=== PATIENT | female | born 1950 | race Caucasian/White ===

== ENCOUNTER 2016-06-30 21:20 | Emergency (ER) | payer OTHER ==
[~2016-06-30] VITALS: Ht 152.4 cm; Wt 83.5 kg
[~2016-06-30 21:20] MED LIST: BUPR1TAB29 PO; EFFE150C PO; HYDR-3533 PO; LISI40TA PO; MIRA0.25 PO; ROPI2TAB PO; TRIA1TAB5 PO; [UNRECOGNIZED DRUG - CODE] PO
[2016-06-30 21:47] VITALS: BP 92/55; PULSE 77; RESP 16; TEMP 98.7; O2SAT 97
[2016-06-30] MEDS ORDERED: AMLO5TAB2 PO (22:08)
--- NOTE | 2016-06-30 22:22 | PD ---
HPI Chief Complaint: Pain: Acute or Chronic Time Seen by Provider: 22:21 Travel History International Travel<30 days: No Contact w/Intl Traveler<30days: No Traveled to known affect area: No History of Present Illness HPI Patient 66-year-old female with chronic right knee pain scheduled for TKR with Dr. Mallory on 07/11/15. She has been using her opioid sparingly and unfortunately has had acute pain today. She took none yesterday and none this morning and had acute worsening in the afternoon, denies any injury. She states that she took 2 hydrocodone 10 mg at 6 PM. She came here because they were not helping much but while waiting she did start to feel improvement. As I talk with hand examine her she states that her pain is relatively minor at this point. She denies any other medical complaints at this time including dizziness, chest pain, headache. PFSH Past Medical History Hx Anticoagulant Therapy: No Arthritis: Yes (RHEUMATOID) Asthma: Yes Autoimmune Disease: Yes (Systemic LUPUS, RA, FIBROMYALGIA) Blood Disorders: No Anxiety: Yes Depression: Yes Cardiovascular Problems: Yes (htn takes no meds) COPD: Yes Diabetes: No Diminished Hearing: No Fibromyalgia: Yes Gastrointestinal Disorders: No Gout: Yes Genitourinary: No Headaches: Yes Hypertension: Yes Immune Disorder: Yes (lupus) Implanted Vascular Access Dvce: No Musculoskeletal: Yes (BILATERAL PLANTAR FASCITIS) Neurologic: Yes Psychiatric: Yes (INPATIENT FOR NERVOUS BREAKDOWN 1969-) Reproductive: No Respiratory: Yes (asthma) Immunizations Current: Yes Migraines: Yes Tetanus Vaccination: < 5 Years Influenza Vaccination: Yes ?: Not Menopausal: Yes Past Surgical History Oral Surgery: Yes Other Surgery: Yes (HEMORRHOIDECTOMY) Social History Alcohol Use: Yes (Occ.) Tobacco Use: No Substance Use: No Allergies-Medications (Allergen,Severity, Reaction): Coded Allergies: Keflex (Verified Allergy, Severe, ANAPHYLAXIS, 06/30/16) Cat Dander (Verified Allergy, Intermediate, rhinitis, 06/30/16) Cultivated Oat Pollen (Verified Allergy, Intermediate, "Pollen Allergy" per patient report, 06/30/16) Dust (Verified Allergy, Intermediate, environmental allergy, 06/30/16) Lyrica (Verified Allergy, Intermediate, rash, 06/30/16) Molds and Smuts (Verified Allergy, Intermediate, environmental , 06/30/16) Prednisone (Verified Allergy, Intermediate, rash, 06/30/16) Penicillin (Verified Allergy, Mild, itching, 06/30/16) Sulfa (Verified Allergy, Mild, oral sores, 06/30/16) Gabapentin (Verified Adverse Reaction, Mild, falls, 06/30/16) Reported Meds & Prescriptions Reported Meds & Active Scripts Active Lortab (Hydrocodone-Acetaminophen) 5-325 Mg Tab 1 Tab PO Q6H PRN Reported Amlodipine (Amlodipine Besylate) 5 Mg Tab 5 Mg PO DAILY Triamterene-Hydrochlorothiazide 75-50 Mg Tab 1 Tab PO DAILY Ropinirole 2 Mg Tab 2 Mg PO HS Mirapex (Pramipexole Dihydrochloride) 0.25 Mg Tab 0.25 Mg PO DAILY Lisinopril 40 Mg Tab 40 Mg PO DAILY Effexor XR 24 HR (Venlafaxine HCl) 150 Mg Cap 225 Mg PO DAILY Bupropion HCl ER 12 HR (Bupropion HCl) 150 Mg Tab 150 Mg PO DAILY Review of Systems Eyes: No: Blurred Vision HENT: No: Headaches, Vertigo, Lightheadedness Cardiovascular: No: Chest Pain or Discomfort Respiratory: No: Shortness of Breath Musculoskeletal: Positive: Other (see the history of present illness) Neurologic: No: Weakness, Focal Abnormalities, Paresthesia, Sensory Disturbance Physical Exam Narrative GENERAL: Well-developed and well-nourished adult female in no acute distress. SKIN: Warm and dry. Good turgor without tenting. HEAD: Normocephalic and atraumatic. EYES: PERRL bilaterally, 5mm. EOMI bilaterally. No injection or icterus present. No proptosis. Lids without edema or erythema. NECK: Supple, no midline tenderness, crepitus or step-offs. Trachea midline, no JVD. No cervical or facial lymphadenopathy. CARDIOVASCULAR: Regular rate and rhythm without murmurs, rubs, clicks or gallops. Dorsalis pedis and posterior tibial pulses 2+ bilaterally. Trace bilateral pedal edema. Negative bilateral Homans sign. RESPIRATORY: Clear to auscultation bilaterally with symmetrical rise and fall, no distress or use of accessory muscles. MUSCULOSKELETAL: Right knee has no tenderness to palpation. Wrist range of motion in flexion, full extension. Has crepitus with flexion. No edema or warmth or discoloration of the right knee. Patient freely moving all four extremities spontaneously. Extremities without clubbing or cyanosis. No obvious deformities. NEUROLOGIC: CN II-XII grossly intact. Awake and alert. Strength 5/5 bilateral knee flexion, knee extension, plantar and dorsiflexion. Sensation intact distal tip of all toes of right foot. Normal speech. PSYCHIATRIC: Appropriate mood and affect; insight and judgment normal. Data Data Last Documented VS Vital Signs Date Time Temp Pulse Resp B/P Pulse Ox O2 Delivery O2 Flow Rate FiO2 06/30/16 21:47 98.7 77 16 92/55 97 MDM Medical Decision Making Medical Screen Exam Complete: Yes Emergency Medical Condition: Yes Differential Diagnosis Chronic pain versus acute on chronic pain versus noncompliance versus hypotension Narrative Course Patient is a 66-year-old female presenting with acute on chronic knee pain despite no new injuries. She has been using a subtherapeutic dose of her opioid and was recently taken off of anti-inflammatories. Proximally 4 hours prior to exam she took 20 mg of hydrocodone which started to begin to work while she was here. She reports near complete resolution of the pain. This time there is no emergent treatment necessary. Her blood pressure was slightly low, likely secondary to the opioids however states she frequently runs low and she consistently denies any cardiopulmonary or neurologic symptoms. I discussed with Dr. Oviedo who agrees there is no need for emergent workup or treatment at this time. Patient will be driven home by her and recommend she take her blood pressure in the morning before taking her blood pressure medications and not take unless systolic blood pressure is greater than 130. Recommend contacting her orthopedist in the morning for pain management plan.See discharge paperwork for further instructions. The plan was discussed with the patient who acknowledged their understanding and agreement. Reinforced the follow-up with primary care is critically important. Patient instructed on emergent conditions that should prompt return to ED. Diagnosis Primary Impression: Osteoarthritis of right knee Qualified Code: M17.11 - Primary osteoarthritis of right knee Patient Instructions: General Instructions Additional Instructions: Do not take any more pain medication tonight Recommend restarting in the morning and take every 8 hours as needed to avoid severe pain Check blood pressure in the morning and only take her blood pressure medications if systolic blood pressure is greater than 130 Follow-up with your PCP or orthopedist tomorrow Return to the ED for any acute worsening of symptoms Disposition: 01 DISCHARGE HOME Condition: Stable Bryan Osborne III Jun 30, 2016 22:22
== END 2016-06-30 22:50 | disposition home or self-care (01) ==
LOC: PHED 21:20 → PHEFT 22:50
DX: M17.11 Unilateral primary osteoarthritis, right knee (principal); G89.29 Other chronic pain
CPT/HCPCS: 99283

== ENCOUNTER 2016-07-04 16:20 | Inpatient (IN) | payer OTHER, MEDICARE ==
[~2016-07-04] VITALS: Ht 152.4 cm; Wt 87.7 kg
[~2016-07-04 16:20] MED LIST changes: +AMLO5TAB2 PO; -[UNRECOGNIZED DRUG - CODE] PO
[2016-07-11] MEDS ORDERED: METOPROLOL TARTRATE 25 MG TAB PO PRN (12:00)
[2016-07-11] MEDS ORDERED: NEOSTIGMINE 3 MG/3 ML SYR IV ONE (12:00)
[2016-07-11] MEDS ORDERED: ROPIVACAINE PERI-ARTICULAR INJECTION. PERIART SCH ×5 (12:00)
[2016-07-11] MEDS ORDERED: INSULIN HUMAN REGULAR 1,000 UNITS/10 ML VIAL SQ PRN (12:00)
[2016-07-11] MEDS ORDERED: ONDANSETRON HCL 4 MG/2 ML VIAL IV PUSH ONE (12:00)
[2016-07-11] MEDS ORDERED: LACTATED RINGER'S 1000 ML INJ 1,000 ML IV ONE (12:00)
[2016-07-11] MEDS: SODIUM CHLORID 0.9% 500 ML IV SCH (12:00)
[2016-07-11] MEDS: LACTATED RINGER'S 1000 ML IV SCH (12:00)
[2016-07-11] MEDS ORDERED: VANCOMYCIN 1000 MG/NS 250 ML (for <70 kg) IV SCH ×2 (12:00)
[2016-07-11] MEDS ORDERED: PROPOFOL 200 MG/20 ML AMP IV ONE (12:00)
[2016-07-11] MEDS ORDERED: GENTAMICIN SULFATE 80 MG/2 ML VIAL ONE (12:28)
[2016-07-11] MEDS ORDERED: CLINDAMYCIN INJ 900 MG in SODIUM CHLORIDE 0.9% INJ 100 ML IV SCH (12:30)
[2016-07-11] MEDS ORDERED: VENL75TA PO (12:41)
[2016-07-11] MEDS ORDERED: HYDR-3535 PO (12:41)
[2016-07-11] MEDS ORDERED: K-TA10TA PO (12:41)
[2016-07-11] MEDS ORDERED: TIZA4TAB PO (12:41)
[2016-07-11] MEDS ORDERED: CYCL1TAB29 PO (12:41)
[2016-07-11 12:48] VITALS: BP 130/80; PULSE 73; RESP 16; TEMP 98.5; O2SAT 98
[2016-07-11] MEDS ORDERED: BUPIVACAINE HCL PF 0.25% 30 ML VIAL NB ONE (12:59)
[2016-07-11] MEDS ORDERED: BUPIVACAINE HCL PF 0.5% 30 ML VIAL NB ONE (12:59)
[2016-07-11] MEDS ORDERED: MIDAZOLAM HCL 5 MG/5 ML VIAL ONE (13:05)
[2016-07-11] MEDS ORDERED: FAMOTIDINE 20 MG/2 ML VIAL ONE (13:13)
[2016-07-11] MEDS ORDERED: ACETAMINOPHEN 1000 MG/100 ML VIAL IV ONE (13:14)
[2016-07-11] MEDS ORDERED: fentaNYL CITRATE 250 MCG/5 ML AMP ONE ×2 (13:14→16:03)
[2016-07-11] MEDS ORDERED: CLINDAMYCIN PHOS 600 MG/4 ML VIAL ONE (14:15)
[2016-07-11] MEDS ORDERED: Post-op Orders (for Pharmacy) MISC XX ONE (15:53)
[2016-07-11] MEDS ORDERED: WALKER WHEELS/F1 MIS (15:56)
[2016-07-11] MEDS ORDERED: CPMMACHINE (15:57)
[2016-07-11] MEDS ORDERED: BEDSIDE COMMODE1 MI1 (15:58)
[2016-07-11] MEDS ORDERED: MORPHINE SULFATE 30 MG/30 ML PCA IV SCH (16:00)
[2016-07-11] MEDS ORDERED: ZOLPIDEM TARTRATE 5 MG TAB PO PRN (16:00)
[2016-07-11] MEDS ORDERED: NALOXONE HCL 0.4 MG/ML AMP IV PRN (16:00)
[2016-07-11] MEDS ORDERED: ALUMINUM/MAGNESIUM/SIMETH 30 ML CUP PO PRN (16:00)
[2016-07-11] MEDS ORDERED: SODIUM CHLORIDE 0.9% FLUSH 5 ML FLUSH IVF PRN (16:00)
[2016-07-11] MEDS: PCA - TOTAL MG MORPHINE DELIVERED PER SHIFT SCH ×2 (16:00→22:00)
[2016-07-11] MEDS ORDERED: PILL SPLITTER OTHER PRN (16:00)
[2016-07-11] MEDS ORDERED: ONDANSETRON HCL 4 MG/2 ML VIAL IVP PRN (16:00)
[2016-07-11] MEDS ORDERED: MORPHINE SULFATE 4 MG/ML INJ ONE (16:04)
--- NOTE | 2016-07-11 16:04 | HHI.PR ---
Immediate Post Op Note Procedure Date: Jul 11, 2016 Pre Op Diagnosis: R Knee Sever OA,Genu Valgus deformity RA Post Op Diagnosis: Same Surgeon: Garth Espinoza MD Customs Guard(s): Mariel Kumar PA-C Procedure: R TKR Complications: None Specimen(s) removed: None Estimated blood loss: <50cc Anesthesia: General, Regional Block Drains: Hemovac Patient to: PACU Patient Condition: Good Implant/Devices: SEE IMPLANT LOG (if applicable) Date/Time of Procedure: SEE SURGICAL CARE RECORD Garth Espinoza MD Jul 11, 2016 16:04
[2016-07-11] MEDS ORDERED: *morphine SULFATE 8 MG/ML PERIprocedure ONLY ONE ×2 (16:07→16:59)
[2016-07-11] MEDS: LACTATED RINGER'S 1000 ML INJ 1,000 ML IV SCH (16:21)
--- NOTE | 2016-07-11 16:43 | RADRPT ---
EXAM DATE/TIME: 07/11/2016 16:06 [facility] COMPARISON: No previous studies available for comparison. INDICATIONS : Post op right knee surgery. MEDICAL HISTORY : None. SURGICAL HISTORY : None. ENCOUNTER: Initial ACUITY: 1 day PAIN SCORE: Non-responsive. LOCATION: Right knee FINDINGS: Two view examination of the right knee demonstrates a total knee arthroplasty. The components are eli ropriately positioned. Suprapatellar drain is in place. No fracture identified. CONCLUSION: Appropriate postoperative appearance of the right knee status post total arthroplasty. No fractu re. Elmer Vitale MD on July 11, 2016 at 16:41 Board Certified Radiologist. This report was verified electronically.
[2016-07-11] MEDS ORDERED: *ENALAPRILAT 1.25 MG/ML VIAL PERIprocedural Use ONLY ONE (16:59)
--- NOTE | 2016-07-11 17:48 | PD.CONS ---
HPI Service [facility] Consult Requested By Reason for Consult Medical management Primary Care Physician Patrick Baldwin MD Diagnoses: History of Present Illness Patient is a very pleasant 66-year-old female history of rheumatoid arthritis, fibromyalgia who was admitted here under Dr. Mallory's service and underwent right total knee replacement. Patient apparently has been having increasing pain and difficulty ambulation for the past 6 months now. Patient still is up ambulatory independently and occasionally uses a cane or walker for long distances. Increasing pain and difficulty ambulation prompted consult to orthopedic and [facility] Patient currently is on MAIL ORDER SORTER pump. Review of Systems Constitutional: DENIES: Diaphoretic episodes, Fatigue, Fever, Weight gain, Weight loss, Chills, Dizziness, Change in appetite, Night Sweats Endocrine: DENIES: Abnorml menstrual pattern, Heat/cold intolerance, Polydipsia , Polyuria, Polyphagia Eyes: DENIES: Blurred vision, Diplopia, Eye inflammation, Eye pain, Vision loss , Photosensitivity, Double Vision Ears, nose, mouth, throat: DENIES: Tinnitus, Hearing loss, Vertigo, Nasal discharge, Oral lesions, Throat pain, Hoarseness, Ear Pain, Running Nose, Epistaxis, Sinus Pain, Toothache, Odynophagia Respiratory: DENIES: Apneas, Cough, Snoring, Wheezing, Hemoptysis, Sputum production, Shortness of breath Cardiovascular: DENIES: Chest pain, Palpitations, Syncope, Dyspnea on Exertion , PND, Lower Extremity Edema, Orthopnea, Claudication Gastrointestinal: DENIES: Abdominal pain, Black stools, Bloody stools, Constipation, Diarrhea, Nausea, Vomiting, Difficulty Swallowing, Anorexia Genitourinary: DENIES: Abnormal vaginal bleeding, Dysmenorrhea, Dyspareunia, Sexual dysfunction, Urinary frequency, Urinary incontinence, Urgency, Hematuria , Dysuria, Nocturia, Vaginal discharge Musculoskeletal: COMPLAINS OF: Joint pain Integumentary: DENIES: Abnormal pigmentation, Pruritus, Rash, Nail changes, Breast masses, Breast skin changes, Nipple discharge Hematologic/lymphatic: DENIES: Bruising, Lymphadenopathy Immunologic/allergic: DENIES: Eczema, Urticaria Neurologic: COMPLAINS OF: Abnormal gait (secondary to pain), DENIES: Headache , Localized weakness, Paresthesias, Seizures, Speech Problems, Tremor, Poor Balance Psychiatric: DENIES: Anxiety, Confusion, Mood changes, Depression, Hallucinations, Agitation, Suicidal Ideation, Homicidal Ideation, Delusions Past Family Social History Allergies: Coded Allergies: Keflex (Verified Allergy, Severe, ANAPHYLAXIS, 07/11/16) Cat Dander (Verified Allergy, Intermediate, rhinitis, 07/11/16) Cultivated Oat Pollen (Verified Allergy, Intermediate, "Pollen Allergy" per patient report, 07/11/16) Dust (Verified Allergy, Intermediate, environmental allergy, 07/11/16) Lyrica (Verified Allergy, Intermediate, rash, 07/11/16) Molds and Smuts (Verified Allergy, Intermediate, environmental , 07/11/16) Prednisone (Verified Allergy, Intermediate, rash, 07/11/16) Penicillin (Verified Allergy, Mild, itching, 07/11/16) Sulfa (Verified Allergy, Mild, oral sores, 07/11/16) Gabapentin (Verified Adverse Reaction, Mild, falls, 07/11/16) Past Medical History History of hypertension History of depression History of chronic pain History of restless leg syndrome History of rheumatoid arthritis/lupus/fibromyalgia Past Surgical History No previous surgeries Reported Medications Lisinopril 40 mg daily Michael 150 mg at bedtime Effexor 75 mg at bedtime Effexor 150 mg before meals Flexeril 10 mg 3 times a day Tizanidine 4 mg 3 times a day Amlodipine 5 mg daily Mirapex 1.25 mg at bedtime4 mg at bedtime Coumadin IV MAIL ORDER SORTER morphine pump As outpatient on Lortab when necessary for pain Active Ordered Medications See EMR Family History Noncontributory Social History Denies smoking Very rarely alcohol use Physical Exam Vital Signs Vital Signs Date Time Temp Pulse Resp B/P Pulse Ox O2 Delivery O2 Flow Rate FiO2 07/11/16 17:00 98.0 65 16 163/89 98 Nasal Cannula 2 07/11/16 16:56 64 16 174/80 98 07/11/16 16:45 65 16 168/83 97 Nasal Cannula 2 07/11/16 16:30 70 16 164/84 94 Nasal Cannula 3 07/11/16 16:21 16 07/11/16 16:15 63 16 160/77 94 Nasal Cannula 3 07/11/16 16:00 64 15 141/92 97 Nasal Cannula 3 07/11/16 15:54 98.4 61 15 152/78 95 Nasal Cannula 4 07/11/16 12:48 98.5 73 16 130/80 98 Physical Exam GENERAL: This is a well-nourished, well-developed patient, in no apparent distress. SKIN: No rashes, ecchymoses or lesions. Cool and dry. HEAD: Atraumatic. Normocephalic. No temporal or scalp tenderness. EYES: Pupils equal round and reactive. Extraocular motions intact. No scleral icterus. No injection or drainage. ENT: Nose without bleeding, purulent drainage or septal hematoma. Throat without erythema, tonsillar hypertrophy or exudate. Uvula midline. Airway patent. NECK: Trachea midline. No JVD or lymphadenopathy. Supple, nontender, no meningeal signs. CARDIOVASCULAR: Regular rate and rhythm without murmurs, gallops, or rubs. RESPIRATORY: Clear to auscultation. Breath sounds equal bilaterally. No wheezes , rales, or rhonchi. GASTROINTESTINAL: Abdomen soft, non-tender, nondistended. No hepato-splenomegaly , or palpable masses. No guarding. MUSCULOSKELETAL: Extremities without clubbing, cyanosis, or edema. No calf tenderness. Negative Homans sign bilaterally. NEUROLOGICAL: Awake and alert. Cranial nerves II through XII intact. Motor and sensory grossly within normal limits. Right lower extremity motor exam limited by postop pain Normal speech. Imaging Last Impressions Knee X-Ray 07/11/16 1551 Signed Impressions: Service Date/Time: Monday, July 11, 2016 16:06 - CONCLUSION: Appropriate postoperative appearance of the right knee status post total arthroplasty. No fracture. Elmer Vitale MD Assessment and Plan Assessment and Plan 66-year-old female Status post right total knee replacement Pain management per primary service PTOT consulted Continue on Flexeril/T Monday need History of hypertension continue lisinopril 40 mg daily/amlodipine History of depression continue on with Wellbutrin and Effexor History of restless leg syndrome continue on Mirapex and Requip Patient placed on Coumadin for DVT prophylaxis Thank you for this consult we'll follow patient in-house with you Discharge planning - case management consulted plan for discharge to rehabilitation facility on Monday Discussed Condition With Patient Phuc Quiroz MD Jul 11, 2016 17:48
[2016-07-11] MEDS: CHLORHEXIDINE GLUCONATE 4% SOLN 120 ML BTL TOP SCH (17:50)
[2016-07-11] MEDS: CYCLOBENZAPRINE HCL 10 MG TAB PO SCH (18:02)
[2016-07-11 20:08] VITALS: BP 95/52; PULSE 66; RESP 18; TEMP 97.8; O2SAT 96
[2016-07-11] MEDS: SODIUM CHLORIDE 0.9% FLUSH 5 ML FLUSH IVF SCH (21:00)
[2016-07-11] MEDS: buPROPion HCL 150 MG SUSTAINED RELEASE TAB PO SCH (21:04)
[2016-07-11] MEDS: VENLAFAXINE HCL XR 75 MG CAP PO SCH (21:04)
[2016-07-11] MEDS: PRAMIPEXOLE DIHYDROCHLORIDE 1 MG TAB PO SCH (22:31)
[2016-07-11] MEDS: CLINDAMYCIN INJ 600 MG in SODIUM CHLORIDE 0.9% INJ 100 ML IV SCH (22:56)
[2016-07-12] VITALS (8 sets, daily range): BP systolic 95–114; BP diastolic 44–58; PULSE 67–81; RESP 18–19; TEMP 98.8–100.1; O2SAT 88–97
[2016-07-12] MEDS: CLINDAMYCIN INJ 600 MG in SODIUM CHLORIDE 0.9% INJ 100 ML IV SCH ×3 (02:56→15:00)
[2016-07-12] MEDS: LACTATED RINGER'S 1000 ML INJ 1,000 ML IV SCH ×3 (04:21→20:21)
[2016-07-12] MEDS: SODIUM CHLORID 0.9% 500 ML IV SCH (04:40)
[2016-07-12] MEDS: PCA - TOTAL MG MORPHINE DELIVERED PER SHIFT SCH ×3 (05:43→20:24)
--- NOTE | 2016-07-12 06:56 | PD.ORT.PN ---
Subjective Subjective Remarks POD#1 R TKR Explained to patient operative findings No sob,chest pain Objective Vitals Vital Signs Date Time Temp Pulse Resp B/P Pulse Ox O2 Delivery O2 Flow Rate FiO2 07/12/16 05:43 22 07/12/16 04:07 99.2 72 18 105/51 97 07/12/16 01:54 88 07/12/16 00:11 98.9 67 19 99/46 95 07/11/16 22:00 20 07/11/16 20:08 97.8 66 18 95/52 96 07/11/16 17:00 98.0 65 16 163/89 98 Nasal Cannula 2 07/11/16 16:56 64 16 174/80 98 07/11/16 16:45 65 16 168/83 97 Nasal Cannula 2 07/11/16 16:30 70 16 164/84 94 Nasal Cannula 3 07/11/16 16:21 16 07/11/16 16:15 63 16 160/77 94 Nasal Cannula 3 07/11/16 16:00 64 15 141/92 97 Nasal Cannula 3 07/11/16 15:54 98.4 61 15 152/78 95 Nasal Cannula 4 07/11/16 12:48 98.5 73 16 130/80 98 I/O 07/11/16 07/11/16 07/11/16 07/12/16 07/12/16 07/12/16 07:00 15:00 23:00 07:00 15:00 23:00 Intake Total 2040 ml Output Total 1055 ml Balance 985 ml Intake Oral 360 ml IV Total 100 ml Autotransfusion 280 ml Other 1300 ml Output Urine Total 575 ml Drainage Total 50 ml Estimated Blood Loss 150 ml Autotransfusion 280 ml # Bowel Movements 0 Imaging Last 24 hours Impressions Knee X-Ray 07/11/16 1551 Signed Impressions: Service Date/Time: Monday, July 11, 2016 16:06 - CONCLUSION: Appropriate postoperative appearance of the right knee status post total arthroplasty. No fracture. Elmer Vitale MD Objective Remarks N/V intact Neg luiz's sign;no calf tenderness Assessment & Plan Assessment and Plan Ortho stable PT,Rehab Coumadin for dvt prophylaxsis D/C to snf on 07/13 Garth Espinoza MD Jul 12, 2016 06:56
[2016-07-12] MEDS: VENLAFAXINE HCL XR 75 MG CAP PO SCH ×2 (08:09→20:23)
[2016-07-12] MEDS: CYCLOBENZAPRINE HCL 10 MG TAB PO SCH ×3 (08:09→16:03)
[2016-07-12] MEDS: LISINOPRIL 20 MG TAB PO SCH (08:09)
[2016-07-12] MEDS: amLODIPine BESYLATE 5 MG TAB PO SCH (08:09)
[2016-07-12] MEDS: SODIUM CHLORIDE 0.9% FLUSH 5 ML FLUSH IVF SCH ×2 (08:09→20:23)
[2016-07-12] MEDS: ACETAMINOPHEN/HYDROcodone 325 MG/10 MG TAB PO PRN ×3 (08:10→16:04)
[2016-07-12 08:17] LABS: HEMATOCRIT 27.1 % (35.0-46.0); REVIEW FLAG FINAL
[2016-07-12 08:18] LABS: PROTHROMBIN TIME - PATIENT 11.5 SEC (9.8-11.6)
[2016-07-12] MEDS: LACTATED RINGER'S 1000 ML IV SCH (08:45)
[2016-07-12] MEDS: MAGNESIUM HYDROXIDE SUSP 30 ML CUP PO SCH ×2 (10:20→20:22)
--- NOTE | 2016-07-12 11:07 | HHI.PR ---
Subjective Remarks pain post op- with spasms- right knee denies any chest pain or shortness of breath good po Objective Vitals Vital Signs Date Time Temp Pulse Resp B/P Pulse Ox O2 Delivery O2 Flow Rate FiO2 07/12/16 10:23 Room Air 07/12/16 08:00 98.8 81 18 114/56 95 07/12/16 05:43 22 07/12/16 04:07 99.2 72 18 105/51 97 07/12/16 01:54 88 07/12/16 00:11 98.9 67 19 99/46 95 07/11/16 22:00 20 07/11/16 20:08 97.8 66 18 95/52 96 07/11/16 17:00 98.0 65 16 163/89 98 Nasal Cannula 2 07/11/16 16:56 64 16 174/80 98 07/11/16 16:45 65 16 168/83 97 Nasal Cannula 2 07/11/16 16:30 70 16 164/84 94 Nasal Cannula 3 07/11/16 16:21 16 07/11/16 16:15 63 16 160/77 94 Nasal Cannula 3 07/11/16 16:00 64 15 141/92 97 Nasal Cannula 3 07/11/16 15:54 98.4 61 15 152/78 95 Nasal Cannula 4 07/11/16 12:48 98.5 73 16 130/80 98 I/O 07/11/16 07/11/16 07/11/16 07/12/16 07/12/16 07/12/16 07:00 15:00 23:00 07:00 15:00 23:00 Intake Total 2040 ml 360 ml Output Total 1055 ml Balance 985 ml 360 ml Intake Oral 360 ml 360 ml IV Total 100 ml Autotransfusion 280 ml Other 1300 ml Output Urine Total 575 ml Drainage Total 50 ml Estimated Blood Loss 150 ml Autotransfusion 280 ml # Voids 1 # Bowel Movements 0 0 Result Diagram: 07/12/16 0708 Imaging Last Impressions Knee X-Ray 07/11/16 1551 Signed Impressions: Service Date/Time: Monday, July 11, 2016 16:06 - CONCLUSION: Appropriate postoperative appearance of the right knee status post total arthroplasty. No fracture. Elmer Vitale MD Objective Remarks GENERAL: awake and alert, in pain HEAD: Normocephalic. EYES: No scleral icterus. No injection or drainage. NECK: Supple, trachea midline. No JVD or lymphadenopathy. CARDIOVASCULAR: Regular rate and rhythm without murmurs RESPIRATORY: Breath sounds equal bilaterally. No accessory muscle use. GASTROINTESTINAL: Abdomen soft, non-tender, nondistended. MUSCULOSKELETAL: No cyanosis, or edema. right LE- poast op knee dressing in place, no calf swelling BACK: No CVA tenderness. Procedures 07/11- right total knee replacement Urinary Catheter: Yes Assessment to: Remove Date of Removal: Jul 12, 2016 A/P Assessment and Plan 66-year-old female Status post right total knee replacement 07/11 Pain management per primary service PTOT today Continue on Flexeril History of hypertension continue lisinopril 40 mg daily History of depression continue on with Wellbutrin and Effexor History of restless leg syndrome continue on Mirapex and Requip Patient placed on Coumadin for DVT prophylaxis Discharge planning - case management consulted plan for discharge to rehabilitation facility on Phuc Quiroz MD Jul 12, 2016 11:07
[2016-07-12] MEDS: WARFARIN SOD 5 MG TAB PO SCH (16:03)
[2016-07-12] MEDS: SENNOSIDES 8.6 MG TAB PO SCH (20:22)
[2016-07-12] MEDS: PRAMIPEXOLE DIHYDROCHLORIDE 1 MG TAB PO SCH (20:23)
[2016-07-12] MEDS: buPROPion HCL 150 MG SUSTAINED RELEASE TAB PO SCH (20:23)
[2016-07-13] VITALS (8 sets, daily range): BP systolic 113–163; BP diastolic 58–77; PULSE 75–85; RESP 18–19; TEMP 97.6–99.2; O2SAT 94–98
[2016-07-13] MEDS: ACETAMINOPHEN/HYDROcodone 325 MG/10 MG TAB PO PRN ×3 (00:02→11:45)
[2016-07-13 06:59] LABS: INTERNATIONAL NORMALIZED RATIO 1.1 RATIO; PROTHROMBIN TIME - PATIENT 12.2 SEC (9.8-11.6)
--- NOTE | 2016-07-13 07:39 | PD.ORT.PN ---
Subjective Subjective Remarks pt complaints of post op left knee pain states she has only been up to use the commode Objective Vitals Vital Signs Date Time Temp Pulse Resp B/P Pulse Ox O2 Delivery O2 Flow Rate FiO2 07/13/16 04:09 98.2 76 19 113/58 96 07/13/16 00:08 98.9 85 18 152/63 95 07/12/16 20:24 99.7 69 19 96/58 94 07/12/16 16:10 Room Air 07/12/16 16:00 98.8 76 18 95/44 92 07/12/16 14:15 Room Air 07/12/16 12:16 Room Air 07/12/16 12:00 100.1 78 18 114/55 93 07/12/16 11:12 Room Air 07/12/16 10:23 Room Air 07/12/16 09:00 95 Nasal Cannula 2.50 07/12/16 08:00 98.8 81 18 114/56 95 I/O 07/12/16 07/12/16 07/12/16 07/13/16 07/13/16 07/13/16 07:00 15:00 23:00 07:00 15:00 23:00 Intake Total 360 ml 1200 ml 742 ml 240 ml Output Total 400 ml 800 ml Balance 360 ml 1200 ml 342 ml -560 ml Intake Oral 360 ml 1200 ml 360 ml 240 ml IV Total 382 ml Output Urine Total 400 ml 800 ml Bladder Scan Volume Amount 308 ml # Voids 1 1 # Bowel Movements 0 0 0 Result Diagram: 07/12/16 0708 Other Results Laboratory Tests Test 07/13/16 06:17 Prothrombin Time 12.2 SEC (9.8-11.6) Prothromb Time International 1.1 RATIO Ratio Imaging Last 24 hours Impressions Knee X-Ray 07/11/16 1551 Signed Impressions: Service Date/Time: Monday, July 11, 2016 16:06 - CONCLUSION: Appropriate postoperative appearance of the right knee status post total arthroplasty. No fracture. Elmer Vitale MD Objective Remarks left knee dressings dry and intact N/V intact Neg luiz's sign;no calf tenderness Assessment & Plan Assessment and Plan POD # 2 s/p L TKA Ortho stable PT,Rehab Coumadin for dvt prophylaxsis anticipate discharge to SNF 07/14 Mariel Kumar Jul 13, 2016 07:39
[2016-07-13] MEDS: CYCLOBENZAPRINE HCL 10 MG TAB PO SCH ×3 (08:19→18:25)
[2016-07-13] MEDS: SODIUM CHLORIDE 0.9% FLUSH 5 ML FLUSH IVF SCH ×2 (08:19→20:00)
[2016-07-13] MEDS: amLODIPine BESYLATE 5 MG TAB PO SCH (08:19)
[2016-07-13] MEDS: MAGNESIUM HYDROXIDE SUSP 30 ML CUP PO SCH ×2 (08:19→20:00)
[2016-07-13] MEDS: LISINOPRIL 20 MG TAB PO SCH (08:19)
[2016-07-13] MEDS: VENLAFAXINE HCL XR 75 MG CAP PO SCH ×2 (08:19→20:00)
--- NOTE | 2016-07-13 10:05 | HHI.PR ---
Subjective Remarks no complains very motivated with more therapy Objective Vitals Vital Signs Date Time Temp Pulse Resp B/P Pulse Ox O2 Delivery O2 Flow Rate FiO2 07/13/16 09:37 97 Nasal Cannula 21 07/13/16 08:00 98.2 83 18 163/77 94 07/13/16 07:40 Room Air 07/13/16 04:09 98.2 76 19 113/58 96 07/13/16 00:08 98.9 85 18 152/63 95 07/12/16 20:24 99.7 69 19 96/58 94 07/12/16 16:10 Room Air 07/12/16 16:00 98.8 76 18 95/44 92 07/12/16 14:15 Room Air 07/12/16 12:16 Room Air 07/12/16 12:00 100.1 78 18 114/55 93 07/12/16 11:12 Room Air 07/12/16 10:23 Room Air I/O 07/12/16 07/12/16 07/12/16 07/13/16 07/13/16 07/13/16 07:00 15:00 23:00 07:00 15:00 23:00 Intake Total 360 ml 1200 ml 742 ml 990 ml Output Total 400 ml 800 ml Balance 360 ml 1200 ml 342 ml 190 ml Intake Oral 360 ml 1200 ml 360 ml 240 ml IV Total 382 ml 750 ml Output Urine Total 400 ml 800 ml Bladder Scan Volume Amount 308 ml # Voids 1 1 # Bowel Movements 0 0 0 Result Diagram: 07/12/16 0708 Imaging Last Impressions Knee X-Ray 07/11/16 1551 Signed Impressions: Service Date/Time: Monday, July 11, 2016 16:06 - CONCLUSION: Appropriate postoperative appearance of the right knee status post total arthroplasty. No fracture. Elmer Vitale MD Objective Remarks GENERAL: awake and alert, not in distress EYES: No scleral icterus. No injection or drainage. NECK: Supple, trachea midline. No JVD or lymphadenopathy. CARDIOVASCULAR: Regular rate and rhythm without murmurs RESPIRATORY: Breath sounds equal bilaterally. No accessory muscle use. GASTROINTESTINAL: Abdomen soft, non-tender, nondistended. MUSCULOSKELETAL: No cyanosis, or edema. right LE- post op knee dressing in place , no calf swelling Procedures 07/11- right total knee replacement Date of Removal: Jul 12, 2016 A/P Assessment and Plan 66-year-old female Status post right total knee replacement 07/11 Pain management per primary service PTOT daily Continue on Flexeril History of hypertension continue lisinopril 40 mg daily History of depression continue on with Wellbutrin and Effexor History of restless leg syndrome continue on Mirapex and Requip Patient placed on Coumadin for DVT prophylaxis Discharge planning - case management consulted plan for discharge to rehabilitation facility tomorrow per primary service Phuc Quiroz MD Jul 13, 2016 10:05
[2016-07-13] MEDS: CHLORHEXIDINE GLUCONATE 4% SOLN 120 ML BTL TOP SCH (11:43)
[2016-07-13] MEDS: LACTATED RINGER'S 1000 ML IV SCH (11:43)
--- NOTE | 2016-07-13 12:54 | MP ---
cc: KALLI ANN M.D.,JACOBO LARA MD DATE OF OPERATION July 11, 2016 PREOPERATIVE DIAGNOSIS Right knee severe tricompartmental osteoarthritis, severe genu varus deformity, rheumatoid arthritis. POSTOPERATIVE DIAGNOSIS Right knee severe tricompartmental osteoarthritis, severe genu varus deformity, rheumatoid arthritis. PROCEDURE Right total knee arthroplasty - Cemented Biomet Vanguard. SURGEON A MD Alexis MERCHANDISE PLANNING MANAGER Mariel Kumar PA-C SPECIMEN None. ESTIMATED BLOOD LOSS Less than 50 cc. COMPLICATIONS None. ANESTHESIA General. DRAINS Two. TOURNIQUET TIME 54-minutes at 275 mmHg. CONDITION Stable. PLAN OF ACTIVITY As per orders. PROCEDURE My operations administrative assistant Mariel Kumar PA-C, was present for the entire surgical case. She was medically necessary for entire case because of the complexity of the case and to facilitate the performance of the procedure. The AUTOMATION DEVELOPER at back table was not of the skill set for this case to manipulate the instruments e.g. the multiple different soft tissue retractors, trial implants and permanent implants including bone cement. The patient was brought into the operating room, had satisfactory anesthesia by the Department of Anesthesia. The right lower extremity was prepped and draped in the usual sterile manner. The extremity was exsanguinated by elevation, the tourniquet inflated to 275 mmHg. Anterior exposure to the knee was made. Paramedian capsulotomy was performed. The patient was found to have significant tricompartmental osteoarthritis with synovitis and pannus formation from her rheumatoid arthritis. She also had a 17-degree genu varus deformity preoperatively. The remaining portion of the medial and lateral meniscus were removed. The anterior cruciate ligament was removed. The posterior cruciate ligament was preserved. The prepatellar fat pad was surgically excised. Synovectomy was performed involving the suprapatellar pouch region. Using the Biomet Vanguard total knee arthroplasty system, IM guide was used in the distal femur to accept the 62.5 mm femoral component, 5-degree valgus cut. Extramedullary guide was used for the proximal tibia to accept a 71-mm tibial component. Trial reduction was done with the 10 mm insert after appropriate balancing in flexion and extension. The undersurface of the patella was removed to accept a 31-mm three-pronged patellar prosthesis. The patient was found to have satisfactory motion, stability and balance of the knee in flexion and extension. No evidence of instability with varus or valgus stress. All trial components were removed and preparation for cementing was made. The knee was initially injected with local anesthesia provided by the Department of Pharmacy. The knee was then irrigated with copious amounts of sterile saline solution. Then preparation for cementing was made. Two packages of high viscosity Biomet bone cement was used by [employer]. First the tibial component which was a 71-mm tibial component, followed by the femoral component which is a 62.5-mm right femoral component and then the patella, a 31-mm three prong patellar prosthesis was cemented. The bone cement was allowed to harden for 13 minutes and then all excess bone cement was removed. The 10 x 71-mm tibial insert was assembled onto the tibial tray with appropriate locking mechanism. The tourniquet was deflated. All bleeders were coagulated. The wound itself was dry. The knee was irrigated with 4000 cc of sterile saline antibiotic solution. The wound was closed over two Hemovac drains hooked up to an Autovac system. The wound itself was dry. The capsule and extensor mechanism was repaired using multiple interrupted #2 Ticron sutures, the subcuticular layers with 0 Vicryl and 2-0 Vicryl, the skin approximated with skin awais. Sterile dressings were applied. The patient tolerated the procedure well and arrived in the recovery room in stable and satisfactory condition. MD ENDER Kirby/GEOVANI /3:47 PM /12:38 PM
[2016-07-13] MEDS: HYDROmorphone HCL 2 MG TAB PO PRN ×2 (13:11→18:25)
[2016-07-13] MEDS: PCA - TOTAL MG MORPHINE DELIVERED PER SHIFT SCH ×2 (13:40→20:00)
[2016-07-13] MEDS: WARFARIN SOD 5 MG TAB PO SCH (16:07)
[2016-07-13] MEDS: LACTATED RINGER'S 1000 ML INJ 1,000 ML IV SCH ×2 (17:51→20:01)
[2016-07-13] MEDS: PRAMIPEXOLE DIHYDROCHLORIDE 1 MG TAB PO SCH (19:59)
[2016-07-13] MEDS: buPROPion HCL 150 MG SUSTAINED RELEASE TAB PO SCH (20:00)
[2016-07-13] MEDS: SENNOSIDES 8.6 MG TAB PO SCH (20:00)
[2016-07-14 00:30] VITALS: BP 168/72; PULSE 89; RESP 18; TEMP 100.2; O2SAT 93
[2016-07-14] MEDS: ACETAMINOPHEN/HYDROcodone 325 MG/10 MG TAB PO PRN ×2 (01:10→12:49)
[2016-07-14 03:40] VITALS: BP 147/67; PULSE 87; RESP 18; TEMP 99.1; O2SAT 96
[2016-07-14 05:25] LABS: INTERNATIONAL NORMALIZED RATIO 1.2 RATIO; PROTHROMBIN TIME - PATIENT 13.7 SEC (9.8-11.6)
--- NOTE | 2016-07-14 07:59 | HHI.PR ---
Subjective Remarks pain minimal had loose stools overnight had low grade fever- good IS efforts Objective Vitals Vital Signs Date Time Temp Pulse Resp B/P Pulse Ox O2 Delivery O2 Flow Rate FiO2 07/14/16 03:40 99.1 87 18 147/67 96 07/14/16 00:30 100.2 89 18 168/72 93 07/13/16 19:50 99.2 76 18 133/63 96 07/13/16 17:14 96 21 07/13/16 16:00 97.6 79 18 162/69 94 07/13/16 12:00 98.3 75 18 135/69 98 07/13/16 09:37 97 Nasal Cannula 21 07/13/16 08:00 98.2 83 18 163/77 94 I/O 07/13/16 07/13/16 07/13/16 07/14/16 07/14/16 07/14/16 07:00 15:00 23:00 07:00 15:00 23:00 Intake Total 990 ml 600 ml 240 ml 240 ml Output Total 800 ml Balance 190 ml 600 ml 240 ml 240 ml Intake Oral 240 ml 600 ml 240 ml 240 ml IV Total 750 ml Output Urine Total 800 ml # Voids 3 2 3 # Bowel Movements 0 0 0 2 Result Diagram: 07/12/16 0708 Imaging Last Impressions Knee X-Ray 07/11/16 1551 Signed Impressions: Service Date/Time: Monday, July 11, 2016 16:06 - CONCLUSION: Appropriate postoperative appearance of the right knee status post total arthroplasty. No fracture. Elmer Vitale MD Objective Remarks GENERAL: awake and alert, not in distress EYES: No scleral icterus. No injection or drainage. NECK: Supple, trachea midline. No JVD or lymphadenopathy. CARDIOVASCULAR: Regular rate and rhythm without murmurs RESPIRATORY: lungs clear GASTROINTESTINAL: Abdomen soft, non-tender, nondistended. MUSCULOSKELETAL: No cyanosis, or edema. right LE- post op knee dressing in place , no calf swelling Procedures 07/11- right total knee replacement Date of Removal: Jul 12, 2016 A/P Assessment and Plan 66-year-old female Status post right total knee replacement 07/11 Pain management per primary service PTOT daily Continue on Flexeril History of hypertension continue lisinopril 40 mg daily History of depression continue on with Wellbutrin and Effexor History of restless leg syndrome continue on Mirapex and Requip DVT prophylaxis per primary service Diarrhea- patient on 2 stool softeners per protocol- instruct nurse to hold and patient instructed that she may refused if with loose stools encourage incentive spirometry efforts Discharge planning - case management consulted plan for discharge to rehabilitation facility - [place]- per patient's choice Phuc Quiroz MD Jul 14, 2016 07:59
[2016-07-14 08:00] VITALS: BP 160/77; PULSE 86; RESP 18; TEMP 98.4; O2SAT 94
[2016-07-14] MEDS: MAGNESIUM HYDROXIDE SUSP 30 ML CUP PO SCH (09:00)
[2016-07-14] MEDS: SODIUM CHLORIDE 0.9% FLUSH 5 ML FLUSH IVF SCH (09:00)
[2016-07-14] MEDS ORDERED: HYDR-3366 PO (09:20)
[2016-07-14] MEDS: VENLAFAXINE HCL XR 75 MG CAP PO SCH (09:31)
[2016-07-14] MEDS: CYCLOBENZAPRINE HCL 10 MG TAB PO SCH ×2 (09:31→12:49)
[2016-07-14] MEDS: amLODIPine BESYLATE 5 MG TAB PO SCH (09:32)
[2016-07-14] MEDS: LISINOPRIL 20 MG TAB PO SCH (09:32)
--- NOTE | 2016-07-14 10:22 | PD.ORT.PN ---
Subjective Subjective Remarks pt doing better, ready to go to SNF today post op knee pain, no SOB, no chest pain Objective Vitals Vital Signs Date Time Temp Pulse Resp B/P Pulse Ox O2 Delivery O2 Flow Rate FiO2 07/14/16 08:00 98.4 86 18 160/77 94 07/14/16 07:52 Room Air 07/14/16 03:40 99.1 87 18 147/67 96 07/14/16 00:30 100.2 89 18 168/72 93 07/13/16 19:50 99.2 76 18 133/63 96 07/13/16 17:14 96 21 07/13/16 16:00 97.6 79 18 162/69 94 07/13/16 12:00 98.3 75 18 135/69 98 I/O 07/13/16 07/13/16 07/13/16 07/14/16 07/14/16 07/14/16 07:00 15:00 23:00 07:00 15:00 23:00 Intake Total 990 ml 600 ml 240 ml 240 ml Output Total 800 ml Balance 190 ml 600 ml 240 ml 240 ml Intake Oral 240 ml 600 ml 240 ml 240 ml IV Total 750 ml Output Urine Total 800 ml # Voids 3 2 3 # Bowel Movements 0 0 0 2 Result Diagram: 07/12/16 0708 Other Results Laboratory Tests Test 07/14/16 04:48 Prothrombin Time 13.7 SEC (9.8-11.6) Prothromb Time International 1.2 RATIO Ratio Imaging Last 24 hours Impressions Knee X-Ray 07/11/16 1551 Signed Impressions: Service Date/Time: Monday, July 11, 2016 16:06 - CONCLUSION: Appropriate postoperative appearance of the right knee status post total arthroplasty. No fracture. Elmer Vitale MD Objective Remarks seen by Dr. Garth Espinoza left knee dressings dry and intact N/V intact Neg luiz's sign;no calf tenderness Assessment & Plan Assessment and Plan POD # 3 s/p L TKA Ortho stable PT,Rehab Coumadin for dvt prophylaxsis discharge to snf today, orthopedically stable Mariel Kumar Jul 14, 2016 10:22
[2016-07-14 10:30] VITALS: O2SAT 96
[2016-07-14 11:37] VITALS: BP 108/65; PULSE 86; RESP 18; TEMP 98.9; O2SAT 97
[2016-07-14] MEDS: LACTATED RINGER'S 1000 ML IV SCH (12:00)
--- NOTE | 2016-08-04 17:20 | HHI.DS ---
Discharge Summary Admission Date Jul 11, 2016 at 10:22 Discharge Date: Jul 14, 2016 Admitting Diagnosis Right knee osteoarthritis Diagnosis: (1) Osteoarthritis of right knee Diagnosis: Principal Procedures Right total knee arthroplasty Brief History This is a 66 year old female patient who presents with the following history. Patient has had progressive right knee pain. She has history of rheumatoid. She has undergone NSAIDs, analgesics, intra articular steroid injections with little relief. She is hardly able to ambulate due to severe deformity and osteoarthritis of the knee and needed to undergo knee replacement to be able to do ADLS. Imaging x-rays of the right knee show severe tri compartment osteoarthritis and varus deformity of 17 degrees. PE at Discharge seen by Dr. Garth Espinoza left knee dressings dry and intact N/V intact Neg luzi's sign;no calf tenderness Hospital Course Patient underwent satisfactory anaesthesia by the dept of anaesthesia. She underwent left total knee arthroplasty on date of admission. She was treated with low dose coumadin night before surgery and will continue with coumadin for four weeks post operatively to prevent DVT. She did well following her procedure. She was started with full weight bearing ambulation on pod #1 along with CPM machine. She was also followed by medical during her stay. She progressed well and was discharged to a SNF on pod #3. Pt Condition on Discharge: Stable Discharge Disposition: Discharge to SNF Discharge Instructions Diet Instructions: Coumadin (Warfarin) Diet Activities You Can Perform: Weight Bearing as Mariel Cordova Aug 04, 2016 17:20
== END 2016-07-14 12:57 | DRG 470 ==
LOC: HSDI 07-11 10:22 → N06B 07-11 17:24
PROVIDERS: ADMIT Orthopaedic Surgery Orthopaedic Surgery of the Spine; ATTEND Orthopaedic Surgery Orthopaedic Surgery of the Spine
PROC: 3E0T3CZ (ICD-10-PCS; 2016-07-11)
PROC: 0SRC0J9 Replacement of Right Knee Joint with Synthetic Substitute, Cemented, Open Approach (ICD-10-PCS; principal; 2016-07-11 13:41)
DX: M17.9 Osteoarthritis of knee, unspecified (principal); M32.9 Systemic lupus erythematosus, unspecified; I10 Essential (primary) hypertension; G25.81 Restless legs syndrome; M06.9 Rheumatoid arthritis, unspecified; M21.161 Varus deformity, not elsewhere classified, right knee; M65.9 Synovitis and tenosynovitis, unspecified; M79.7 Fibromyalgia
CPT/HCPCS: 36430; 73560; 85014; 85018; 85610; 86891; 94150; C1776; J0131; J0171; J0735; J1580; J1885; J2250; J2270; J2405; J2710; J2795; J3010; J3370; J7050; J7120; L1830

== ENCOUNTER 2016-07-29 02:22 | Emergency (ER) | payer OTHER ==
[~2016-07-29 02:22] MED LIST changes: +BEDSIDE COMMODE1 MI1; +CPMMACHINE; +CYCL1TAB29 PO; +HYDR-3366 PO; -HYDR-3533 PO; +HYDR-3535 PO; +K-TA10TA PO; +TIZA4TAB PO; -TRIA1TAB5 PO; +VENL75TA PO; +WALKER WHEELS/F1 MIS
[2016-07-29 03:03] VITALS: BP 151/72; PULSE 103; RESP 16; TEMP 98.4; O2SAT 98
--- NOTE | 2016-07-29 03:31 | PD ---
HPI Chief Complaint: Pain: Acute or Chronic Time Seen by Provider: 03:22 Travel History International Travel<30 days: No Contact w/Intl Traveler<30days: No Traveled to known affect area: No History of Present Illness HPI 66-year-old white female presents to emergency department from [facility] for evaluation of right groin and leg pain. She states that she had surgery back in the middle of June. She had a right knee replacement by Dr. Mallory. She states since then she's been having intermittent spasming and cramps in her right groin down into her leg. She states that she had been on hydrocodone but they had switched her to Dilaudid 4 mg along with Zanaflex and Flexeril. She states that this is not helping. Her pains are getting worse. They had performed an ultrasound of her leg as well as an x-ray of her hip in the last 1-2 days. According to the patient these were negative. I reviewed a x-ray report that the patient had which confirmed negativity. She states that she has chronic pain from fibromyalgia, restless leg syndrome and arthritis. She denies any chest pain, palpitations, shortness of breath, nausea, vomiting, abdominal pain. She's been eating and drinking normally. She states that the pain in her right knee actually is feeling much better with the pain in her right groin and hip area is actually worsening. Worse with sitting up and moving. She has some relief with remaining still and taking Dilaudid. PFSH Past Medical History Narrative Medical Restless leg syndrome, fibromyalgia, lupus, arthritis, COPD, Hx Anticoagulant Therapy: No Arthritis: Yes (RHEUMATOID) Asthma: Yes Autoimmune Disease: Yes Blood Disorders: No Anxiety: Yes Depression: Yes Cancer: No Cardiovascular Problems: Yes (htn takes no meds) COPD: Yes Diabetes: No Diminished Hearing: No Endocrine: No Fibromyalgia: Yes Gastrointestinal Disorders: No Gout: Yes Genitourinary: No Headaches: Yes Hypertension: Yes Immune Disorder: Yes (lupus) Implanted Vascular Access Dvce: No Musculoskeletal: Yes (BILATERAL PLANTAR FASCITIS) Neurologic: Yes Psychiatric: Yes (INPATIENT FOR NERVOUS BREAKDOWN 1969-) Reproductive: No Respiratory: Yes (asthma) Immunizations Current: Yes Migraines: Yes Seizures: No Tetanus Vaccination: < 5 Years Menopausal: Yes Past Surgical History Narrative Surgical Right total knee, hemorrhoidectomy, oral surgery Oral Surgery: Yes Other Surgery: Yes (HEMORRHOIDECTOMY) Social History Alcohol Use: Yes (Occ.) Tobacco Use: No Substance Use: No Allergies-Medications (Allergen,Severity, Reaction): Coded Allergies: Keflex (Verified Allergy, Severe, ANAPHYLAXIS, 07/29/16) Cat Dander (Verified Allergy, Intermediate, rhinitis, 07/29/16) Cultivated Oat Pollen (Verified Allergy, Intermediate, "Pollen Allergy" per patient report, 07/29/16) Dust (Verified Allergy, Intermediate, environmental allergy, 07/29/16) Lyrica (Verified Allergy, Intermediate, rash, 07/29/16) Molds and Smuts (Verified Allergy, Intermediate, environmental , 07/29/16) Prednisone (Verified Allergy, Intermediate, rash, 07/29/16) Penicillin (Verified Allergy, Mild, itching, 07/29/16) Sulfa (Verified Allergy, Mild, oral sores, 07/29/16) Gabapentin (Verified Adverse Reaction, Mild, falls, 07/29/16) Reported Meds & Prescriptions Reported Meds & Active Scripts Active Valium (Diazepam) 5 Mg Tab 5 Mg PO TID PRN Bedside Commode (Device) 1 Mis Mis 1 Ea .ROUTE DIRECTED CPM-Continuous Passive Motion Machine 1 Ea Device 1 Ea .ROUTE DIRECTED start pod #1 0-50 degrees, increase each day by 10 degrees until 100 is reached Walker with Front Wheels (Device) 1 Mis Mis 1 Ea .ROUTE DIRECTED Reported [place] (Hydrocodone-Acetaminophen) 10-325 Mg Tab 1-2 Tab PO Q6H PRN Flexeril (Cyclobenzaprine HCl) 10 Mg Tab 10 Mg PO TID Tizanidine (Tizanidine HCl) 4 Mg Tab 4 Mg PO TID Effexor (Venlafaxine HCl) 75 Mg Tab 75 Mg PO HS Lortab (Hydrocodone-Acetaminophen) 10-325 Mg Tab 1 Tab PO Q8HR PRN K-Tab (Potassium Chloride) 10 Meq Tab 10 Meq PO BID Amlodipine (Amlodipine Besylate) 5 Mg Tab 5 Mg PO DAILY Ropinirole 2 Mg Tab 4 Mg PO HS Mirapex (Pramipexole Dihydrochloride) 0.25 Mg Tab 1.5 Mg PO HS Lisinopril 40 Mg Tab 40 Mg PO DAILY Effexor XR 24 HR (Venlafaxine HCl) 150 Mg Cap 150 Mg PO DAILYAC Bupropion HCl ER 12 HR (Bupropion HCl) 150 Mg Tab 150 Mg PO HS Review of Systems Except as stated in HPI: all other systems reviewed are Neg Physical Exam Narrative GENERAL: This is a well-nourished, well-developed patient, in no apparent distress. SKIN: No rashes, ecchymoses or lesions. Warm and dry. HEAD: Atraumatic. Normocephalic. EYES: PERRL, EOMI, no discharge or injection. No scleral icterus. EARS: Clear NOSE: Nasal turbinates appear normal. THROAT: Mucosa pink and moist. Airway patent. NECK: Trachea midline. supple, moves head freely. LUNGS: Clear to auscultation. CV: Regular in rhythm. ABDOMEN: Soft nontender. EXT: The right leg reveals postsurgical changes over the knee. [place] have been removed. The skin appears to be healing well. She has normal plus one postoperative edema from the knee down into the ankle and foot. She has no pain on palpation of the foot, ankle, calf. She does have some mild discomfort in the knee. There is no erythema or warmth. Patient does complain of pain in the inner right thigh up into the right groin. She has pain with movement of the hip with she states that spasm. She has good dorsalis pedis pulses. She has intact sensation. The left leg and upper extremities are unremarkable for acute pain or deformity. Back: No palpable tenderness. No gross spasm. Data Data Last Documented VS Vital Signs Date Time Temp Pulse Resp B/P Pulse Ox O2 Delivery O2 Flow Rate FiO2 07/29/16 06:13 89 14 144/66 99 Room Air 07/29/16 03:03 98.4 Orders Complete Blood Count With Diff (07/29/16 02:42) Comprehensive Metabolic Panel (07/29/16 02:42) Prothrombin Time / Inr (Pt) (07/29/16 02:42) Act Partial Throm Time (Ptt) (07/29/16 02:42) Urinalysis - C+S If Indicated (07/29/16 02:42) Iv Access Insert/Monitor (07/29/16 02:42) Us Leg Venous Doppler (07/29/16 02:42) Lorazepam Inj (Ativan Inj) (07/29/16 05:15) Lorazepam Inj (Ativan Inj) (07/29/16 06:15) Haloperidol Inj (Haldol Inj) (07/29/16 06:30) Labs Laboratory Tests Test 07/29/16 07/29/16 03:12 03:16 Urine Color LIGHT-YELLOW Urine Turbidity CLEAR Urine pH 5.0 Urine Specific [place] 1.006 Urine Protein NEG mg/dL Urine Glucose (UA) NEG mg/dL Urine Ketones NEG mg/dL Urine Occult Blood NEG Urine Nitrite NEG Urine Bilirubin NEG Urine Urobilinogen LESS THAN 2.0 MG/DL Urine Leukocyte Esterase NEG Urine RBC LESS THAN 1 /hpf Urine WBC 2 /hpf Urine Squamous Epithelial 1 /hpf Cells Urine Transitional Epithelial <1 /hpf Cells Urine Mucus FEW /lpf Microscopic Urinalysis Comment CULT NOT INDICATED White Blood Count 5.7 TH/MM3 Red Blood Count 3.76 MIL/MM3 Hemoglobin 10.7 GM/DL Hematocrit 32.3 % Mean Corpuscular Volume 86.0 FL Mean Corpuscular Hemoglobin 28.4 PG Mean Corpuscular Hemoglobin 33.0 % Concent Red Cell Distribution Width 15.1 % Platelet Count 226 TH/MM3 Mean Platelet Volume 6.9 FL Neutrophils (%) (Auto) 67.5 % Lymphocytes (%) (Auto) 21.6 % Monocytes (%) (Auto) 6.2 % Eosinophils (%) (Auto) 3.8 % Basophils (%) (Auto) 0.9 % Neutrophils # (Auto) 3.8 TH/MM3 Lymphocytes # (Auto) 1.2 TH/MM3 Monocytes # (Auto) 0.4 TH/MM3 Eosinophils # (Auto) 0.2 TH/MM3 Basophils # (Auto) 0.1 TH/MM3 CBC Comment DIFF FINAL Differential Comment Prothrombin Time 18.2 SEC Prothromb Time International 1.6 RATIO Ratio Activated Partial 33.9 SEC Thromboplast Time Sodium Level 140 MEQ/L Potassium Level 4.5 MEQ/L Chloride Level 105 MEQ/L Carbon Dioxide Level 26.9 MEQ/L Anion Gap 8 MEQ/L Blood Urea Nitrogen 23 MG/DL Creatinine 1.00 MG/DL Estimat Glomerular Filtration 55 ML/MIN Rate Random Glucose 95 MG/DL Calcium Level 9.0 MG/DL Total Bilirubin 0.3 MG/DL Aspartate Amino Transf 34 U/L (AST/SGOT) Alanine Aminotransferase 50 U/L (ALT/SGPT) Alkaline Phosphatase 148 U/L Total Protein 7.0 GM/DL Albumin 3.4 GM/DL MDM Medical Decision Making Medical Screen Exam Complete: Yes Emergency Medical Condition: Yes Medical Record Reviewed: Yes Interpretation(s) Laboratory Tests Test 07/29/16 07/29/16 03:12 03:16 Urine Color LIGHT-YELLOW Urine Turbidity CLEAR Urine pH 5.0 Urine Specific [place] 1.006 Urine Protein NEG mg/dL Urine Glucose (UA) NEG mg/dL Urine Ketones NEG mg/dL Urine Occult Blood NEG Urine Nitrite NEG Urine Bilirubin NEG Urine Urobilinogen LESS THAN 2.0 MG/DL Urine Leukocyte Esterase NEG Urine RBC LESS THAN 1 /hpf Urine WBC 2 /hpf Urine Squamous Epithelial 1 /hpf Cells Urine Transitional Epithelial <1 /hpf Cells Urine Mucus FEW /lpf Microscopic Urinalysis Comment CULT NOT INDICATED White Blood Count 5.7 TH/MM3 Red Blood Count 3.76 MIL/MM3 Hemoglobin 10.7 GM/DL Hematocrit 32.3 % Mean Corpuscular Volume 86.0 FL Mean Corpuscular Hemoglobin 28.4 PG Mean Corpuscular Hemoglobin 33.0 % Concent Red Cell Distribution Width 15.1 % Platelet Count 226 TH/MM3 Mean Platelet Volume 6.9 FL Neutrophils (%) (Auto) 67.5 % Lymphocytes (%) (Auto) 21.6 % Monocytes (%) (Auto) 6.2 % Eosinophils (%) (Auto) 3.8 % Basophils (%) (Auto) 0.9 % Neutrophils # (Auto) 3.8 TH/MM3 Lymphocytes # (Auto) 1.2 TH/MM3 Monocytes # (Auto) 0.4 TH/MM3 Eosinophils # (Auto) 0.2 TH/MM3 Basophils # (Auto) 0.1 TH/MM3 CBC Comment DIFF FINAL Differential Comment Prothrombin Time 18.2 SEC Prothromb Time International 1.6 RATIO Ratio Activated Partial 33.9 SEC Thromboplast Time Sodium Level 140 MEQ/L Potassium Level 4.5 MEQ/L Chloride Level 105 MEQ/L Carbon Dioxide Level 26.9 MEQ/L Anion Gap 8 MEQ/L Blood Urea Nitrogen 23 MG/DL Creatinine 1.00 MG/DL Estimat Glomerular Filtration 55 ML/MIN Rate Random Glucose 95 MG/DL Calcium Level 9.0 MG/DL Total Bilirubin 0.3 MG/DL Aspartate Amino Transf 34 U/L (AST/SGOT) Alanine Aminotransferase 50 U/L (ALT/SGPT) Alkaline Phosphatase 148 U/L Total Protein 7.0 GM/DL Albumin 3.4 GM/DL Last 24 hours Impressions Lower Extremity Ultrasound 07/29/16 0242 Signed Impressions: Service Date/Time: Friday, July 29, 2016 03:21 - CONCLUSION: No evidence of right leg DVT. 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 Bryan Fabian MD Differential Diagnosis Differential diagnoses: DVT, lumbar radiculopathy, spasm, restless leg syndrome , fibromyalgia Narrative Course Patient's ultrasound is negative for DVT. Her urine and electrolytes are negative. I suspect the patient is truly having spasms in the groin area I recommended that the patient take Valium 5 mg 3 times daily and decrease her opiates. She'll be sent back to the nursing facility. The patient is given Ativan 1 mg IV. This is repeated a second time for a total 2 mg of Ativan. The patient still complains of intermittent spasm and pain. She is given an additional 4 mg of Haldol IV. This is right groin spasms Diagnosis Primary Impression: right groin spasm Patient Instructions: General Instructions Additional Instructions: Rest. Decrease Dilaudid use. Valium for spasm. Follow-up with your doctor tomorrow for recheck. Return to the ER for emergencies. Med/Other Pt SpecificInfo: Prescription(s) given Scripts Diazepam (Valium)5 Mg Tab5 Mg PO TID PRN (SPASM) #21 TAB Ref 0 Prov:Charlee Hess MD 07/29/16 Disposition: 01 DISCHARGE HOME Condition: Stable Sanjiv Vazquez Jul 29, 2016 03:31
[2016-07-29 03:36] LABS: BLOOD, URINE NEG (NEG); GLUCOSE,URINE NEG (NEG); KETONE, URINE NEG (NEG); MUCUS URINE FEW /lpf (OCC); NITRITE,URINE NEG (NEG); SQUAMOUS EPITHELIAL CELL URINE 1 /hpf (0-5); TRANSITIONAL EPI CELLS, URINE <1 /hpf; URINE COLOR LIGHT-YELLOW (YELLW/STRAW)
[2016-07-29 03:37] LABS: COMMENT (UR) CULT NOT INDICATED; CULTURE IF INDICATED CULT NOT INDICATED
[2016-07-29 03:37] LABS: AUTOMATED NEUTROPHIL # 3.8 TH/MM3 (1.8-7.7); BASOPHIL # 0.1 TH/MM3 (0-0.2); BASOPHIL % 0.9 % (0.0-2.0); EOSINOPHIL # 0.2 TH/MM3 (0-0.4); EOSINOPHIL % 3.8 % (0.0-4.0); HEMATOCRIT 32.3 % (35.0-46.0); HEMO FLAGS DIFF FINAL; LYMPH % 21.6 % (9.0-44.0); LYMPHOCYTE # 1.2 TH/MM3 (1.0-4.8); MEAN CORPUSCULAR HEMOGLOBIN 28.4 PG (27.0-34.0); MONO % 6.2 % (0.0-8.0); NEUT % 67.5 % (16.0-70.0); PLATELET COUNT 226 TH/MM3 (150-450); RED BLOOD COUNT 3.76 MIL/MM3 (4.00-5.30); RED CELL DISTRIBUTION WIDTH 15.1 % (11.6-17.2); WHITE BLOOD COUNT 5.7 TH/MM3 (4.0-11.0)
[2016-07-29 03:44] LABS: APTT (PATIENT) 33.9 SEC (24.3-30.1); INTERNATIONAL NORMALIZED RATIO 1.6 RATIO; PROTHROMBIN TIME - PATIENT 18.2 SEC (9.8-11.6)
[2016-07-29 03:52] LABS: ALT (GPT) 50 U/L (10-53); ANION GAP 8 MEQ/L (5-15); AST (GOT) 34 U/L (15-37); BICARBONATE 26.9 MEQ/L (21.0-32.0); BLOOD UREA NITROGEN 23 MG/DL (7-18); CHLORIDE 105 MEQ/L (98-107); GLOMERULAR FILTRATION RATE 55 ML/MIN (>89); POTASSIUM 4.5 MEQ/L (3.5-5.1); SODIUM (NA) 140 MEQ/L (136-145)
[2016-07-29 03:55] LABS: ALKALINE PHOSPHATASE 148 U/L (45-117); TOTAL BILIRUBIN ADULT 0.3 MG/DL (0.2-1.0)
--- NOTE | 2016-07-29 03:59 | RADRPT ---
EXAM DATE/TIME: 07/29/2016 03:21 [facility] COMPARISON: No previous studies available for comparison. INDICATIONS : Right leg pain and swelling. Post total knee replacement 07/11/16. MEDICAL HISTORY : Hypertension. SURGICAL HISTORY : Total knee replacement, right. ENCOUNTER: Initial ACUITY: 3 weeks PAIN SCORE: 7/10 LOCATION: Right leg. TECHNIQUE: Venous ultrasound of the leg was performed from the inguinal ligament to the proximal calf. Real-marquita e, color Doppler and spectral tracing, compression and augmentation techniques were used. FINDINGS: There is normal compressibility of the deep venous system from the inguinal region to the proximal ca lf. No echogenic clot is seen in the lumen of the common femoral, femoral, popliteal, and posterior tibial veins. There is a normal response of the venous system to proximal and distal augmentation an d respiration. In the medial right popliteal space, an elongated complex hypoechoic mass/collection is present measu ring 3.5 cm in length which is likely a Montejo's cyst. CONCLUSION: No evidence of right leg DVT. 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 Bryan Fabian MD on July 29, 2016 at 3:56 Board Certified Radiologist. This report was verified electronically.
[2016-07-29] MEDS ORDERED: DIAZ5 PO (04:08)
[2016-07-29] MEDS ORDERED: LORazepam 2 MG/ML VIAL IV PUSH ONE ×2 (05:15→06:15)
[2016-07-29 06:13] VITALS: BP 144/66; PULSE 89; RESP 14; O2SAT 99
[2016-07-29] MEDS ORDERED: HALOPERIDOL LACTATE 5 MG/ML AMP IM ONE (06:30)
[2016-07-29] MEDS ORDERED: LORazepam 2 MG/ML VIAL IM ONE (08:15)
[2016-07-29 08:25] VITALS: BP 138/72; TEMP 98.2
== END 2016-07-29 08:27 | disposition home or self-care (01) ==
LOC: NEPB 02:22
DX: R25.2 Cramp and spasm (principal); M79.604 Pain in right leg; I10 Essential (primary) hypertension; Z87.39 Personal history of other diseases of the musculoskeletal system and connective tissue; Z86.2 Personal history of diseases of the blood and blood-forming organs and certain disorders involving the immune mechanism; Z87.09 Personal history of other diseases of the respiratory system; Z86.59 Personal history of other mental and behavioral disorders; Z86.79 Personal history of other diseases of the circulatory system; Z86.69 Personal history of other diseases of the nervous system and sense organs
CPT/HCPCS: 80053; 81001; 85025; 85610; 85730; 93971; 96372; 96374; 96376; 99284; J1630; J2060

== ENCOUNTER 2017-01-09 13:08 | Observation (INO) | payer OTHER ==
[~2017-01-09] VITALS: Ht 152.4 cm; Wt 81.8 kg
[~2017-01-09 13:08] MED LIST changes: +DIAZ5 PO
[2017-01-09 13:18] VITALS: BP 168/75; PULSE 83; RESP 16; TEMP 98.1; O2SAT 96
[2017-01-09] MEDS ORDERED: QUET5TAB PO (13:45)
[2017-01-09] MEDS ORDERED: SODIUM CHLORIDE 0.9% FLUSH 5 ML FLUSH IV FLUSH PRN (13:45)
[2017-01-09] MEDS ORDERED: HYDR200T3 PO (13:45)
[2017-01-09] MEDS ORDERED: FURO80TA PO (13:45)
[2017-01-09] MEDS ORDERED: BUPR150T12 PO (13:45)
[2017-01-09] MEDS ORDERED: BACL10TA PO (13:45)
[2017-01-09] MEDS ORDERED: HYDR1CAP30 PO (13:45)
[2017-01-09] MEDS ORDERED: LATA0.002 EACH EYE (13:46)
--- NOTE | 2017-01-09 14:15 | PD ---
HPI Chief Complaint: OD/ Ingestion Time Seen by Provider: 13:31 Travel History International Travel<30 days: No Contact w/Intl Traveler<30days: No Traveled to known affect area: No History of Present Illness HPI Patient is 66 years old and arrives with her . She believes she may have accidentally ingested too many of her medications last night. At the time of ER evaluation she complains of feeling drunk, generally weak and forgetful. Her states the patient has not taken any new medication today. Medications include Seroquel, hydroxyzine, baclofen, bupropion, tizanidine, Effexor and ropinirole. She believes one of them may be new since yesterday. She also mentions having potentially ingested morphine. She denies any drug or alcohol abuse. Any ingestion unintentional. PFSH Past Medical History Hx Anticoagulant Therapy: No Arthritis: Yes (RHEUMATOID) Asthma: Yes Autoimmune Disease: Yes Blood Disorders: No Anxiety: Yes Depression: Yes Cancer: No Cardiovascular Problems: Yes (htn takes no meds) COPD: Yes Diabetes: No Diminished Hearing: No Endocrine: No Fibromyalgia: Yes Gastrointestinal Disorders: No Gout: Yes Genitourinary: No Headaches: Yes Hypertension: Yes Immune Disorder: Yes (lupus) Implanted Vascular Access Dvce: No Musculoskeletal: Yes (BILATERAL PLANTAR FASCITIS) Neurologic: Yes Psychiatric: Yes (INPATIENT FOR NERVOUS BREAKDOWN 1969-) Reproductive: No Respiratory: Yes (asthma) Immunizations Current: Yes Migraines: Yes Seizures: No Tetanus Vaccination: < 5 Years Influenza Vaccination: Yes ?: Not Menopausal: Yes Past Surgical History Oral Surgery: Yes Other Surgery: Yes (HEMORRHOIDECTOMY) Social History Alcohol Use: No Tobacco Use: No Substance Use: No Allergies-Medications (Allergen,Severity, Reaction): Coded Allergies: Keflex (Verified Allergy, Severe, ANAPHYLAXIS, 01/09/17) Cat Dander (Verified Allergy, Intermediate, rhinitis, 01/09/17) Cultivated Oat Pollen (Verified Allergy, Intermediate, "Pollen Allergy" per patient report, 01/09/17) Dust (Verified Allergy, Intermediate, environmental allergy, 01/09/17) Lyrica (Verified Allergy, Intermediate, rash, 01/09/17) Molds and Smuts (Verified Allergy, Intermediate, environmental , 01/09/17) Prednisone (Verified Allergy, Intermediate, rash, 01/09/17) Penicillin (Verified Allergy, Mild, itching, 01/09/17) Sulfa (Verified Allergy, Mild, oral sores, 01/09/17) Gabapentin (Verified Adverse Reaction, Mild, falls, 01/09/17) Reported Meds & Prescriptions Reported Meds & Active Scripts Active Reported Latanoprost Opth Drops (Latanoprost) 0.005% Drops 1 Drop EACH EYE HS Refrigerate until opened. Hydroxychloroquine (Hydroxychloroquine Sulfate) 200 Mg Tab 200 Mg PO DAILY Takw with food Quetiapine (Quetiapine Fumarate) 50 Mg Tab 50 Mg PO HS Furosemide 80 Mg Tab 80 Mg PO DAILY Hydroxyzine Pamoate 25 Mg Cap 25 Mg PO TID PRN Baclofen 10 Mg Tab 10 Mg PO TID Bupropion Sr 12 HR (Bupropion ER 12 HR (Smoking Deterrent)) 150 Mg Tab 150 Mg PO HS Take 1 tablet daily x 3 days then twice daily thereafter. Tizanidine (Tizanidine HCl) 4 Mg Tab 4 Mg PO BID PRN Effexor (Venlafaxine HCl) 75 Mg Tab 75 Mg PO TID K-Tab (Potassium Chloride) 10 Meq Tab 10 Meq PO BID Ropinirole 2 Mg Tab 4 Mg PO BID Lisinopril 40 Mg Tab 40 Mg PO DAILY Review of Systems ROS Limitations: Clinical Condition, Altered Mental Status Physical Exam Narrative GENERAL: 66-year-old female well-nourished well-developed no acute distress SKIN: Warm and dry. HEAD: Atraumatic. Normocephalic. EYES: Pupils equal and round. No scleral icterus. No injection or drainage. ENT: No nasal bleeding or discharge. Mucous membranes pink and moist. NECK: Trachea midline. No JVD. CARDIOVASCULAR: Regular rate and rhythm. RESPIRATORY: No accessory muscle use. Clear to auscultation. Breath sounds equal bilaterally. GASTROINTESTINAL: Abdomen soft, non-tender, nondistended. Hepatic and splenic margins not palpable. MUSCULOSKELETAL: Extremities without clubbing, cyanosis, or edema. No obvious deformities. NEUROLOGICAL: Awake and alert. Answers questions. Cranial nerves III through XII are normal. Moves all extremities normally. PSYCHIATRIC: Appropriate mood and affect; insight and judgment normal. Data Data Last Documented VS Vital Signs Date Time Temp Pulse Resp B/P Pulse Ox O2 Delivery O2 Flow Rate FiO2 01/09/17 14:25 96 Room Air 01/09/17 14:20 71 14 156/74 01/09/17 13:18 98.1 Orders Complete Blood Count With Diff (01/09/17 13:45) Comprehensive Metabolic Panel (01/09/17 13:45) Thyroid Stimulating Hormone (01/09/17 13:45) Ct Brain W/O Iv Contrast(Rout) (01/09/17 13:45) Blood Glucose (01/09/17 13:45) Ecg Monitoring (01/09/17 13:45) Iv Access Insert/Monitor (01/09/17 13:45) Oximetry (01/09/17 13:45) Sodium Chloride 0.9% Flush (Ns Flush) (01/09/17 13:45) Drug Screen, Random Urine (01/09/17 13:45) Alcohol (Ethanol) (01/09/17 13:45) Tylenol (Acetaminophen) (01/09/17 13:45) Urinalysis - C+S If Indicated (01/09/17 14:32) Cath For Specimen (01/09/17 14:58) Labs Laboratory Tests Test 01/09/17 01/09/17 14:25 15:10 White Blood Count 4.5 TH/MM3 Red Blood Count 4.08 MIL/MM3 Hemoglobin 12.0 GM/DL Hematocrit 35.1 % Mean Corpuscular Volume 86.1 FL Mean Corpuscular Hemoglobin 29.3 PG Mean Corpuscular Hemoglobin 34.1 % Concent Red Cell Distribution Width 13.7 % Platelet Count 158 TH/MM3 Mean Platelet Volume 7.6 FL Neutrophils (%) (Auto) 76.6 % Lymphocytes (%) (Auto) 16.0 % Monocytes (%) (Auto) 5.4 % Eosinophils (%) (Auto) 1.2 % Basophils (%) (Auto) 0.8 % Neutrophils # (Auto) 3.5 TH/MM3 Lymphocytes # (Auto) 0.7 TH/MM3 Monocytes # (Auto) 0.2 TH/MM3 Eosinophils # (Auto) 0.1 TH/MM3 Basophils # (Auto) 0.0 TH/MM3 CBC Comment DIFF FINAL Differential Comment Sodium Level 140 MEQ/L Potassium Level 4.6 MEQ/L Chloride Level 110 MEQ/L Carbon Dioxide Level 21.0 MEQ/L Anion Gap 9 MEQ/L Blood Urea Nitrogen 72 MG/DL Creatinine 2.00 MG/DL Estimat Glomerular Filtration 25 ML/MIN Rate Random Glucose 104 MG/DL Calcium Level 9.0 MG/DL Total Bilirubin 0.2 MG/DL Aspartate Amino Transf 21 U/L (AST/SGOT) Alanine Aminotransferase 24 U/L (ALT/SGPT) Alkaline Phosphatase 125 U/L Total Protein 7.5 GM/DL Albumin 3.8 GM/DL Thyroid Stimulating Hormone 1.990 uIU/ML 3rd Gen Ethyl Alcohol Level LESS THAN 3 MG/DL Urine Collection Type CATH Urine Color YELLOW Urine Turbidity CLEAR Urine pH 5.5 Urine Specific [place] 1.017 Urine Protein NEG mg/dL Urine Glucose (UA) NEG mg/dL Urine Ketones NEG mg/dL Urine Occult Blood NEG Urine Nitrite NEG Urine Bilirubin NEG Urine Leukocyte Esterase NEG Urine Squamous Epithelial /hpf Cells Urine Amorphous Sediment FEW Microscopic Urinalysis Comment CULT NOT INDICATED Urine Opiates Screen POS Urine Barbiturates Screen NEG Urine Amphetamines Screen NEG Urine Benzodiazepines Screen NEG Urine Cocaine Screen NEG Urine Cannabinoids Screen NEG MDM Medical Decision Making Medical Screen Exam Complete: Yes Emergency Medical Condition: Yes Medical Record Reviewed: Yes Differential Diagnosis Polypharmacy, dehydration, anemia, infection, electrolyte imbalance, renal failure Narrative Course CBC & BMP Diagram 01/09/17 14:25 LFTs normal Lipase normal Urine drug screen positive for opiates Alcohol < 3 Urinalysis reveals no UTI 5 months ago the most recent BUN/creatinine ratio we have on record is 23/1.0. Today it is 72/2.0. I spoke with the patient regarding cessation of furosemide and increased oral hydration however the patient is unable to differentiate between lisinopril and Lasix and was unable to repeat the plan with me. She is to see her new physician in 10 days time. The patient's was also present at the time of discussion and was unable to understand discharge instructions. The case was discussed with Dr Paz for [facility] at 1556; pt will be kept as obs. Diagnosis Primary Impression: Polypharmacy Additional Impressions: MARIA LUISA (acute kidney injury) Dehydration Altered mental status Qualified Code: R41.82 - Altered mental status, unspecified altered mental status type Admitting Information Admitting Physician Requests: Observation Torito Singh MD Jan 09, 2017 14:15
[2017-01-09 14:20] VITALS: BP 156/74; PULSE 71; RESP 14; O2SAT 96
--- NOTE | 2017-01-09 14:24 | RADRPT ---
EXAM DATE/TIME: 01/09/2017 14:13 [facility] COMPARISON: CT BRAIN W/O CONTRAST, May 26, 2016, 15:25. INDICATIONS : Altered mental status. RADIATION DOSE: 57.87 CTDIvol (mGy) MEDICAL HISTORY : Hypertension. Lupus. SURGICAL HISTORY : None. ENCOUNTER: Initial ACUITY: 1 day PAIN SCALE: 0/10 LOCATION: cranial TECHNIQUE: Multiple contiguous axial images were obtained of the head. Using automated exposure control and adj ustment of the mA and/or kV according to patient size, radiation dose was kept as low as reasonably a chievable to obtain optimal diagnostic quality images. DICOM format image data is available electro nically for review and comparison. FINDINGS: CEREBRUM: The ventricles are normal for age. No evidence of midline shift, mass lesion, hemorrhage or acute in farction. No extra-axial fluid collections are seen. POSTERIOR FOSSA: The cerebellum and brainstem are intact. The 4th ventricle is midline. The cerebellopontine angle i s unremarkable. EXTRACRANIAL: The visualized portion of the orbits is intact. SKULL: The calvaria is intact. No evidence of skull fracture. CONCLUSION: Negative for an acute process. Kerwin Huang MD FACR on January 09, 2017 at 14:22 Board Certified Radiologist. This report was verified electronically.
[2017-01-09 14:25] VITALS: O2SAT 96
[2017-01-09 14:41] LABS: AUTOMATED NEUTROPHIL # 3.5 TH/MM3 (1.8-7.7); BASOPHIL % 0.8 % (0.0-2.0); EOSINOPHIL # 0.1 TH/MM3 (0-0.4); EOSINOPHIL % 1.2 % (0.0-4.0); HEMATOCRIT 35.1 % (35.0-46.0); HEMO FLAGS DIFF FINAL; LYMPHOCYTE # 0.7 TH/MM3 (1.0-4.8); MEAN CELL VOLUME 86.1 FL (80.0-100.0); MEAN CORPUSCULAR HEMOGLOBIN 29.3 PG (27.0-34.0); MEAN CORPUSCULAR HGB CONC 34.1 % (32.0-36.0); MONO % 5.4 % (0.0-8.0); NEUT % 76.6 % (16.0-70.0); PLATELET COUNT 158 TH/MM3 (150-450); RED BLOOD COUNT 4.08 MIL/MM3 (4.00-5.30); RED CELL DISTRIBUTION WIDTH 13.7 % (11.6-17.2); WHITE BLOOD COUNT 4.5 TH/MM3 (4.0-11.0)
[2017-01-09 14:50] LABS: CHLORIDE 110 MEQ/L (98-107); POTASSIUM 4.6 MEQ/L (3.5-5.1); SODIUM (NA) 140 MEQ/L (136-145)
[2017-01-09 14:53] LABS: ANION GAP 9 MEQ/L (5-15); BLOOD UREA NITROGEN 72 MG/DL (7-18)
[2017-01-09 14:56] LABS: ALCOHOL LESS THAN 3 MG/DL (0-5); ALT (GPT) 24 U/L (10-53); AST (GOT) 21 U/L (15-37); GLOMERULAR FILTRATION RATE 25 ML/MIN (>89)
[2017-01-09 14:58] LABS: TOTAL BILIRUBIN ADULT 0.2 MG/DL (0.2-1.0)
[2017-01-09 14:59] LABS: ALKALINE PHOSPHATASE 125 U/L (45-117)
[2017-01-09 15:18] LABS: BLOOD, URINE NEG (NEG); GLUCOSE,URINE NEG (NEG); KETONE, URINE NEG (NEG); NITRITE,URINE NEG (NEG); PH, URINE 5.5 (5.0-8.5)
[2017-01-09 15:25] LABS: METHOD OF COLLECTION CATH; URINE COLOR YELLOW (YELLW/STRAW)
[2017-01-09 15:26] LABS: COMMENT (UR) CULT NOT INDICATED; CULTURE IF INDICATED CULT NOT INDICATED
[2017-01-09] MEDS ORDERED: ACETAMINOPHEN 325 MG TAB PO PRN ×2 (16:00)
[2017-01-09] MEDS ORDERED: NALOXONE HCL 0.4 MG/ML AMP IV PRN (16:00)
[2017-01-09] MEDS ORDERED: RESP: ALBUTEROL 2.5 MG/IPRATROPIUM 0.5 MG NEB (PRN) NEB ×2 (16:00→17:45)
[2017-01-09] MEDS ORDERED: ONDANSETRON HCL 4 MG/2 ML VIAL IVP PRN (16:00)
[2017-01-09] MEDS ORDERED: SODIUM CHLORIDE 0.9% FLUSH 10 ML FLUSH IV FLUSH PRN (16:00)
[2017-01-09 16:31] LABS: ACETAMINOPHEN LESS THAN 2.0 MCG/ML (10.0-30.0)
[2017-01-09] MEDS: SODIUM CHLOR 0.9% 1000 ML INJ 1,000 ML IV SCH ×2 (16:35→19:43)
--- NOTE | 2017-01-09 17:31 | RADRPT ---
EXAM DATE/TIME: 01/09/2017 16:37 [facility] COMPARISON: US LEG RIGHT VENOUS DOPPLER, July 29, 2016, 3:21. INDICATIONS : Increased BUN and creatinine. MEDICAL HISTORY : Hypertension. Arthritis. Rheumatoid arthritis. Migraines. Asthma. COPD. Plantar fasciitis. Gout. Anxi ety. Depression. Lupus. SURGICAL HISTORY : Total knee replacement, right. Hemorroidectomy. ENCOUNTER: Initial ACUITY: 1 day PAIN SCORE: 0/10 LOCATION: Bilateral flank MEASUREMENTS: RIGHT KIDNEY: 9.6 x 3.7 x 5.1 cm LEFT KIDNEY: 10.3 x 3.8 x 5.0 cm FINDINGS: RIGHT KIDNEY: Renal cortex is normal in thickness and echotexture. No hydronephrosis, stone, or mass. LEFT KIDNEY: Renal cortex is normal in thickness and echotexture. No hydronephrosis, stone, or mass. BLADDER: Within normal limits given the degree of distension. CONCLUSION: 1. The examination is within normal limits. Torito Huang MD on January 09, 2017 at 17:23 Board Certified Radiologist. This report was verified electronically.
--- NOTE | 2017-01-09 17:32 | HHI.HP ---
HPI Service [facility] Primary Care Physician No Primary Care Physician Admission Diagnosis ALTERED MENTAL STATUS, ACUTE KIDNEY INJURY Diagnoses: (1) Encephalopathy, toxic (2) MARIA LUISA (acute kidney injury) (3) Polypharmacy (4) Benign hypertension Chief Complaint: Altered mental status change Travel History International Travel<30 Days: No Contact w/Intl Traveler <30 Da: No Traveled to Known Affected Are: No History of Present Illness 66 year-old female for history of hypertension, rheumatoid arthritis, anxiety, RLS was brought to the ED via private vehicle for evaluation of an acute onset of altered mental status change noticed this morning. Patient describes a feeling of weakness, generalized weakness and forgetfulness. She states last night she may have ingested accidentally too many of her medicines. UDS on admission was positive for opioid. She is currently taking Seroquel, hydroxyzine, baclofen, bupropion, tizanidine, Effexor and ropinirole. Abnormal labs include BUN/reactive 72/2.0 and patient is currently on lisinopril for hypertension. During my exam, she was alert and oriented to self and place but not date and appears to be forgetful. She denies any GI bleed or chest pain. Review of Systems Except as stated in HPI: all other systems reviewed are Neg Past Family Social History Past Medical History Hypertension COPD RA RLS Anxiety/depression Past Surgical History Right total knee replacement Hemorrhoidectomy Reported Medications Latanoprost Opth Drops (Latanoprost) 0.005% Drops 1 Drop EACH EYE HS Refrigerate until opened. Hydroxychloroquine (Hydroxychloroquine Sulfate) 200 Mg Tab 200 Mg PO DAILY Takw with food Quetiapine (Quetiapine Fumarate) 50 Mg Tab 50 Mg PO HS Furosemide 80 Mg Tab 80 Mg PO DAILY Hydroxyzine Pamoate 25 Mg Cap 25 Mg PO TID PRN Baclofen 10 Mg Tab 10 Mg PO TID Bupropion Sr 12 HR (Bupropion ER 12 HR (Smoking Deterrent)) 150 Mg Tab 150 Mg PO HS Take 1 tablet daily x 3 days then twice daily thereafter. Tizanidine (Tizanidine HCl) 4 Mg Tab 4 Mg PO BID PRN Effexor (Venlafaxine HCl) 75 Mg Tab 75 Mg PO TID K-Tab (Potassium Chloride) 10 Meq Tab 10 Meq PO BID Ropinirole 2 Mg Tab 4 Mg PO BID Lisinopril 40 Mg Tab 40 Mg PO DAILY Allergies: Coded Allergies: Keflex (Verified Allergy, Severe, ANAPHYLAXIS, 01/09/17) Cat Dander (Verified Allergy, Intermediate, rhinitis, 01/09/17) Cultivated Oat Pollen (Verified Allergy, Intermediate, "Pollen Allergy" per patient report, 01/09/17) Dust (Verified Allergy, Intermediate, environmental allergy, 01/09/17) Lyrica (Verified Allergy, Intermediate, rash, 01/09/17) Molds and Smuts (Verified Allergy, Intermediate, environmental , 01/09/17) Prednisone (Verified Allergy, Intermediate, rash, 01/09/17) Penicillin (Verified Allergy, Mild, itching, 01/09/17) Sulfa (Verified Allergy, Mild, oral sores, 01/09/17) Gabapentin (Verified Adverse Reaction, Mild, falls, 01/09/17) Family History Denies any family history of hypertension, diabetes or CAD Social History There is no report of tobacco, alcohol or illicit drug intake Physical Exam Vital Signs Vital Signs Date Time Temp Pulse Resp B/P Pulse Ox O2 Delivery O2 Flow Rate FiO2 01/09/17 14:25 96 Room Air 01/09/17 14:20 71 14 156/74 96 Room Air 01/09/17 13:18 98.1 83 16 168/75 96 Physical Exam GENERAL: This is a well-nourished, well-developed patient, in no apparent distress. SKIN: No rashes, ecchymoses or lesions. Cool and dry. HEAD: Atraumatic. Normocephalic. No temporal or scalp tenderness. EYES: Pupils equal round and reactive. Extraocular motions intact. No scleral icterus. No injection or drainage. ENT: Nose without bleeding, purulent drainage or septal hematoma. Throat without erythema, tonsillar hypertrophy or exudate. Uvula midline. Airway patent. NECK: Trachea midline. No JVD or lymphadenopathy. Supple, nontender, no meningeal signs. CARDIOVASCULAR: Regular rate and rhythm without murmurs, gallops, or rubs. RESPIRATORY: Clear to auscultation. Breath sounds equal bilaterally. No wheezes , rales, or rhonchi. GASTROINTESTINAL: Abdomen soft, non-tender, nondistended. No hepato-splenomegaly , or palpable masses. No guarding. MUSCULOSKELETAL: Extremities without clubbing, cyanosis, or edema. No joint tenderness, effusion, or edema noted. No calf tenderness. Negative Homans sign bilaterally. NEUROLOGICAL: Awake and alert. Cranial nerves II through XII intact. Motor and sensory grossly within normal limits. Five out of 5 muscle strength in all muscle groups. Some mild slurred speech Laboratory Laboratory Tests Test 01/09/17 01/09/17 14:25 15:10 White Blood Count 4.5 Red Blood Count 4.08 Hemoglobin 12.0 Hematocrit 35.1 Mean Corpuscular Volume 86.1 Mean Corpuscular Hemoglobin 29.3 Mean Corpuscular Hemoglobin 34.1 Concent Red Cell Distribution Width 13.7 Platelet Count 158 Mean Platelet Volume 7.6 Neutrophils (%) (Auto) 76.6 Lymphocytes (%) (Auto) 16.0 Monocytes (%) (Auto) 5.4 Eosinophils (%) (Auto) 1.2 Basophils (%) (Auto) 0.8 Neutrophils # (Auto) 3.5 Lymphocytes # (Auto) 0.7 Monocytes # (Auto) 0.2 Eosinophils # (Auto) 0.1 Basophils # (Auto) 0.0 CBC Comment DIFF FINAL Differential Comment Sodium Level 140 Potassium Level 4.6 Chloride Level 110 Carbon Dioxide Level 21.0 Anion Gap 9 Blood Urea Nitrogen 72 Creatinine 2.00 Estimat Glomerular Filtration 25 Rate Random Glucose 104 Calcium Level 9.0 Total Bilirubin 0.2 Aspartate Amino Transf 21 (AST/SGOT) Alanine Aminotransferase 24 (ALT/SGPT) Alkaline Phosphatase 125 Total Protein 7.5 Albumin 3.8 Thyroid Stimulating Hormone 1.990 3rd Gen Acetaminophen Level LESS THAN 2.0 Ethyl Alcohol Level LESS THAN 3 Urine Collection Type CATH Urine Color YELLOW Urine Turbidity CLEAR Urine pH 5.5 Urine Specific [place] 1.017 Urine Protein NEG Urine Glucose (UA) NEG Urine Ketones NEG Urine Occult Blood NEG Urine Nitrite NEG Urine Bilirubin NEG Urine Leukocyte Esterase NEG Urine Squamous Epithelial Cells Urine Amorphous Sediment FEW Microscopic Urinalysis Comment CULT NOT INDICATED Urine Opiates Screen POS Urine Barbiturates Screen NEG Urine Amphetamines Screen NEG Urine Benzodiazepines Screen NEG Urine Cocaine Screen NEG Urine Cannabinoids Screen NEG Result Diagram: 01/09/17 1425 01/09/17 1425 Imaging Last Impressions Head CT 01/09/17 1345 Signed Impressions: Service Date/Time: Monday, January 09, 2017 14:13 - CONCLUSION: Negative for an acute process. Kerwin Huang MD FACR Assessment and Plan Problem List: (1) Encephalopathy, toxic ICD Code: G92 Status: Acute (2) MARIA LUISA (acute kidney injury) ICD Code: N17.9 Status: Acute (3) Polypharmacy ICD Code: Z79.899 Status: Acute (4) Benign hypertension ICD Code: I10 Status: Acute Assessment and Plan 66-year-old female with Toxic encephalopathy Head noted and review by me and Negative for an acute process Secondary to medication side effect Hold all [employer] depressant medications Now resolved Acute renal failure Bun/Cr on admission 72/2.00 however was 23/1.00 (07/29/16) Start aggressive IV fluid hydration Avoid all nephrotoxic drugs Check renal complements including C3, C4 as well as ADITYA Check renal ultrasound Hypertension Hold Lisinopril Start Norvasc 5mg daily Hydralazine PRN RLS -Resume outpatient med DVT prophylaxis: B-SCDs Code Status Full code Discussed Condition With Patient, ED physician Physician Certification 2 Midnight Certification Type: Admission for Inpatient Services Order for Inpatient Services The services are ordered in accordance with Medicare regulations or non- Medicare payer requirements, as applicable. In the case of services not specified as inpatient-only, they are appropriately provided as inpatient services in accordance with the 2-midnight benchmark. Estimated LOS (days): 2 days is the estimated time the patient will need to remain in the hospital, assuming treatment plan goals are met and no additional complications. Post-Hospital Plan: Not yet determined Aldair Paz MD Jan 09, 2017 17:32
[2017-01-09] MEDS ORDERED: hydrALAZINE HCL 25 MG TAB PO PRN (17:45)
[2017-01-09 18:10] VITALS: BP 142/79; PULSE 83; RESP 18; TEMP 96.9; O2SAT 96
[2017-01-09 19:35] VITALS: O2SAT 98
[2017-01-09] MEDS: SODIUM CHLORIDE 0.9% FLUSH 10 ML FLUSH IV FLUSH SCH (19:44)
[2017-01-09 20:00] VITALS: BP 150/81; PULSE 62; RESP 16; TEMP 97.3; O2SAT 98
[2017-01-09] MEDS ORDERED: HYDR-2374 PO (20:01)
[2017-01-09] MEDS ORDERED: MORP1TAB24 PO (20:09)
[2017-01-10] VITALS: BP 156/88; PULSE 59; RESP 16; TEMP 96.5; O2SAT 97
[2017-01-10] MEDS: SODIUM CHLOR 0.9% 1000 ML INJ 1,000 ML IV SCH (04:06)
[2017-01-10 05:42] LABS: AUTOMATED NEUTROPHIL # 2.8 TH/MM3 (1.8-7.7); EOSINOPHIL # 0.1 TH/MM3 (0-0.4); EOSINOPHIL % 1.3 % (0.0-4.0); HEMATOCRIT 33.9 % (35.0-46.0); HEMO FLAGS DIFF FINAL; LYMPH % 24.2 % (9.0-44.0); LYMPHOCYTE # 1.1 TH/MM3 (1.0-4.8); MEAN CELL VOLUME 86.1 FL (80.0-100.0); MEAN CORPUSCULAR HGB CONC 33.7 % (32.0-36.0); MONO % 8.2 % (0.0-8.0); NEUT % 66.3 % (16.0-70.0); PLATELET COUNT 149 TH/MM3 (150-450); RED BLOOD COUNT 3.94 MIL/MM3 (4.00-5.30); RED CELL DISTRIBUTION WIDTH 13.3 % (11.6-17.2); WHITE BLOOD COUNT 4.4 TH/MM3 (4.0-11.0)
[2017-01-10 05:50] LABS: CHLORIDE 115 MEQ/L (98-107); POTASSIUM 4.1 MEQ/L (3.5-5.1); SODIUM (NA) 146 MEQ/L (136-145)
[2017-01-10 05:55] LABS: ANION GAP 8 MEQ/L (5-15); BICARBONATE 22.7 MEQ/L (21.0-32.0)
[2017-01-10 06:35] LABS: ALKALINE PHOSPHATASE 116 U/L (45-117); ALT (GPT) 23 U/L (10-53); AST (GOT) 20 U/L (15-37); BLOOD UREA NITROGEN 53 MG/DL (7-18); GLOMERULAR FILTRATION RATE 41 ML/MIN (>89); TOTAL BILIRUBIN ADULT 0.4 MG/DL (0.2-1.0)
[2017-01-10 08:00] VITALS: BP 151/88; PULSE 51; RESP 17; TEMP 97.9; O2SAT 100
[2017-01-10] MEDS: SODIUM CHLORIDE 0.9% FLUSH 10 ML FLUSH IV FLUSH SCH (08:11)
[2017-01-10] MEDS ORDERED: amLODIPine BESYLATE 5 MG TAB PO SCH (09:00)
--- NOTE | 2017-01-10 09:59 | HHI.PR ---
Subjective Remarks Follow-up toxic encephalopathy/acute renal failure 01/10/17-patient seen and examined, alert and oriented 3. Only complains of squeezing stomach and reported episode of dry heaves otherwise stable this morning. Renal indices improving. Objective Vitals Vital Signs Date Time Temp Pulse Resp B/P Pulse Ox O2 Delivery O2 Flow Rate FiO2 01/10/17 08:00 97.9 51 17 151/88 100 01/10/17 00:00 96.5 59 16 156/88 97 01/09/17 20:00 97.3 62 16 150/81 98 01/09/17 19:35 98 21 01/09/17 18:10 96.9 83 18 142/79 96 01/09/17 14:25 96 Room Air 01/09/17 14:20 71 14 156/74 96 Room Air 01/09/17 13:18 98.1 83 16 168/75 96 I/O 01/09/17 01/09/17 01/09/17 01/10/17 01/10/17 01/10/17 07:00 15:00 23:00 07:00 15:00 23:00 Intake Total 340 ml 1505 ml Balance 340 ml 1505 ml Intake Oral 240 ml 280 ml IV Total 100 ml 1225 ml # Voids 2 2 # Bowel Movements 0 2 Result Diagram: 01/10/17 0500 01/10/17 0500 Imaging Last Impressions Head CT 01/09/17 1345 Signed Impressions: Service Date/Time: Monday, January 09, 2017 14:13 - CONCLUSION: Negative for an acute process. Kerwin Huang MD FACR Renal Ultrasound 01/09/17 0000 Signed Impressions: Service Date/Time: Monday, January 09, 2017 16:37 - CONCLUSION: 1. The examination is within normal limits. Torito Huang MD Objective Remarks GENERAL: NAD SKIN: Warm and dry. HEAD: Normocephalic. EYES: No scleral icterus. No injection or drainage. NECK: Supple, trachea midline. No JVD or lymphadenopathy. CARDIOVASCULAR: Regular rate and rhythm without murmurs, gallops, or rubs. RESPIRATORY: Breath sounds equal bilaterally. No accessory muscle use. GASTROINTESTINAL: Abdomen soft, non-tender, nondistended. MUSCULOSKELETAL: No cyanosis, or edema. BACK: Nontender without obvious deformity. No CVA tenderness. Procedures none A/P Problem List: (1) Encephalopathy, toxic ICD Code: G92 Status: Resolved (2) MARIA LUISA (acute kidney injury) ICD Code: N17.9 Status: Acute (3) Polypharmacy ICD Code: Z79.899 Status: Acute (4) Benign hypertension ICD Code: I10 Status: Acute Assessment and Plan 66-year-old female with Toxic encephalopathy-resolved Head Negative for an acute process Secondary to medication side effect Hold all [employer] depressant medications Now resolved Acute renal failure-improving Bun/Cr on admission 72/2.00 however was 23/1.00 (07/29/16). BUN/cr 53/1.30 today 01/08/17 aggressive IV fluid hydration Avoid all nephrotoxic drugs renal complements including C3, C4 as well as ADITYA Normal renal ultrasound Hypertension Hold Lisinopril Continue Norvasc 5mg daily Hydralazine PRN RLS -Continue outpatient med DVT prophylaxis: B-SCDs Patient's condition tremendously improved since admission, therefore she'll be discharged home Discharge Planning Discharge patient to home Condition on discharge: Improved Regular Diet as tolerated Ad Qi activity Rx written: Norvasc 5 mg daily Follow-up with primary care physician in one week Aldair Paz MD Jan 10, 2017 09:59
[2017-01-10] MEDS ORDERED: AMLO5 PO (10:01)
[2017-01-11 17:00] LABS: ANA SCREEN POS (NEG)
== END 2017-01-10 12:54 | disposition home or self-care (01) ==
LOC: PHED 13:08 → PHEDA 16:46 → PH3A 18:05
PROVIDERS: ADMIT Hospitalist; ATTEND Hospitalist
DX: G92 Toxic encephalopathy (principal); I10 Essential (primary) hypertension; M79.7 Fibromyalgia; N17.9 Acute kidney failure, unspecified; E86.0 Dehydration; J44.9 Chronic obstructive pulmonary disease, unspecified; G25.81 Restless legs syndrome; M10.9 Gout, unspecified; M06.9 Rheumatoid arthritis, unspecified; Z96.651 Presence of right artificial knee joint
CPT/HCPCS: 70450; 76775; 80053; 80307; 81001; 84443; 85025; 86038; 86039; 86160; 97162; J2405; J7030; 96361; 96374; G0378; P9612

== ENCOUNTER 2017-04-04 02:13 | Emergency (ER) | payer OTHER ==
[~2017-04-04] VITALS: Ht 152.4 cm; Wt 82.5 kg
[~2017-04-04 02:13] MED LIST changes: +AMLO5 PO; -AMLO5TAB2 PO; +BACL10TA PO; -BEDSIDE COMMODE1 MI1; +BUPR150T12 PO; -BUPR1TAB29 PO; -CPMMACHINE; -CYCL1TAB29 PO; -DIAZ5 PO; -EFFE150C PO; +FURO80TA PO; -HYDR-3366 PO; -HYDR-3535 PO; +HYDR200T3 PO; +LATA0.002 EACH EYE; -LISI40TA PO; -MIRA0.25 PO; +QUET5TAB PO; -WALKER WHEELS/F1 MIS
[2017-04-04 02:20] VITALS: BP 192/79; PULSE 52; RESP 18; TEMP 98.1; O2SAT 18; O2SAT 98
[2017-04-04 02:52] VITALS: BP 156/73; PULSE 51; RESP 16; O2SAT 96
[2017-04-04] MEDS ORDERED: METO25TA3 PO (03:13)
[2017-04-04] MEDS ORDERED: PERC7.5T13 PO (03:13)
[2017-04-04 04:33] VITALS: BP 135/70; PULSE 66; RESP 20; O2SAT 97
--- NOTE | 2017-04-04 04:39 | RADRPT ---
EXAM DATE/TIME: 04/04/2017 03:45 [facility] COMPARISON: CT BRAIN W/O CONTRAST, January 09, 2017, 14:13. INDICATIONS : Trauma. Fall. Swelling occipital region of head. RADIATION DOSE: 57.35 CTDIvol (mGy) MEDICAL HISTORY : Hypertension. SURGICAL HISTORY : None. ENCOUNTER: Initial ACUITY: 1 day PAIN SCALE: 10/10 LOCATION: Left occipital TECHNIQUE: Multiple contiguous axial images were obtained of the head. Using automated exposure control and adj ustment of the mA and/or kV according to patient size, radiation dose was kept as low as reasonably a chievable to obtain optimal diagnostic quality images. DICOM format image data is available electro nically for review and comparison. FINDINGS: CEREBRUM: The ventricles are normal for age. No evidence of midline shift, mass lesion, hemorrhage or acute in farction. No extra-axial fluid collections are seen. POSTERIOR FOSSA: The cerebellum and brainstem are intact. The 4th ventricle is midline. The cerebellopontine angle i s unremarkable. EXTRACRANIAL: The visualized portion of the orbits is intact. SKULL: The calvaria is intact. No evidence of skull fracture. CONCLUSION: 1. No evidence of acute intracranial pathology. No masses are identified. Manuel Stratton MD on April 04, 2017 at 4:36 Board Certified Radiologist. This report was verified electronically.
--- NOTE | 2017-04-04 04:43 | PD ---
HPI Chief Complaint: Fall Time Seen by Provider: 03:26 Travel History International Travel<30 days: No Contact w/Intl Traveler<30days: No Traveled to known affect area: No History of Present Illness HPI 66-year-old female presents to the emergency department by private transportation for complaint of scalp swelling status post fall. Patient reports that she has frequent falls due to her history of fibromyalgia lupus and arthritis. Patient states this evening while up out of bed and she is not sure why she fell down hitting the back of her head. Patient did not lose consciousness. Patient denies any neck pain and denies any upper extremity or lower extremity numbness tingling patient has had no pre-fall or post fall confusion chest pain palpitations sweats shortness of breath rib pain back pain nausea vomiting diarrhea incontinence or diaphoresis. Patient's had no recent febrile illness. Patient's had no change to her medications. Patient does take ropinirole, Percocet, baclofen and tizanidine. PFSH Past Medical History Narrative Medical Arthritis asthma lupus anxiety depression dyslipidemia COPD fibromyalgia migraines; no tobacco use no alcohol use: No cigarettes. Hx Anticoagulant Therapy: No Arthritis: Yes (RHEUMATOID) Asthma: Yes Autoimmune Disease: Yes Blood Disorders: No Anxiety: Yes Depression: Yes Cancer: No Cardiovascular Problems: Yes (htn takes no meds) High Cholesterol: Yes COPD: Yes Diabetes: No Diminished Hearing: No Endocrine: No Fibromyalgia: Yes Gastrointestinal Disorders: No Glaucoma: Yes Gout: Yes Genitourinary: No Headaches: Yes Hypertension: Yes Immune Disorder: Yes (lupus) Implanted Vascular Access Dvce: No Musculoskeletal: Yes (BILATERAL PLANTAR FASCITIS) Neurologic: Yes Psychiatric: Yes (INPATIENT FOR NERVOUS BREAKDOWN ) Reproductive: No Respiratory: Yes (asthma) Immunizations Current: Yes Migraines: Yes Seizures: No Menopausal: Yes Past Surgical History Joint Replacement: Yes (Right total knee) Oral Surgery: Yes Other Surgery: Yes (HEMORRHOIDECTOMY) Social History Alcohol Use: No Tobacco Use: No Substance Use: No Allergies-Medications (Allergen,Severity, Reaction): Coded Allergies: cephalexin (Unverified Allergy, Severe, ANAPHYLAXIS, 04/04/17) cat dander (Unverified Allergy, Intermediate, rhinitis, 04/04/17) grass pollen (Unverified Allergy, Intermediate, "Pollen Allergy" per patient report, 04/04/17) house dust (Unverified Allergy, Intermediate, environmental allergy, ) mold (Unverified Allergy, Intermediate, environmental , 04/04/17) prednisone (Unverified Allergy, Intermediate, rash, 04/04/17) pregabalin (Unverified Allergy, Intermediate, rash, 04/04/17) Sulfa (Sulfonamide Antibiotics) (Unverified Allergy, Mild, oral sores, 04/04/17) penicillin G (Unverified Allergy, Mild, itching, 04/04/17) gabapentin (Unverified Adverse Reaction, Mild, falls, 04/04/17) Reported Meds & Prescriptions Reported Meds & Active Scripts Active Reported Percocet (Oxycodone-Acetaminophen) 7.5-325 mg Tab 1 Tab PO Q6H PRN Metoprolol Tartrate 25 Mg Tab 25 Mg PO BID Latanoprost Opth Drops (Latanoprost) 0.005% Drops 1 Drop EACH EYE HS Refrigerate until opened. Hydroxychloroquine (Hydroxychloroquine Sulfate) 200 Mg Tab 200 Mg PO DAILY Takw with food Furosemide 80 Mg Tab 80 Mg PO DAILY Baclofen 10 Mg Tab 10 Mg PO TID Bupropion Sr 12 HR (Bupropion ER 12 HR (Smoking Deterrent)) 150 Mg Tab 150 Mg PO HS Take 1 tablet daily x 3 days then twice daily thereafter. Tizanidine (Tizanidine HCl) 4 Mg Tab 4 Mg PO BID PRN Effexor (Venlafaxine HCl) 75 Mg Tab 75 Mg PO TID K-Tab (Potassium Chloride) 10 Meq Tab 10 Meq PO BID Ropinirole 2 Mg Tab 4 Mg PO BID Review of Systems Except as stated in HPI: all other systems reviewed are Neg Physical Exam Narrative GENERAL: Well-developed, nourished female in no acute distress no respiratory distress SKIN: Warm and dry. HEAD: Atraumatic. Normocephalic. Small posterior scalp soft tissue hematoma no ecchymosis no abrasion no laceration no bony abnormality. EYES: Pupils equal and round. No scleral icterus. No injection or drainage. ENT: No nasal bleeding or discharge. Mucous membranes pink and moist. NECK: Trachea midline. No JVD. No midline tenderness to direct palpation along the cervical spine and no bony step-off mild tenderness to paracervical musculature CARDIOVASCULAR: Regular rate and rhythm. RESPIRATORY: No accessory muscle use. Clear to auscultation. Breath sounds equal bilaterally. GASTROINTESTINAL: Abdomen soft, non-tender, nondistended. Hepatic and splenic margins not palpable. MUSCULOSKELETAL: Extremities without clubbing, cyanosis, or edema. No obvious deformities. NEUROLOGICAL: Awake and alert. No obvious cranial nerve deficits. Motor grossly within normal limits. Five out of 5 muscle strength in the arms and legs. Normal speech. PSYCHIATRIC: Appropriate mood and affect; insight and judgment normal. Data Data Last Documented VS Vital Signs Date Time Temp Pulse Resp B/P (MAP) Pulse Ox O2 Delivery O2 Flow Rate FiO2 04/04/17 05:09 95 04/04/17 04:33 66 20 Room Air 04/04/17 02:[address] Brain W/O Iv Contrast(Rout) (04/04/17 ) Ct Cerv Spine W/O Contrast (04/04/17 ) Ice/Cold Pack (04/04/17 03:26) Ondansetron Odt (Zofran Odt) (04/04/17 05:00) Oxycodone-Acetamin 5-325 Mg (Percocet (04/04/17 05:00) Ed Discharge Order (04/04/17 04:55) [facility] Medical Decision Making Medical Screen Exam Complete: Yes Emergency Medical Condition: Yes Medical Record Reviewed: Yes Interpretation(s) Last Impressions Head CT 04/04/17 0000 Signed Impressions: Service Date/Time: Tuesday, April 04, 2017 03:45 - CONCLUSION: 1. No evidence of acute intracranial pathology. No masses are identified. Manuel Stratton MD Cervical Spine CT 04/04/17 0000 Signed Impressions: Service Date/Time: Tuesday, April 04, 2017 03:45 - CONCLUSION: 1. Moderate degenerative changes as described above. There is no evidence of acute fracture. Manuel Stratton MD Differential Diagnosis Fall, when closed head injury, CHI, scalp contusion, cervical spine sprain strain fracture cord injury Narrative Course CT brain noncontrast and CT cervical spine ordered ice pack applied Imaging studies showed no acute abnormality; patient given Zofran and a one- time dose of Percocet. The patient is stable for outpatient management encouraged to discuss adjusting her frequency of pain medication with her pain management doctor. Patient is encouraged to follow head injury precautions for 24 hours. Diagnosis Primary Impression: Minor closed head injury Additional Impression: Cervical strain Referrals: Primary Care Physician call for appointment Patient Instructions: General Instructions Additional Instructions: May use ice intermittently for first 12-24 hours to areas of soft tissue swelling and discomfort then moist heat Follow head injury precautions 24 hours Follow-up with your primary care provider Continue current medications as chronically prescribed Med/Other Pt SpecificInfo: No Change to Meds Disposition: 01 DISCHARGE HOME Condition: Stable Charlee Hess MD Apr 04, 2017 04:43
--- NOTE | 2017-04-04 04:44 | RADRPT ---
EXAM DATE/TIME: 04/04/2017 03:45 [facility] COMPARISON: CT CERVICAL SPINE W/O CONTRAST, May 26, 2016, 15:25. INDICATIONS : Trauma. Fall. Neck pain. RADIATION DOSE: 25.90 CTDIvol (mGy) MEDICAL HISTORY : Hypertension. SURGICAL HISTORY : None. ENCOUNTER: Initial ACUITY: 1 day PAIN SCALE: 10/10 LOCATION: Bilateral neck TECHNIQUE: Volumetric scanning of the cervical spine was performed. Multiplanar reconstructions in the sagittal, coronal and oblique axial planes were performed. Using automated exposure control and adjustment o f the mA and/or kV according to patient size, radiation dose was kept as low as reasonably achievable to obtain optimal diagnostic quality images. DICOM format image data is available electronically f or review and comparison. FINDINGS: CT of the cervical spine was performed in sagittal and axial planes. There is anterolisthesis likely related to facet arthritis at the C4-C5-1-4 to 5 mm with 2-3 mm subluxation of C3 on C4. There is ost eorathritis involving the atlantoaxial joint with sclerosis and osteophyte formation. No focal areas of marrow replacement are identified. The craniocervical junction appears normal. There are 8mm nodu les in both lobes of the thyroid which are incidental C2-C3: There is mild annular bulge of the disc. There is mild facet arthritis bilaterally. C3-C4: There is mild annular bulge of the disc. There is uncovertebral joint hypertrophy bilaterally. There is moderate neural foraminal narrowing on the right. C4-C5: There is mild annular bulge of the disc. There is mild facet arthritis bilaterally. C5-C6: There is uncovertebral joint hypertrophy on the right side. There is moderate neural foraminal narrow ing on the right. There is no significant spinal canal stenosis. There is moderate facet arthritis on the right. C6-C7: No significant abnormalities identified. C7-T1: There is no evidence of disc protrusion or spinal canal stenosis. There is mild facet arthritis on th e right. CONCLUSION: 1. Moderate degenerative changes as described above. There is no evidence of acute fracture. Manuel Stratton MD on April 04, 2017 at 4:37 Board Certified Radiologist. This report was verified electronically.
[2017-04-04] MEDS ORDERED: oxyCODONE/ACETAMINOPHEN 5 MG/325 MG TAB PO ONE (05:00)
[2017-04-04] MEDS ORDERED: ONDANSETRON ODT 4 MG TAB PO ONE (05:00)
== END 2017-04-04 05:30 | disposition home or self-care (01) ==
LOC: PHED 02:13
DX: S09.90XA Unspecified injury of head, initial encounter (principal); S16.1XXA Strain of muscle, fascia and tendon at neck level, initial encounter; M79.7 Fibromyalgia; M32.9 Systemic lupus erythematosus, unspecified; I10 Essential (primary) hypertension; W19.XXXA Unspecified fall, initial encounter
CPT/HCPCS: 70450; 72125; 99285

== ENCOUNTER 2017-04-08 20:33 | Emergency (ER) | payer OTHER ==
[~2017-04-08] VITALS: Ht 152.4 cm; Wt 84.0 kg
[~2017-04-08 20:33] MED LIST changes: -AMLO5 PO; +METO25TA3 PO; +PERC7.5T13 PO; -QUET5TAB PO
[2017-04-08 20:54] VITALS: BP 200/86; PULSE 92; RESP 24; TEMP 97.4; O2SAT 99
[2017-04-08 22:10] VITALS: BP 188/86; PULSE 76; RESP 18; O2SAT 98
--- NOTE | 2017-04-08 22:12 | PD ---
HPI Chief Complaint: Fall Time Seen by Provider: 22:12 Travel History International Travel<30 days: No Contact w/Intl Traveler<30days: No Traveled to known affect area: No History of Present Illness HPI 66-year-old female came to the emergency room with history of fall tonight. Patient does not know how this happened. She thinks she sleep walks because she found herself on the floor in the living room and she wasn't sure how she got there. Patient says this happened last night and at that time she hit her head. She was seen in the emergency room last night. Patient is on a lot of medications including medications for psych and restless leg syndrome. She also has Percocet and tizanidine but says that she hasn't taken them in past 3 days. She is complaining of right shoulder pain. The shoulder has an ice pack on it. Pain is worse when she tries to move the right arm. She is otherwise awake and answering questions appropriately. Vital signs are stable. [facility] Past Medical History Narrative Medical List of her past medical, surgical, social and family history is reviewed from the nursing note. Hx Anticoagulant Therapy: No Arthritis: Yes (RHEUMATOID) Asthma: Yes Autoimmune Disease: Yes Blood Disorders: No Anxiety: Yes Depression: Yes Cancer: No Cardiovascular Problems: Yes (htn takes no meds and Heart murmur) High Cholesterol: Yes COPD: Yes Diabetes: No Diminished Hearing: No Endocrine: No Fibromyalgia: Yes Gastrointestinal Disorders: No Glaucoma: Yes Gout: Yes Genitourinary: No Headaches: Yes Hypertension: Yes Immune Disorder: Yes (lupus) Implanted Vascular Access Dvce: No Musculoskeletal: Yes (BILATERAL PLANTAR FASCITIS, osteoporosis, broke left elbow 2013) Neurologic: Yes (restless leg) Psychiatric: Yes (INPATIENT FOR NERVOUS BREAKDOWN ) Reproductive: No Respiratory: Yes (asthma) Immunizations Current: Yes Migraines: Yes Seizures: No Menopausal: Yes Past Surgical History Joint Replacement: Yes (Right total knee) Oral Surgery: Yes Other Surgery: Yes (HEMORRHOIDECTOMY) Social History Alcohol Use: No Tobacco Use: No Substance Use: No Allergies-Medications (Allergen,Severity, Reaction): Coded Allergies: cephalexin (Unverified Allergy, Severe, ANAPHYLAXIS, 04/08/17) cat dander (Unverified Allergy, Intermediate, rhinitis, 04/08/17) grass pollen (Unverified Allergy, Intermediate, "Pollen Allergy" per patient report, 04/08/17) house dust (Unverified Allergy, Intermediate, environmental allergy, 04/08) mold (Unverified Allergy, Intermediate, environmental , 04/08/17) prednisone (Unverified Allergy, Intermediate, rash, 04/08/17) pregabalin (Unverified Allergy, Intermediate, rash, 04/08/17) Sulfa (Sulfonamide Antibiotics) (Unverified Allergy, Mild, oral sores, 04/14) penicillin G (Unverified Allergy, Mild, itching, 04/08/17) gabapentin (Unverified Adverse Reaction, Mild, falls, 04/08/17) Comments list of her allergies reviewed from the nursing note. Reported Meds & Prescriptions Reported Meds & Active Scripts Active Ibuprofen 600 Mg Tab 600 Mg PO Q6H PRN Reported Percocet (Oxycodone-Acetaminophen) 7.5-325 mg Tab 1 Tab PO Q6H PRN Metoprolol Tartrate 25 Mg Tab 25 Mg PO BID Latanoprost Opth Drops (Latanoprost) 0.005% Drops 1 Drop EACH EYE HS Refrigerate until opened. Hydroxychloroquine (Hydroxychloroquine Sulfate) 200 Mg Tab 200 Mg PO DAILY Takw with food Furosemide 80 Mg Tab 80 Mg PO DAILY Baclofen 10 Mg Tab 10 Mg PO TID Bupropion Sr 12 HR (Bupropion ER 12 HR (Smoking Deterrent)) 150 Mg Tab 150 Mg PO HS Take 1 tablet daily x 3 days then twice daily thereafter. Tizanidine (Tizanidine HCl) 4 Mg Tab 4 Mg PO BID PRN Effexor (Venlafaxine HCl) 75 Mg Tab 75 Mg PO TID K-Tab (Potassium Chloride) 10 Meq Tab 10 Meq PO BID Ropinirole 2 Mg Tab 4 Mg PO BID Narrative Medication List of her home medications reviewed from the nursing note. Review of Systems Except as stated in HPI: all other systems reviewed are Neg Musculoskeletal: Positive: Pain Physical Exam Narrative GENERAL: Awake, alert, moderate distress SKIN: Focused skin assessment warm/dry. HEAD: Atraumatic. Normocephalic. EYES: Pupils equal and round. No scleral icterus. No injection or drainage. ENT: No nasal bleeding or discharge. Mucous membranes pink and moist. NECK: Trachea midline. No JVD. CARDIOVASCULAR: Regular rate and rhythm. No murmur appreciated. RESPIRATORY: No accessory muscle use. Clear to auscultation. Breath sounds equal bilaterally. GASTROINTESTINAL: Abdomen soft, non-tender, nondistended. Hepatic and splenic margins not palpable. MUSCULOSKELETAL: No obvious deformities. No clubbing. No cyanosis. No edema. Decreased range of motion at the right shoulder joint due to the pain. Distal neurovascular is intact NEUROLOGICAL: Awake and alert. No obvious cranial nerve deficits. Motor grossly within normal limits. Normal speech. PSYCHIATRIC: Appropriate mood and affect; insight and judgment normal. Data Data Last Documented VS Vital Signs Date Time Temp Pulse Resp B/P (MAP) Pulse Ox O2 Delivery O2 Flow Rate FiO2 04/08/17 23:50 97.7 79 18 163/86 (111) 97 04/08/17 22:10 Room Air Orders Orders Ketorolac Inj (Toradol Inj) (04/08/17 22:30) Shoulder, Complete (>2vws) (04/08/17 ) ^ Sling (04/08/17 22:54) Ed Discharge Order (04/08/17 22:58) MDM Medical Decision Making Medical Screen Exam Complete: Yes Emergency Medical Condition: Yes Medical Record Reviewed: Yes Differential Diagnosis Shoulder dislocation, shoulder fracture, shoulder strain Narrative Course 10:37 PM patient was given IM Toradol for pain. Awaiting for the x-ray to be done and resulted. 10:55 PM the x-ray does not show any fracture or dislocation. I've ordered a arm sling. She'll be discharged home. Procedures EKG Prior to Arrival: No Diagnosis Primary Impression: Fall Qualified Codes: W19.XXXA - Unspecified fall, initial encounter Additional Impression: Shoulder strain Qualified Codes: S46.911A - Strain of unspecified muscle, fascia and tendon at shoulder and upper arm level, right arm, initial encounter Referrals: Primary Care Physician 2 days Additional Instructions: Please return to the ER if the condition worsens or any other new concerns. Keep the arm in the sling for next 2-3 days and then slowly start using it. Apply ice pack. The medication as per the prescription direction. Follow-up with your primary care. Be careful taking all the medications together that causes drowsiness. You should discuss about these medications with your primary care and see which ones could be eliminated. Med/Other Pt SpecificInfo: Prescription(s) given Scripts Ibuprofen (Ibuprofen) 600 Mg Tab 600 MG PO Q6H Y for Pain/Inflammation, #40 TAB 0 Refills Prov: Lamin Mac MD 04/08/17 Disposition: 01 DISCHARGE HOME Condition: Stable Lamin Mac MD Apr 08, 2017 22:12
[2017-04-08] MEDS ORDERED: KETOROLAC TROMETHAMINE 60 MG/2 ML (IM) VIAL IM ONE (22:30)
[2017-04-08] MEDS ORDERED: IBUP-232 PO (22:57)
--- NOTE | 2017-04-08 23:07 | RADRPT ---
EXAM DATE/TIME: 04/08/2017 22:31 [facility] COMPARISON: SHOULDER RIGHT COMPLETE (>2VWS), June 30, 2015, 7:23. INDICATIONS : Shoulder pain, from fall last night. MEDICAL HISTORY : None. SURGICAL HISTORY : None. ENCOUNTER: Initial ACUITY: 1 day PAIN SCORE: 0/10 LOCATION: Right shoulder FINDINGS: There is no evidence of acute fracture. Bony mineralization is normal. There is mild osteoarthritis i nvolving the acromioclavicular joint. Impingement cyst is present in the humeral head. CONCLUSION: 1. Mild osteoarthritis as described above. There is no evidence of acute fracture. Manuel Stratton MD on April 08, 2017 at 23:05 Board Certified Radiologist. This report was verified electronically.
[2017-04-08 23:50] VITALS: BP 163/86; TEMP 97.7
== END 2017-04-09 00:06 | disposition home or self-care (01) ==
LOC: PHED 20:33
DX: S46.911A Strain of unspecified muscle, fascia and tendon at shoulder and upper arm level, right arm, initial encounter (principal); I10 Essential (primary) hypertension; E78.00 Pure hypercholesterolemia, unspecified; Z87.39 Personal history of other diseases of the musculoskeletal system and connective tissue; Z87.09 Personal history of other diseases of the respiratory system; Z86.2 Personal history of diseases of the blood and blood-forming organs and certain disorders involving the immune mechanism; Z86.59 Personal history of other mental and behavioral disorders; Z86.79 Personal history of other diseases of the circulatory system; Z86.69 Personal history of other diseases of the nervous system and sense organs; W19.XXXA Unspecified fall, initial encounter
CPT/HCPCS: 73030; 96372; 99285; J1885

== ENCOUNTER 2017-04-29 02:18 | Emergency (ER) | payer OTHER ==
[~2017-04-29] VITALS: Ht 152.4 cm; Wt 81.4 kg
[~2017-04-29 02:18] MED LIST changes: +IBUP-232 PO
[2017-04-29 02:26] VITALS: BP 108/56; PULSE 54; RESP 16; TEMP 97.6; O2SAT 96
[2017-04-29 03:59] VITALS: RESP 16; O2SAT 96
[2017-04-29] MEDS ORDERED: KETOROLAC TROMETHAMINE 60 MG/2 ML (IM) VIAL IM ONE (04:15)
[2017-04-29] MEDS ORDERED: ORPHENADRINE INJ 60 MG/2 ML AMP IM ONE (04:15)
--- NOTE | 2017-04-29 04:18 | PD ---
HPI Chief Complaint: Musculoskeletal Complaint Time Seen by Provider: 04:12 Travel History International Travel<30 days: No Contact w/Intl Traveler<30days: No Traveled to known affect area: No History of Present Illness HPI 67 year-old female presents to emergency Department progressively worsening left shoulder pain neck pain and head pain status post fall. Patient states 2 weeks ago she had a/was seen in the emergency department imaging study was done at findings were identified subsequently a few days later she fell again hit her head did not have loss of consciousness but states since that time she's had increasing pain in the left shoulder radiating into the left neck and head. Patient has no paresthesias or weakness. No saddle anesthesia no bladder or bowel dysfunction. The patient reports her pain 9/10 in intensity. PFSH Past Medical History Narrative Medical Arthritis anxiety hypertension COPD dyslipidemia; no tobacco use; nursing notes reviewed Hx Anticoagulant Therapy: No Arthritis: Yes (RHEUMATOID) Asthma: Yes Autoimmune Disease: Yes Blood Disorders: No Anxiety: Yes Depression: Yes Cancer: No Cardiovascular Problems: Yes (htn takes no meds and Heart murmur) High Cholesterol: Yes COPD: Yes Diabetes: No Diminished Hearing: No Endocrine: No Fibromyalgia: Yes Gastrointestinal Disorders: No Glaucoma: Yes Gout: Yes Genitourinary: No Headaches: Yes Hypertension: Yes Immune Disorder: Yes (lupus) Implanted Vascular Access Dvce: No Musculoskeletal: Yes (BILATERAL PLANTAR FASCITIS, osteoporosis, broke left elbow 2013) Neurologic: Yes (restless leg) Psychiatric: Yes (INPATIENT FOR NERVOUS BREAKDOWN 1969-) Reproductive: No Respiratory: Yes (asthma) Immunizations Current: Yes Migraines: Yes Seizures: No Tetanus Vaccination: < 5 Years Influenza Vaccination: Yes ?: Not Menopausal: Yes Past Surgical History Joint Replacement: Yes (Right total knee) Oral Surgery: Yes Other Surgery: Yes (HEMORRHOIDECTOMY) Social History Alcohol Use: No Tobacco Use: No Substance Use: No Allergies-Medications (Allergen,Severity, Reaction): Coded Allergies: cephalexin (Unverified Allergy, Severe, ANAPHYLAXIS, 04/29/17) cat dander (Unverified Allergy, Intermediate, rhinitis, 04/29/17) grass pollen (Unverified Allergy, Intermediate, "Pollen Allergy" per patient report, 04/29/17) house dust (Unverified Allergy, Intermediate, environmental allergy, ) mold (Unverified Allergy, Intermediate, environmental , 04/29/17) prednisone (Unverified Allergy, Intermediate, rash, 04/29/17) pregabalin (Unverified Allergy, Intermediate, rash, 04/29/17) Sulfa (Sulfonamide Antibiotics) (Unverified Allergy, Mild, oral sores, 04/29/17) penicillin G (Unverified Allergy, Mild, itching, 04/29/17) gabapentin (Unverified Adverse Reaction, Mild, falls, 04/29/17) Reported Meds & Prescriptions Reported Meds & Active Scripts Active Ibuprofen 600 Mg Tab 600 Mg PO Q6H PRN Reported Percocet (Oxycodone-Acetaminophen) 7.5-325 mg Tab 1 Tab PO Q6H PRN Metoprolol Tartrate 25 Mg Tab 25 Mg PO BID Latanoprost Opth Drops (Latanoprost) 0.005% Drops 1 Drop EACH EYE HS Refrigerate until opened. Hydroxychloroquine (Hydroxychloroquine Sulfate) 200 Mg Tab 200 Mg PO DAILY Takw with food Furosemide 80 Mg Tab 80 Mg PO DAILY Baclofen 10 Mg Tab 10 Mg PO TID Bupropion Sr 12 HR (Bupropion ER 12 HR (Smoking Deterrent)) 150 Mg Tab 150 Mg PO HS Take 1 tablet daily x 3 days then twice daily thereafter. Tizanidine (Tizanidine HCl) 4 Mg Tab 4 Mg PO BID PRN Effexor (Venlafaxine HCl) 75 Mg Tab 75 Mg PO TID K-Tab (Potassium Chloride) 10 Meq Tab 10 Meq PO BID Ropinirole 2 Mg Tab 4 Mg PO BID Review of Systems Except as stated in HPI: all other systems reviewed are Neg Physical Exam Narrative GENERAL: Well-developed well-nourished female in no acute distress no respiratory distress resting with her head flexed forward. SKIN: Warm and dry. GCS 15. HEAD: Atraumatic. Normocephalic. EYES: Pupils equal and round. No scleral icterus. No injection or drainage. ENT: No nasal bleeding or discharge. Mucous membranes pink and moist. NECK: Trachea midline. No JVD. CARDIOVASCULAR: Regular rate and rhythm. RESPIRATORY: No accessory muscle use. Clear to auscultation. Breath sounds equal bilaterally. GASTROINTESTINAL: Abdomen soft, non-tender, nondistended. Hepatic and splenic margins not palpable. MUSCULOSKELETAL: Extremities without clubbing, cyanosis, or edema. No obvious deformities. NEUROLOGICAL: Awake and alert. No obvious cranial nerve deficits. Motor grossly within normal limits. Five out of 5 muscle strength in the arms and legs. Normal speech. PSYCHIATRIC: Appropriate mood and affect; insight and judgment normal. Data Data Last Documented VS Vital Signs Date Time Temp Pulse Resp B/P (MAP) Pulse Ox O2 Delivery O2 Flow Rate FiO2 04/29/17 05:51 50 16 150/61 (90) 96 Room Air 04/29/17 02:[address] Brain W/O Iv Contrast(Rout) (04/29/17 ) Ct Cerv Spine W/O Contrast (04/29/17 ) Shoulder, Complete (>2vws) (04/29/17 ) Ketorolac Inj (Toradol Inj) (04/29/17 04:15) Orphenadrine Inj (Norflex Inj) (04/29/17 04:15) MDM Medical Decision Making Medical Screen Exam Complete: Yes Emergency Medical Condition: Yes Medical Record Reviewed: Yes Interpretation(s) Last Impressions Shoulder X-Ray 04/29/17 0000 Signed Impressions: Service Date/Time: Saturday, April 29, 2017 04:35 - CONCLUSION: No acute left shoulder abnormality is identified. There is mild osteoarthritis at the glenohumeral joint. Bryan Tsai MD Head CT 04/29/17 0000 Signed Impressions: Service Date/Time: Saturday, April 29, 2017 04:24 - CONCLUSION: Stable noncontrast head CT. No acute intracranial abnormality is identified. Bryan Tsai MD Cervical Spine CT 04/29/17 0000 Signed Impressions: Service Date/Time: Saturday, April 29, 2017 04:24 - CONCLUSION: 1. Stable examination of the cervical spine without an acute abnormality identified. 2. There is cervical kyphosis with degenerative disc disease at multiple levels. 3. Bilateral thyroid nodules measuring 7 mm. Bryan Tsai MD Differential Diagnosis Cervical strain radiculopathy minor CHI ICH brachioplexopathy tendinitis Narrative Course IV access obtained specimens collected and sent for resulting At 6:25 AM imaging results reading radiologist reveals no acute abnormality Patient is informed of imaging results and assess her response to pain medication; she reports her pain is markedly improved and is desirous of being discharged to home. Diagnosis Primary Impression: Acute cervical myofascial strain Qualified Codes: S16.1XXA - Strain of muscle, fascia and tendon at neck level , initial encounter Additional Impression: Shoulder contusion Qualified Codes: S40.012A - Contusion of left shoulder, initial encounter Referrals: Primary Care Physician call for appointment Patient Instructions: General Instructions Additional Instructions: Continue current medications as presently prescribed Follow-up with your primary care provider Use moist heat to neck and upper shoulder area Return to the emergency department for any concerns or change in condition Med/Other Pt SpecificInfo: No Change to Meds Disposition: 01 DISCHARGE HOME Condition: Stable Charlee Hess MD Apr 29, 2017 04:18
[2017-04-29 05:51] VITALS: BP 150/61; PULSE 50; RESP 16; O2SAT 96
--- NOTE | 2017-04-29 06:04 | RADRPT ---
EXAM DATE/TIME: 04/29/2017 04:24 [facility] COMPARISON: CT BRAIN W/O CONTRAST, April 04, 2017, 3:45. INDICATIONS : Frequent falls. Shoulder pain for 3 days. RADIATION DOSE: 59.81 CTDIvol (mGy) MEDICAL HISTORY : Lupus. Hypertension. Migrain, fibromyalgia SURGICAL HISTORY : None. dental ENCOUNTER: Initial ACUITY: 3 days PAIN SCALE: 10/10 LOCATION: Left cranial TECHNIQUE: Multiple contiguous axial images were obtained of the head. Using automated exposure control and adj ustment of the mA and/or kV according to patient size, radiation dose was kept as low as reasonably a chievable to obtain optimal diagnostic quality images. DICOM format image data is available electro nically for review and comparison. FINDINGS: CEREBRUM: The ventricles are normal. No evidence of midline shift, mass lesion, hemorrhage or acute infarction . No extra-axial fluid collections are seen. POSTERIOR FOSSA: The cerebellum and brainstem are intact. The 4th ventricle is midline. The cerebellopontine angle i s unremarkable. EXTRACRANIAL: Visualized sinuses are clear. SKULL: The calvaria is intact. No evidence of skull fracture. CONCLUSION: Stable noncontrast head CT. No acute intracranial abnormality is identified. Bryan Tsai MD on April 29, 2017 at 6:00 Board Certified Radiologist. This report was verified electronically.
--- NOTE | 2017-04-29 06:11 | RADRPT ---
EXAM DATE/TIME: 04/29/2017 04:24 [facility] COMPARISON: CT CERVICAL SPINE W/O CONTRAST, April 04, 2017, 3:45. INDICATIONS : Frequent falls. Left shoulder and neck pain. RADIATION DOSE: 26.28 CTDIvol (mGy) MEDICAL HISTORY : Hypertension. Lupus. Fibromyalgia SURGICAL HISTORY : None. ENCOUNTER: Initial ACUITY: 3 days PAIN SCALE: 10/10 LOCATION: Left neck TECHNIQUE: Volumetric scanning of the cervical spine was performed. Multiplanar reconstructions in the sagittal, coronal and oblique axial planes were performed. Using automated exposure control and adjustment o f the mA and/or kV according to patient size, radiation dose was kept as low as reasonably achievable to obtain optimal diagnostic quality images. DICOM format image data is available electronically f or review and comparison. FINDINGS: There is cervical kyphosis with stable 3 mm of anterolisthesis of C3 on C4 and C4 on C5. There is dec reased disc height with endplate osteophytes at C3-C4 through C6-C7. There is no prevertebral soft ti ssue swelling present. No fracture or dislocation is identified. There are stable posterior disc oste ophyte complex at multiple levels most prominent at C5-C6 and C6-C7. There are stable bilateral hypodense thyroid nodules measuring 7 mm each. Otherwise, the visualized p ortions of the posterior fossa, paraspinous soft tissues, and upper lung zones demonstrate no acute a bnormality. CONCLUSION: 1. Stable examination of the cervical spine without an acute abnormality identified. 2. There is cervical kyphosis with degenerative disc disease at multiple levels. 3. Bilateral thyroid nodules measuring 7 mm. Bryan Tsai MD on April 29, 2017 at 6:05 Board Certified Radiologist. This report was verified electronically.
--- NOTE | 2017-04-29 06:17 | RADRPT ---
EXAM DATE/TIME: 04/29/2017 04:35 [facility] COMPARISON: No previous studies available for comparison. INDICATIONS : Shoulder pain. MEDICAL HISTORY : Hypertension. Arthritis. Rheumatoid arthritis. Migraines. Asthma. COPD. Plantar fasciitis. Gout. Anxi ety. Depression. Lupus SURGICAL HISTORY : Total knee replacement, right. Hemorroidectomy. ENCOUNTER: Initial ACUITY: 3 days PAIN SCORE: 10/10 LOCATION: Left upper extremity shoulder. FINDINGS: 4 views of the left shoulder demonstrate no fracture or dislocation. The acromioclavicular joint is i ntact. There is mild osteoarthritis at the glenohumeral joint. No soft tissue abnormality is identifi ed. The visualized portions of the left lung are clear and no displaced rib fracture is seen. CONCLUSION: No acute left shoulder abnormality is identified. There is mild osteoarthritis at the glenohumeral grzegorz int. Bryan Tsai MD on April 29, 2017 at 6:15 Board Certified Radiologist. This report was verified electronically.
[2017-04-29 06:48] VITALS: BP 156/63
== END 2017-04-29 06:50 | disposition home or self-care (01) ==
LOC: PHED 02:18
DX: S16.1XXA Strain of muscle, fascia and tendon at neck level, initial encounter (principal); S40.012A Contusion of left shoulder, initial encounter; W19.XXXA Unspecified fall, initial encounter
CPT/HCPCS: 70450; 72125; 73030; 96372; 99285; J1885; J2360

== ENCOUNTER 2017-05-22 02:27 | Inpatient (IN) | payer OTHER, MEDICARE ==
[2017-05-22] VITALS (14 sets, daily range): BP systolic 145–184; BP diastolic 66–94; PULSE 58–84; RESP 16–20; TEMP 98–98.5; O2SAT 92–98
[~2017-05-22] VITALS: Ht 152.4 cm; Wt 84.1 kg
--- NOTE | 2017-05-22 02:51 | PD ---
HPI Chief Complaint: Fall Time Seen by Provider: 02:43 Travel History International Travel<30 days: No Contact w/Intl Traveler<30days: No Traveled to known affect area: No History of Present Illness HPI 67-year-old female presents to the emergency department by private transportation for complaint of head pain and neck pain. Patient states she was sitting on the toilet on Monday evening fell asleep and fell to the floor. Since falling onto the floor she's had increasing posterior head pain and neck pain. Patient denies any upper extremity or lower extremity numbness tingling or weakness. Patient states that her current pain medication is not providing any relief. Patient is on narcotic pain medication. Patient is under the care of her pain management provider. Patient is also in the care of to neurologist Dr. Romano and Dr. Payne. Patient is frustrated because no one is providing an acceptable explanation as to why her legs are weak and washed swelling. Patient states she also has insomnia. Patient states that she feels that if she was not so tired she was also. This is one of several falls since the beginning of March. Patient has had multiple imaging studies. Patient reports that she's had MRIs and nerve conduction studies and EMGs and non-configure why she has neck pain head pain and frequent falls. Patient denies other concerns or complaints. No saddle anesthesia no bladder or bowel dysfunction. states patient refuses to use a walker or wheelchair. Patient reports that she uses a wheelchair as available and that she uses a cane at all times. disputes this. The patient rates her pain 10 over 10 intensity. PFSH Past Medical History Narrative Medical Anxiety osteoarthritis lupus arthritis rheumatoid arthritis COPD hypertension dyslipidemia chronic pain syndrome no tobacco use nursing notes reviewed Hx Anticoagulant Therapy: No Arthritis: Yes (RHEUMATOID) Asthma: Yes Autoimmune Disease: Yes Blood Disorders: No Anxiety: Yes Depression: Yes Cancer: No Cardiovascular Problems: Yes (htn takes no meds and Heart murmur) High Cholesterol: Yes COPD: Yes Diabetes: No Diminished Hearing: No Endocrine: No Fibromyalgia: Yes Gastrointestinal Disorders: No Glaucoma: Yes Gout: Yes Genitourinary: No Headaches: Yes Hypertension: Yes Immune Disorder: Yes (lupus) Implanted Vascular Access Dvce: No Musculoskeletal: Yes (BILATERAL PLANTAR FASCITIS, osteoporosis, broke left elbow 2013) Neurologic: Yes (restless leg) Psychiatric: Yes (INPATIENT FOR NERVOUS BREAKDOWN 1969-) Reproductive: No Respiratory: Yes (asthma) Immunizations Current: Yes Migraines: Yes Seizures: No ?: Not Menopausal: Yes Past Surgical History Joint Replacement: Yes (Right total knee) Oral Surgery: Yes Other Surgery: Yes (HEMORRHOIDECTOMY) Social History Alcohol Use: No Tobacco Use: No Substance Use: No Allergies-Medications (Allergen,Severity, Reaction): Coded Allergies: cephalexin (Unverified Allergy, Severe, ANAPHYLAXIS, 05/22/17) cat dander (Unverified Allergy, Intermediate, rhinitis, 05/22/17) grass pollen (Unverified Allergy, Intermediate, "Pollen Allergy" per patient report, 05/22/17) house dust (Unverified Allergy, Intermediate, environmental allergy, 05/22) mold (Unverified Allergy, Intermediate, environmental , 05/22/17) pregabalin (Unverified Allergy, Intermediate, rash, 05/22/17) Sulfa (Sulfonamide Antibiotics) (Unverified Allergy, Mild, oral sores, ) penicillin G (Unverified Allergy, Mild, itching, 05/22/17) gabapentin (Unverified Adverse Reaction, Mild, falls, 05/22/17) Reported Meds & Prescriptions Reported Meds & Active Scripts Active Ibuprofen 600 Mg Tab 600 Mg PO Q6H PRN Reported Effexor (Venlafaxine HCl) 75 Mg Tab 75 Mg PO BID Oxycodone-Acetaminophen 10-325 mg Tab 1 Tab PO TID PRN Metoprolol Tartrate 25 Mg Tab 25 Mg PO BID Latanoprost Opth Drops (Latanoprost) 0.005% Drops 1 Drop EACH EYE HS Refrigerate until opened. Hydroxychloroquine (Hydroxychloroquine Sulfate) 200 Mg Tab 200 Mg PO DAILY Takw with food Furosemide 80 Mg Tab 80 Mg PO DAILY Baclofen 10 Mg Tab 10 Mg PO TID Bupropion Sr 12 HR (Bupropion ER 12 HR (Smoking Deterrent)) 150 Mg Tab 150 Mg PO HS Take 1 tablet daily x 3 days then twice daily thereafter. Tizanidine (Tizanidine HCl) 4 Mg Tab 4 Mg PO BID PRN K-Tab (Potassium Chloride) 10 Meq Tab 10 Meq PO BID Ropinirole 2 Mg Tab 4 Mg PO BID Review of Systems Except as stated in HPI: all other systems reviewed are Neg General / Constitutional: No: Fever, Chills HENT: Positive: Headaches, Neck Stiffness, Neck Pain, No: Congestion Cardiovascular: No: Chest Pain or Discomfort, Palpitations Respiratory: No: Cough, Shortness of Breath Gastrointestinal: No: Nausea, Vomiting, Abdominal Pain Genitourinary: No: Incontinence, Flank Pain Musculoskeletal: Positive: Myalgias, Arthralgias, Limited ROM (neck), Pain ( neck) Skin: No Rash Neurologic: Positive: Headache, No: Weakness, Dizziness, Syncope, Focal Abnormalities, Coordination Problem, Paresthesia, Incontinence Psychiatric: Positive: Anxiety Endocrine: No: Heat Intolerance, Cold Intolerance Hematologic/Lymphatic: No: Easy Bruising Physical Exam Narrative GENERAL: Well-developed well-nourished female in no acute distress no respiratory distress conducts the interview with her eyes closed but can readily open them when asked to do so. SKIN: Warm and dry. HEAD: Normocephalic. EYES: No scleral icterus. No injection or drainage. NECK: Supple, trachea midline. No JVD or lymphadenopathy. Posterior cervical spine tender to palpation without bony step-off. CARDIOVASCULAR: Regular rate and rhythm without murmurs, gallops, or rubs. RESPIRATORY: Breath sounds equal bilaterally. No accessory muscle use. GASTROINTESTINAL: Abdomen soft, non-tender, nondistended. MUSCULOSKELETAL: No cyanosis, or edema. BACK: Nontender without obvious deformity. No CVA tenderness. Data Data Last Documented VS Vital Signs Date Time Temp Pulse Resp B/P (MAP) Pulse Ox O2 Delivery O2 Flow Rate FiO2 05/22/17 02:58 16 95 Room Air 05/22/17 02:34 98.0 63 153/67 (95) Orders Orders Ct Brain W/O Iv Contrast(Rout) (05/22/17 ) Ct Cerv Spine W/O Contrast (05/22/17 ) Ketorolac Inj (Toradol Inj) (05/22/17 03:00) Orphenadrine Inj (Norflex Inj) (05/22/17 03:00) Apply Cervical Collar (05/22/17 03:45) Admit Order (Ed Use Only) (05/22/17 ) Service Center Assistant / Telemetry [email or web address] (05/22/17 04:02) Diet Npo (05/22/17 Breakfast) Activity Bed Rest (05/22/17 04:02) Notify Dr: Other (05/22/17 04:02) NPO (05/22/17 04:03) ^ Saline Lock (05/22/17 04:03) Complete Blood Count With Diff (05/22/17 04:03) Act Partial Throm Time (Ptt) (05/22/17 04:03) Prothrombin Time / Inr (Pt) (05/22/17 04:03) Basic Metabolic Panel (Bmp) (05/22/17 04:03) Type And Screen (05/22/17 04:03) Electrocardiogram (05/22/17 ) MDM Medical Decision Making Medical Screen Exam Complete: Yes Emergency Medical Condition: Yes Medical Record Reviewed: Yes Interpretation(s) EKG: Sinus bradycardia rate [address] elevation injury pattern or ectopy Last Impressions Head CT 05/22/17 0000 Signed Impressions: Service Date/Time: Monday, May 22, 2017 03:02 - CONCLUSION: Unremarkable study. Alexander Figueroa MD CT cerv spine w/o: FINDINGS: There is a fracture of the dens with approximately 3 mm separation of the fracture fragments and slight angulation dorsally. There is no compromise to the thecal sac or spinal cord at this level. There is also fracture of the anterior portion of the arch of C1 and these findings were not present previously. There is superimposed pannus formation and chronic degenerative change at this level the calcifications identified anteriorly chronic in nature. Degenerative changes are again seen with slight neural foraminal compromise at multiple levels and no appreciable thecal sac stenosis is seen. There is steplike degenerative anterior subluxation from C3-C6. CONCLUSION: Fracture of dens and anterior arch of C1 not present previously without any significant thecal sac stenosis. Alexander Figueroa MD on May 22, 2017 at 3:33 Board Certified Radiologist. This report was verified electronically. Differential Diagnosis Mechanical fall, minor closed injury, ICH, cervical spine sprain strain fracture cord injury, chronic pain Narrative Course Patient wearing soft collar complains of neck pain after fall off of commode Monday night. Patient is and multiple ED visits and imaging study for frequent falls associated with head injury neck injury. CT brain noncontrast and CT cervical spine noncontrast ordered. Patient offered Toradol 60 mg IM and Norflex [address] brain noncontrast reveals no acute process however CT cervical spine revealed a C1 fracture; call placed to neurosurgeon Patient informed of fracture and informed she must wear c-collar at all times and aware call has been placed to the [employer] [facility] Patient and spouse informed patient will be transferred from [facility] to [facility] and she will be admitted to the [facility] to the neurosurgeon service under the care of Dr. Khalil Critical Care Narrative Aggregate critical care time was 30 minutes. Time to perform other separately billable procedures was not included in the critical care time. My time did not include minutes spent treating any other patients simultaneously or on activities that did not directly contribute to the patient's treatment. The services I provided to this patient were to treat and/or prevent clinically significant deterioration that could result in: Paralysis, I provided critical care services requiring my management, as noted below: Chart data review, documentation time, medication orders and management, vital sign assessments/reviewing monitor data, ordering and reviewing lab tests, ordering and interpreting/reviewing x-rays and diagnostic studies, care of the patient and discussion of the patient with the admitting physicians. Physician Communication Physician Communication call placed to NS Dr Khalil --- admit to [facility] to Dr Khalil Diagnosis Primary Impression: Dens fracture Qualified Codes: S12.100A - Unspecified displaced fracture of second cervical vertebra, initial encounter for closed fracture Additional Impressions: Closed C1 fracture Qualified Codes: S12.091A - Other nondisplaced fracture of first cervical vertebra, initial encounter for closed fracture MARIA LUISA (acute kidney injury) Admitting Information Admitting Physician Requests: Admit Charlee Hess MD May 22, 2017 02:51
[2017-05-22] MEDS ORDERED: VENL75TA PO (02:57)
[2017-05-22] MEDS ORDERED: OXYC1TAB36 PO (02:57)
[2017-05-22] MEDS ORDERED: KETOROLAC TROMETHAMINE 60 MG/2 ML (IM) VIAL IM ONE (03:00)
[2017-05-22] MEDS ORDERED: ORPHENADRINE INJ 60 MG/2 ML AMP IM ONE (03:00)
--- NOTE | 2017-05-22 03:14 | RADRPT ---
EXAM DATE/TIME: 05/22/2017 03:02 [facility] COMPARISON: CT BRAIN W/O CONTRAST, April 29, 2017, 4:24. INDICATIONS : Frequent falls. Most recent last night. RADIATION DOSE: 66.33 CTDIvol (mGy) MEDICAL HISTORY : Lupus. Hypertension. fibromyalgia, migraine SURGICAL HISTORY : None. ENCOUNTER: Initial ACUITY: 1 day PAIN SCALE: 10/10 LOCATION: cranial TECHNIQUE: Multiple contiguous axial images were obtained of the head. Using automated exposure control and adj ustment of the mA and/or kV according to patient size, radiation dose was kept as low as reasonably a chievable to obtain optimal diagnostic quality images. DICOM format image data is available electro nically for review and comparison. FINDINGS: There is no evidence for intracranial hemorrhage, mass effect, mass lesions, edema, or extra-axial fl uid collections. The visualized bony structures appear intact. The ventricles are normal size for t he patient's age. There are no signs of acute infarction for technique. CONCLUSION: Unremarkable study. Alexander Figueroa MD on May 22, 2017 at 3:11 Board Certified Radiologist. This report was verified electronically.
--- NOTE | 2017-05-22 03:41 | RADRPT ---
EXAM DATE/TIME: 05/22/2017 03:02 [facility] COMPARISON: CT CERVICAL SPINE W/O CONTRAST, April 29, 2017, 4:24. INDICATIONS : Frequent falls. Most recent last night RADIATION DOSE: 26.26 CTDIvol (mGy) MEDICAL HISTORY : Hypertension. Lupus. migrane, fybromyalgia SURGICAL HISTORY : None. ENCOUNTER: Initial ACUITY: 1 day PAIN SCALE: 10/10 LOCATION: neck TECHNIQUE: Volumetric scanning of the cervical spine was performed. Multiplanar reconstructions i n the sagittal, coronal and oblique axial planes were performed. Using automated exposure control a nd adjustment of the mA and/or kV according to patient size, radiation dose was kept as low as reason ably achievable to obtain optimal diagnostic quality images. DICOM format image data is available e lectronically for review and comparison. FINDINGS: There is a fracture of the dens with approximately 3 mm separation of the fracture fragments and slig ht angulation dorsally. There is no compromise to the thecal sac or spinal cord at this level. There is also fracture of the anterior portion of the arch of C1 and these findings were not present previo usly. There is superimposed pannus formation and chronic degenerative change at this level the calcif ications identified anteriorly chronic in nature. Degenerative changes are again seen with slight lucila ral foraminal compromise at multiple levels and no appreciable thecal sac stenosis is seen. There is steplike degenerative anterior subluxation from C3-C6. CONCLUSION: Fracture of dens and anterior arch of C1 not present previously without any significant t hecal sac stenosis. Alexander Figueroa MD on May 22, 2017 at 3:33 Board Certified Radiologist. This report was verified electronically.
[2017-05-22 04:56] LABS: BASOPHIL % 0.3 % (0.0-2.0); EOSINOPHIL # 0.3 TH/MM3 (0-0.4); EOSINOPHIL % 4.2 % (0.0-4.0); HEMATOCRIT 35.1 % (35.0-46.0); HEMOGLOBIN 11.3 GM/DL (11.6-15.3); LYMPH % 27.1 % (9.0-44.0); LYMPHOCYTE # 2.2 TH/MM3 (1.0-4.8); MEAN CELL VOLUME 87.1 FL (80.0-100.0); MEAN CORPUSCULAR HEMOGLOBIN 28.1 PG (27.0-34.0); MEAN CORPUSCULAR HGB CONC 32.3 % (32.0-36.0); MEAN PLATELET VOLUME 7.4 FL (7.0-11.0); MONO % 6.4 % (0.0-8.0); MONOCYTE # 0.5 TH/MM3 (0-0.9); PLATELET COUNT 187 TH/MM3 (150-450); RED BLOOD COUNT 4.03 MIL/MM3 (4.00-5.30); RED CELL DISTRIBUTION WIDTH 14.4 % (11.6-17.2)
[2017-05-22 05:08] LABS: BICARBONATE 26.2 MEQ/L (21.0-32.0); CALCIUM 8.4 MG/DL (8.5-10.1)
[2017-05-22 05:12] LABS: CREATININE 1.6 MG/DL (0.50-1.00)
[2017-05-22] MEDS ORDERED: LABETALOL HCL 100 MG/20 ML VIAL IV PUSH PRN (06:15)
[2017-05-22] MEDS ORDERED: oxyCODONE/ACETAMINOPHEN 10 MG/325 MG TAB PO PRN (06:15)
[2017-05-22] MEDS ORDERED: RESP: ALBUTEROL 2.5 MG/3 ML NEB (PRN) NEB (06:15)
[2017-05-22] MEDS ORDERED: SENNOSIDES 8.6 MG TAB PO PRN (06:15)
[2017-05-22] MEDS ORDERED: MAGNESIUM SULFATE INJ 2 GM in SODIUM CHLORIDE 0.9% INJ 100 ML IV PRN (06:15)
[2017-05-22] MEDS ORDERED: ZOLPIDEM TARTRATE 5 MG TAB PO PRN (06:15)
[2017-05-22] MEDS ORDERED: niCARdipine INJ 25 MG in SODIUM CHLOR 0.9% 250 ML INJ 240 ML IV PRN (06:15)
[2017-05-22] MEDS ORDERED: SODIUM CHLORIDE 0.9% FLUSH 10 ML FLUSH IV FLUSH PRN (06:15)
[2017-05-22] MEDS ORDERED: PROMETHAZINE INJ 25 MG/ML VIAL IM PRN (06:15)
[2017-05-22] MEDS ORDERED: MAGNESIUM HYDROXIDE SUSP 30 ML CUP PO PRN (06:15)
[2017-05-22] MEDS ORDERED: NS + KCL 20 MEQ INJ 1,000 ML IV SCH (06:15)
[2017-05-22] MEDS ORDERED: POTASSIUM CHLOR 20 MEQ PREMIX 100 ML IV PRN (06:15)
[2017-05-22] MEDS ORDERED: ACETAMINOPHEN 325 MG TAB PO PRN (06:15)
[2017-05-22] MEDS ORDERED: CALCIUM GLUCONATE INJ 1 GM in SODIUM CHLORIDE 0.9% INJ 100 ML IV PRN (06:15)
[2017-05-22] MEDS ORDERED: MENTHOL LOZENGE BUCCAL PRN (06:15)
[2017-05-22] MEDS: FUROSEMIDE 40 MG TAB PO SCH ×2 (06:38→08:57)
--- NOTE | 2017-05-22 08:46 | EKG ---
Date Performed: 05/22/2017 Time Performed: 04:14:41 PTAGE: 67 years EKG: SINUS BRADYCARDIA BORDERLINE ECG PREVIOUS TRACING : 12/12/2015 18.29 Compared to previous tracing, QRS voltage has increased dif fusely. DOCTOR: Heriberto Roberto Interpretating Date/Time 05/22/2017 08:45:40
[2017-05-22] MEDS: SODIUM CHLORIDE 0.9% FLUSH 10 ML FLUSH IV FLUSH SCH ×2 (08:56→20:28)
[2017-05-22] MEDS: METOPROLOL TARTRATE 25 MG TAB PO SCH ×2 (09:13→20:26)
[2017-05-22] MEDS: BACLOFEN 10 MG TAB PO SCH ×3 (09:13→17:55)
[2017-05-22] MEDS: POTASSIUM CHLORIDE 10 MEQ CONTROLLED RELEASE TAB PO SCH ×2 (09:14→20:26)
[2017-05-22] MEDS: PANTOPRAZOLE SOD 40 MG DELAYED RELEASE TAB PO SCH (09:14)
[2017-05-22] MEDS: DOCUSATE SODIUM 50 MG/SENNA 8.6 MG TAB PO SCH ×2 (09:14→20:26)
[2017-05-22] MEDS ORDERED: LIDOCAINE 1%/EPINEPHrine 1:100,000 SOLN 20 ML VIAL OTHER ONE (09:15)
[2017-05-22] MEDS ORDERED: VERAPAMIL HCL 5 MG/2 ML VIAL IV PUSH ONE (09:15)
[2017-05-22] MEDS ORDERED: MORPHINE SULFATE 10 MG/ML INJ IV ONE (09:15)
[2017-05-22] MEDS: HYDROXYCHLOROQUINE SULFATE 200 MG TAB PO SCH (09:24)
[2017-05-22] MEDS: VENLAFAXINE HCL 75 MG TAB PO SCH ×2 (09:24→20:27)
[2017-05-22] MEDS ORDERED: MIDAZOLAM HCL 5 MG/ML VIAL (1 ML) IV SCH (09:30)
[2017-05-22] MEDS ORDERED: MORPHINE SULFATE 2 MG/ML INJ IV SCH (09:45)
--- NOTE | 2017-05-22 10:32 | MH ---
cc: CHASE PEPPER M.D. DATE OF ADMISSION: 05/22/2017 ADMITTING DIAGNOSIS: C1 anterior arch fracture / C2 odontoid fracture. HISTORY OF PRESENT ILLNESS: 67-year-old obese female who apparently two nights ago was on the toilet commode and she fell asleep and fell forward and struck her head on the ground and noticed severe neck pain radiating to the occipital aspect and the temporofrontal aspect. She did not seek immediate attention but early this morning the pain was intractable despite the use of pain medications and muscle relaxants which she takes on a regular basis. She presented to the [facility] Emergency Room and workup included CT scan of the head, which was negative, and CT of the cervical spine reveals a C1 anterior arch fracture with 3 mm separation as well as a C2 type 2 odontoid fracture with slight posterior angulation. She has extensive multilevel degenerative changes with severe kyphosis and subluxation at C3-4 and C4-5 levels in particular. She relates chronic neck pain and also suffers from fibromyalgia which has affected her balance and she has fallen on multiple occasions because of this. She uses a walker at home. She was placed in a [place] collar and transferred to [facility] for further management. She denies any numbness or paresthesias in the upper or lower extremities or any incontinence. PAST MEDICAL HISTORY: 1. Chronic neck pain and she is seeing a pain specialist and a landing gear mechanic for this as well as her fibromyalgia. 2. COPD. 3. Hypertension. 4. Chronic kidney disease. 5. Anxiety. 6. Depression. 7. Lupus. 8. Rheumatoid arthritis. 9. Hyperlipidemia. 10. Right knee arthroplasty. 11. Left elbow fracture in 2017, which was not repaired surgically and she has a chronic deformity. 12. Bilateral shoulder pain, which is chronic. 13. Hemorrhoidectomy. SOCIAL HISTORY: She is , although relates her has dementia. Denies any alcohol or tobacco use. MEDICATIONS: 1. Baclofen 10 milligrams three times a day. 2. Bupropion 150 milligrams at bedtime. 3. Lasix 80 milligrams daily. 4. Hydroxychloroquine 200 milligrams daily. 5. Ibuprofen 600 milligrams q. 6 hours PRN. 6. Latanoprost ophthalmic drops at bedtime. 7. Metoprolol 25 milligrams twice a day. 8. Percocet 10/325 one q. 8 hours PRN. 9. Potassium chloride 10 milliequivalents twice a day. 10. Ropinirole 4 milligrams twice a day. 11. Tizanidine 4 milligrams twice a day PRN 12. Effexor 75 milligrams twice a day. ALLERGIES: 1. SULFA. 2. CEPHALEXIN. 3. GABAPENTIN. 4. PENICILLIN. FAMILY HISTORY: Unremarkable. REVIEW OF SYSTEMS: Severe neck pain with associated occipital headaches on top of chronic neck pain. Denies numbness or paresthesias in the upper extremities. Complains of unsteadiness in her gait with frequent falls. No fevers or chills. No chest pain or palpitations. Denies shortness of breath. No nausea or vomiting. No abdominal pain. Denies any incontinence. Complains of diffuse arthralgias in particular in the shoulders and neck. No double vision. No blurred vision. Complains of chronic depression and anxiety. No heat or cold intolerance. She has bruises all over and in the right flank and lower extremities from chronic falls but states that she does not bleed easily. Otherwise all other review of systems is negative. PHYSICAL EXAMINATION: GENERAL: She is an elderly obese female who is laying in bed in no acute distress with a cervical collar in place. HEAD: No ovalle's or raccoon's sign, although she has a forehead small abrasion from the fall. NECK: The neck is maintained in a [place] collar with trachea in the midline and no lymphadenopathy or jugular venous distention. HEART: Regular rate and rhythm without murmurs. Normal S1-S2. CHEST: Good sensation bilaterally. ABDOMEN: Abdomen soft and nontender. No hepatosplenomegaly. EXTREMITIES: She has chronic left upper extremity deformity in the elbow from previous fracture, which is not new. She has ecchymosis, which is chronic on the lower extremities. No significant edema. SKIN: Forehead abrasion and ecchymosis in the lower extremities of various stages along with a right subacute flank area ecchymosis in the buttock area. NEUROLOGICAL EXAMINATION: She is awake, alert, and she is oriented times three. Pupils are equal and reactive. Extraocular muscles are intact. Face is symmetric. Tongue is midline. She is missing several lower teeth in the upper jaw. She moves all four extremities with relatively good strength. Negative Babinski. Light touch sensation is intact. Speech is fluent. LABORATORY STUDIES: White blood cell count 8.0, hemoglobin 11.3, platelet count 187,000. PT 10.0, INR 1.0, PTT 24.9. Sodium 140, potassium 3.8, BUN 43, creatinine 1.6, glucose 84. IMPRESSION: 1. C1 anterior arch slightly displaced fracture along with C2 type 2 odontoid fracture with slight posterior dens displacement. She also has severe kyphosis with multilevel degenerative disc disease and anterior subluxation of C3-4 and C4-5 levels, which appear to be within physiologic range. 2. COPD. 3. Unregulated hypertension. 4. Chronic pain syndrome with fibromyalgia and associated unsteady gait and frequent falls despite the use of a walker. 5. Chronic kidney disease. 6. Anxiety/depression. PLAN: I have had a lengthy discussion with the patient and recommended placement of a halo to see if her fractures will heal. She related to me that she is not sure she will do well with a halo and also inquired about other options, in particular, surgical options. I informed her that she would not be a candidate for anterior C2 odontoid screw placement given the severe kyphosis as well as the C1 fracture. A posterior C1-2 fusion will also not provide her with adequate support given the fractures involving both levels and if surgical intervention is undertaken, it would involve a posterior occipitocervical fusion and stabilization and either a collar or preferably a halo placement which would allow the best chance of healing. She wants to further discuss her options with her son who should be coming in tonight before she agrees to any intervention. In the meantime, we will maintain her on bed rest with a hard cervical collar. Her hypertension will be regulated along with pain control and gastrointestinal stress ulcer prophylaxis and mechanical DVT prophylaxis. Will also consult the medical team for assistance in her medical management. Discussed with nursing staff. MD BJ Frazier/STEPHANY /9:24 AM /9:53 AM
[2017-05-22] MEDS: DIAZEPAM 5 MG TAB PO PRN ×2 (11:48→20:27)
[2017-05-22] MEDS: MORPHINE SULFATE 2 MG/ML INJ IV PUSH PRN ×4 (11:54→22:42)
--- NOTE | 2017-05-22 16:29 | PD.CONS ---
HPI Service [facility] Consult Requested By Dr. Khalil -neurosurgery service Reason for Consult Medical management with multiple medical problems Primary Care Physician Non-Staff Diagnoses: History of Present Illness Patient is a very pleasant 67-year-old female with known history of fibromyalgia , rheumatoid arthritis, hypertension, depression, chronic pain followed by a shipyard painter helper Dr. Jazmin Mancilla, chronic kidney insufficiency followed by Dr. Myrno Piña as an outpatient Apparently patient fell asleep while using the commode night of 05/20 and fell over and had hit her head . Patient had pain on the neck took her usual Percocet for her chronic pain/fibromyalgia with no relief. This morning complaining of increased And was brought to [facility] where she was found to have a C2 fracture. Patient denies any tingling sensation on both arms. Moves all extremities equally denies any pain cu and trrently. Although patient has chronic pain involving shoulders arms generalize basically still very active and independent with her ADLs. Family this has happened once before for she fell asleep at the commode and she has some old ecchymosis on the left buttocks on exam Review of Systems Constitutional: DENIES: Diaphoretic episodes, Fatigue, Fever, Weight gain, Weight loss, Chills, Dizziness, Change in appetite, Night Sweats Endocrine: DENIES: Abnorml menstrual pattern, Heat/cold intolerance, Polydipsia , Polyuria, Polyphagia Eyes: DENIES: Blurred vision, Diplopia, Eye inflammation, Eye pain, Vision loss , Photosensitivity, Double Vision Ears, nose, mouth, throat: DENIES: Tinnitus, Hearing loss, Vertigo, Nasal discharge, Oral lesions, Throat pain, Hoarseness, Ear Pain, Running Nose, Epistaxis, Sinus Pain, Toothache, Odynophagia Respiratory: DENIES: Apneas, Cough, Snoring, Wheezing, Hemoptysis, Sputum production, Shortness of breath Cardiovascular: DENIES: Chest pain, Palpitations, Syncope, Dyspnea on Exertion , PND, Lower Extremity Edema, Orthopnea, Claudication Gastrointestinal: DENIES: Abdominal pain, Black stools, Bloody stools, Constipation, Diarrhea, Nausea, Vomiting, Difficulty Swallowing, Anorexia Genitourinary: DENIES: Abnormal vaginal bleeding, Dysmenorrhea, Dyspareunia, Sexual dysfunction, Urinary frequency, Urinary incontinence, Urgency, Hematuria , Dysuria, Nocturia, Vaginal discharge Musculoskeletal: COMPLAINS OF: Joint pain, Muscle aches, Back pain Integumentary: DENIES: Abnormal pigmentation, Pruritus, Rash, Nail changes, Breast masses, Breast skin changes, Nipple discharge Hematologic/lymphatic: DENIES: Bruising, Lymphadenopathy Immunologic/allergic: DENIES: Eczema, Urticaria Neurologic: DENIES: Abnormal gait, Headache, Localized weakness, Paresthesias, Seizures, Speech Problems, Tremor, Poor Balance Psychiatric: COMPLAINS OF: Depression (history of depression), DENIES: Anxiety , Confusion, Mood changes, Hallucinations, Agitation, Suicidal Ideation, Homicidal Ideation, Delusions Past Family Social History Allergies: Coded Allergies: cephalexin (Unverified Allergy, Severe, ANAPHYLAXIS, 05/22/17) cat dander (Unverified Allergy, Intermediate, rhinitis, 05/22/17) grass pollen (Unverified Allergy, Intermediate, "Pollen Allergy" per patient report, 05/22/17) house dust (Unverified Allergy, Intermediate, environmental allergy, 05/22) mold (Unverified Allergy, Intermediate, environmental , 05/22/17) pregabalin (Unverified Allergy, Intermediate, rash, 05/22/17) Sulfa (Sulfonamide Antibiotics) (Unverified Allergy, Mild, oral sores, ) penicillin G (Unverified Allergy, Mild, itching, 05/22/17) gabapentin (Unverified Adverse Reaction, Mild, falls, 05/22/17) Past Medical History Depression Hypertension Chronic pain Rheumatoid arthritis/fibromyalgia Chronic kidney insufficiency Restless leg syndrome Past Surgical History Right total knee arthroplasty last June 2016 Reported Medications As an outpatient was on. vitamin B-12, Excedrin Migraine when necessary for headache, iron sulfate daily, hydroxychloroquine, hydroxyzine bedtime Latanoprost eyedrops 1 drop daily Potassium chloride 10 mEq daily Mirapex 1.5 mg daily rEQUIPt 4 mg daily Venlafaxine 75 mg daily Hydrocodone 10/325 one tab 3 times a day when necessary for pain Zanaflex Effexor Active Ordered Medications See EMR Family History Noncontributory Social History No history is smoking Very occasional alcohol use "wine" Physical Exam Vital Signs Vital Signs Date Time Temp Pulse Resp B/P (MAP) Pulse Ox O2 Delivery O2 Flow Rate FiO2 05/22/17 14:00 84 05/22/17 12:00 98.5 71 17 145/66 (92) 92 05/22/17 12:00 67 05/22/17 11:00 98.2 67 20 173/74 (107) 97 05/22/17 10:00 58 05/22/17 08:00 66 05/22/17 07:37 05/22/17 06:12 72 18 184/94 (124) 97 Room Air 05/22/17 04:47 66 16 171/88 (115) 97 Room Air 05/22/17 02:58 16 95 Room Air 05/22/17 02:34 98.0 63 18 153/67 (95) 98 Physical Exam GENERAL: This is a well-nourished, well-developed patient, in no apparent distress. Very feisty and interactive SKIN: No rashes, ecchymoses or lesions. Cool and dry. HEAD: Atraumatic. Normocephalic. No temporal or scalp tenderness. EYES: Pupils equal round and reactive. Extraocular motions intact. No scleral icterus. No injection or drainage. ENT: Nose without bleeding, purulent drainage or septal hematoma. Throat without erythema, tonsillar hypertrophy or exudate. Uvula midline. Airway patent. NECK: Collar in place CARDIOVASCULAR: Regular rate and rhythm without murmurs, gallops, or rubs. RESPIRATORY: Clear to auscultation. Breath sounds equal bilaterally. No wheezes , rales, or rhonchi. GASTROINTESTINAL: Abdomen soft, non-tender, nondistended.. No guarding. MUSCULOSKELETAL: Extremities without clubbing, cyanosis, or edema. No joint tenderness, effusion, or edema noted. No calf tenderness. Negative Homans sign bilaterally. Good range of motion both arms NEUROLOGICAL: Awake and alert. Cranial nerves II through XII intact. Examination of the low back area and right buttock shows some old ecchymosis ( - per patient from a fall 3-4 days ago) motor oliver- Lower extremities: both legs up in the air with no difficulty, bend knees with no difficulty, both feet with good range of motion both UE with no difficulty 5/5 strength, no limitation in ROM of shoulders, good hand oil analyst no sensory deficits gait testing deferred Laboratory Laboratory Tests Test 05/22/17 04:19 White Blood Count 8.0 Red Blood Count 4.03 Hemoglobin 11.3 Hematocrit 35.1 Mean Corpuscular Volume 87.1 Mean Corpuscular Hemoglobin 28.1 Mean Corpuscular Hemoglobin Concent 32.3 Red Cell Distribution Width 14.4 Platelet Count 187 Mean Platelet Volume 7.4 Neutrophils (%) (Auto) 62.0 Lymphocytes (%) (Auto) 27.1 Monocytes (%) (Auto) 6.4 Eosinophils (%) (Auto) 4.2 Basophils (%) (Auto) 0.3 Neutrophils # (Auto) 5.0 Lymphocytes # (Auto) 2.2 Monocytes # (Auto) 0.5 Eosinophils # (Auto) 0.3 Basophils # (Auto) 0.0 CBC Comment DIFF FINAL Differential Comment Prothrombin Time 10.0 Prothromb Time International Ratio 1.0 Activated Partial Thromboplast Time 24.9 Blood Urea Nitrogen 43 Creatinine 1.60 Random Glucose 84 Calcium Level 8.4 Sodium Level 140 Potassium Level 3.8 Chloride Level 104 Carbon Dioxide Level 26.2 Anion Gap 10 Estimat Glomerular Filtration Rate 32 Result Diagram: 05/22/17 0419 05/22/17 0419 Imaging Last Impressions Head CT 05/22/17 0000 Signed Impressions: Service Date/Time: Monday, May 22, 2017 03:02 - CONCLUSION: Unremarkable study. Alexander Figueroa MD Cervical Spine CT 05/22/17 0000 Signed Impressions: Service Date/Time: Monday, May 22, 2017 03:02 - CONCLUSION: Fracture of dens and anterior arch of C1 not present previously without any significant thecal sac stenosis. Alexander Figueroa MD Assessment and Plan Assessment and Plan Patient is a 67-year-old female admitted under neurosurgical services Status post fall with a C1 fracture. Neurosurgery following. When necessary pain meds per primary service Hypertension. History of chronic kidney insufficiency Continue on Lopressor twice a day. I will decrease the Lasix to 40 mg daily which is her usual home dose.- confirmed with her Continue potassIUm chloride Avoid NSAIDs with kidney insufficiency gentle fluids NS 42 cc/hr CMP in am History of depression - she appears manic . continue on Effexor. History of chronic pain/fibromyalgia/arthritis.. As outpatient was on Lortab 10 one tab 3 times a day followed by a pain management. Currently in-house she is on IV when necessary pain meds per primary service History of restless leg syndrome. Continue on Requip Teds/ SCDs for DVT prophylaxis. Thank you for this consult we'll follow patient in-house with you Discussed Condition With Discussed with patient and family at bedside Phuc Quiroz MD May 22, 2017 16:29
[2017-05-22] MEDS: DEXT 5%-NACL 0.9% 1000 ML INJ 1,000 ML IV SCH (17:56)
[2017-05-22] MEDS: buPROPion HCL 150 MG SUSTAINED RELEASE TAB PO SCH (20:27)
[2017-05-22] MEDS: LATANOPROST 0.005% OPHT SOLN 2.5 ML BTL EACH EYE SCH (21:00)
[2017-05-23] VITALS (14 sets, daily range): BP systolic 114–165; BP diastolic 61–75; PULSE 58–89; RESP 10–22; TEMP 97.5–98.1; O2SAT 92–100
[2017-05-23] MEDS: MORPHINE SULFATE 2 MG/ML INJ IV PUSH PRN ×3 (01:25→12:18)
[2017-05-23] MEDS: ONDANSETRON HCL 4 MG/2 ML VIAL IV PUSH PRN (01:26)
[2017-05-23 04:36] LABS: ALBUMIN 2.9 GM/DL (3.4-5.0); ALT (GPT) 19 U/L (10-53); AST (GOT) 18 U/L (15-37); BICARBONATE 31.6 MEQ/L (21.0-32.0); BLOOD UREA NITROGEN 35 MG/DL (7-18); CALCIUM 7.9 MG/DL (8.5-10.1); CHLORIDE 108 MEQ/L (98-107); CREATININE 1.23 MG/DL (0.50-1.00); GLOMERULAR FILTRATION RATE 43 ML/MIN (>89); GLUCOSE,RANDOM 101 MG/DL (74-106); MAGNESIUM 2.4 MG/DL (1.5-2.5); SODIUM (NA) 143 MEQ/L (136-145)
[2017-05-23 04:37] LABS: ALKALINE PHOSPHATASE 120 U/L (45-117); TOTAL BILIRUBIN ADULT 0.3 MG/DL (0.2-1.0); TOTAL PROTEIN 6.3 GM/DL (6.4-8.2)
[2017-05-23] MEDS: oxyCODONE/ACETAMINOPHEN 10 MG/325 MG TAB PO PRN ×2 (05:50→19:47)
[2017-05-23] MEDS: SODIUM CHLORIDE 0.9% FLUSH 10 ML FLUSH IV FLUSH SCH ×2 (08:59→21:00)
[2017-05-23] MEDS: METOPROLOL TARTRATE 25 MG TAB PO SCH (09:00)
[2017-05-23] MEDS: DOCUSATE SODIUM 50 MG/SENNA 8.6 MG TAB PO SCH ×2 (09:04→21:02)
[2017-05-23] MEDS: FUROSEMIDE 40 MG TAB PO SCH (09:04)
[2017-05-23] MEDS: HYDROXYCHLOROQUINE SULFATE 200 MG TAB PO SCH (09:05)
[2017-05-23] MEDS: VENLAFAXINE HCL 75 MG TAB PO SCH ×2 (09:05→21:02)
[2017-05-23] MEDS: BACLOFEN 10 MG TAB PO SCH ×3 (09:05→17:39)
[2017-05-23] MEDS: POTASSIUM CHLORIDE 10 MEQ CONTROLLED RELEASE TAB PO SCH ×2 (09:05→21:02)
[2017-05-23] MEDS: PANTOPRAZOLE SOD 40 MG DELAYED RELEASE TAB PO SCH (09:05)
--- NOTE | 2017-05-23 09:22 | HHI.PR ---
Subjective Remarks Follow-up C1 fracture, hypertension. The patient is complaining of discomfort from the cervical collar. An ice chest pain or dyspnea. States that her restless legs syndrome has really been bothering her overnight. Objective Vitals Vital Signs Date Time Temp Pulse Resp B/P (MAP) Pulse Ox O2 Delivery O2 Flow Rate FiO2 05/23/17 07:00 78 05/23/17 07:00 96 Nasal Cannula 2.00 05/23/17 06:00 58 05/23/17 04:00 98.0 83 15 114/69 (84) 95 05/23/17 04:00 59 05/23/17 02:00 75 05/23/17 00:00 87 05/23/17 00:00 98.1 87 20 115/66 (82) 100 05/22/17 23:00 80 05/22/17 22:00 64 05/22/17 20:31 16 05/22/17 20:00 Room Air 05/22/17 20:00 98.0 77 19 148/69 (95) 97 05/22/17 20:00 81 05/22/17 18:00 79 05/22/17 16:00 98.2 71 17 150/66 (94) 92 05/22/17 16:00 74 05/22/17 15:00 74 05/22/17 14:00 84 05/22/17 12:00 98.5 71 17 145/66 (92) 92 05/22/17 12:00 67 05/22/17 11:00 98.2 67 20 173/74 (107) 97 05/22/17 10:00 58 I/O 05/22/17 05/22/17 05/22/17 05/23/17 05/23/17 05/23/17 07:00 15:00 23:00 07:00 15:00 23:00 Intake Total 0 ml 900 ml 800 ml 450 ml Output Total 0 ml 0 ml Balance 0 ml 900 ml 800 ml 450 ml Intake Oral 0 ml 900 ml 800 ml 450 ml Output Stool Total 0 ml 0 ml # Voids 4 6 3 Result Diagram: 05/22/17 0419 05/23/17 0336 Imaging Last Impressions Head CT 05/22/17 0000 Signed Impressions: Service Date/Time: Monday, May 22, 2017 03:02 - CONCLUSION: Unremarkable study. Alexander Figueroa MD Cervical Spine CT 05/22/17 0000 Signed Impressions: Service Date/Time: Monday, May 22, 2017 03:02 - CONCLUSION: Fracture of dens and anterior arch of C1 not present previously without any significant thecal sac stenosis. Alexander Figueroa MD Objective Remarks General: Elderly female in no acute distress. In cervical collar. Heart: Regular rate and rhythm. No murmur. Lungs: Clear to auscultation bilaterally. No wheezes, rales, or rhonchi. Breathing is nonlabored. Abdomen: Soft, nontender, nondistended. Extremities: No lower extremity edema. Psych: Alert and oriented. Procedures none Urinary Catheter: No Vascular Central Line Catheter: No A/P Assessment and Plan 1. Status post fall with C1 fracture: Management per neurosurgery. Continue pain control. Will likely require surgical intervention, halo placement. 2. Hypertension: Lopressor secondary to bradycardia. 3. Chronic kidney disease: Monitor BUN and creatinine. Continue gentle IV fluid hydration. Lasix decreased. Avoid NSAIDs. 4. History of depression: Continue Effexor. 5. Restless leg syndrome: Continue Requip. 6. Chronic pain, fibromyalgia, arthritis: Patient takes Lortab 10 as outpatient. She is followed by pain management. Currently on IV pain medication per neurosurgery. 7. DVT prophylaxis: GIRISH Alvarado. Zev Salcedo MD May 23, 2017 09:22
--- NOTE | 2017-05-23 10:14 | HHI.NSPN ---
(Aldair Mcclain) History Chief Complaint: Neck pain, occipital head pain. (Aldair Mcclain) Interval History 67-year-old obese female who apparently two nights ago was on the toilet commode and she fell asleep and fell forward and struck her head on the ground and noticed severe neck pain radiating to the occipital aspect and the temporofrontal aspect. She did not seek immediate attention but early this morning the pain was intractable despite the use of pain medications and muscle relaxants which she takes on a regular basis. She presented to the [facility] Emergency Room and workup included CT scan of the head, which was negative, and CT of the cervical spine reveals a C1 anterior arch fracture with 3 mm separation as well as a C2 type 2 odontoid fracture with slight posterior angulation. She has extensive multilevel degenerative changes with severe kyphosis and subluxation at C3-4 and C4-5 levels in particular. She relates chronic neck pain and also suffers from fibromyalgia which has affected her balance and she has fallen on multiple occasions because of this. She uses a walker at home. She was placed in a [place] collar and transferred to [facility] for further management. She denies any numbness or paresthesias in the upper or lower extremities or any incontinence. 05/23/17: Pt awake and alert. Complains of neck pain and cervical collar irritation. No radiculopathy in UEs. No paresthesias in UEs. [place] cervical collar in place but complains its irritating the back of her head. (Aldair Mcclain) Review of Systems General: Negative for: fever, chills, insomnia Respiratory: Negative for: shortness of breath, cough, sputum Cardiovascular: Negative for: chest pain Gastrointestinal: Negative for: nausea, vomitting, diarrhea, constipation ( Aladir Mcclain) Exam Results Vital Signs Date Time Temp Pulse Resp B/P (MAP) Pulse Ox O2 Delivery O2 Flow Rate FiO2 05/23/17 10:00 75 05/23/17 08:00 97.9 22 131/62 (85) 96 05/23/17 07:00 Nasal Cannula 2.00 Intake and Output 05/23/17 05/23/17 05/24/17 08:00 16:00 00:00 Intake Total 450 ml Output Total 0 ml Balance 450 ml (Aldair Mcclain) Physical Examination General: Pt resting in bed, not appearing in any distress. When she goes to sleep she becomes bradycardic with hr in 40s. Eyes: Pupils equal. Resp: CTA bilaterally Heart: Bradycardia at times with HR in 40s. Improves when pt woken up. Abd: Soft positive bs Skin: No cyanosis or erythema. SCDs in place. Muscle: Moves all 4 extremities well, 5/5. [place] cervical collar in place. Neuro: Pt awakens to voice. Follows commands well. Speech clear and appropriate. Sensation intact in extremities to light touch. (Aldair Mcclain) Lab, Micro, Other Results Last Impressions Head CT 05/22/17 0000 Signed Impressions: Service Date/Time: Monday, May 22, 2017 03:02 - CONCLUSION: Unremarkable study. Alexander Figueroa MD Cervical Spine CT 05/22/17 0000 Signed Impressions: Service Date/Time: Monday, May 22, 2017 03:02 - CONCLUSION: Fracture of dens and anterior arch of C1 not present previously without any significant thecal sac stenosis. Alexander Figueroa MD Laboratory Tests Test 05/23/17 03:36 Blood Urea Nitrogen 35 MG/DL Creatinine 1.23 MG/DL Random Glucose 101 MG/DL Total Protein 6.3 GM/DL Albumin 2.9 GM/DL Calcium Level 7.9 MG/DL Magnesium Level 2.4 MG/DL Alkaline Phosphatase 120 U/L Aspartate Amino Transf (AST/SGOT) 18 U/L Alanine Aminotransferase (ALT/SGPT) 19 U/L Total Bilirubin 0.3 MG/DL Sodium Level 143 MEQ/L Potassium Level 3.7 MEQ/L Chloride Level 108 MEQ/L Carbon Dioxide Level 31.6 MEQ/L Anion Gap 3 MEQ/L Estimat Glomerular Filtration Rate 43 ML/MIN (Aldair Mcclain) Medical Decision Making Impression and Plan A: 67 y/o FM s/p C1 anterior arch slightly displaced fracture along with C2 type 2 odontoid fracture with slight posterior dens displacement. She also has severe kyphosis with multilevel degenerative disc disease and anterior subluxation of C3-4 and C4-5 levels, which appear to be within physiologic range. 2. COPD. 3. Unregulated hypertension. 4. Chronic pain syndrome with fibromyalgia and associated unsteady gait and frequent falls despite the use of a walker. 5. Chronic kidney disease. 6. Anxiety/depression. PLAN: Continue with cervical collar for now. Pts son is in but not at bedside currently and will meet with Dr. Khalil today to discuss treatment options. continue with pain control. Continue with DVT prophylaxis with SCDs. (Aldair Mcclain) Attending Statement The exam, history, and the medical decision-making described in the above note were completed with the assistance of the mid-level provider. I reviewed and agree with the findings presented. I attest that I had a [id number] encounter with the patient on the same day, and personally performed and documented my assessment and findings in the medical record. Stable examination with c-collar in place. She relates to me that after discussion with her son and she is leaning towards halo placement but wants to wait until tomorrow. Continue with present management and pain control. (Giuliano Khalil MD) Aldair Mcclain May 23, 2017 10:14 Giuliano Khalil MD May 23, 2017 14:03
[2017-05-23] MEDS: DEXT 5%-NACL 0.9% 1000 ML INJ 1,000 ML IV SCH ×2 (17:06→22:00)
[2017-05-23] MEDS: LATANOPROST 0.005% OPHT SOLN 2.5 ML BTL EACH EYE SCH (21:00)
[2017-05-23] MEDS: buPROPion HCL 150 MG SUSTAINED RELEASE TAB PO SCH (21:02)
[2017-05-24] VITALS (13 sets, daily range): BP systolic 121–173; BP diastolic 60–78; PULSE 67–95; RESP 14–21; TEMP 97.9–98.4; O2SAT 93–98
[2017-05-24] MEDS: MORPHINE SULFATE 2 MG/ML INJ IV PUSH PRN ×4 (02:58→20:44)
[2017-05-24] MEDS: DIAZEPAM 5 MG TAB PO PRN (04:23)
[2017-05-24 06:33] LABS: BICARBONATE 29.6 MEQ/L (21.0-32.0); CALCIUM 8.7 MG/DL (8.5-10.1); CREATININE 1.01 MG/DL (0.50-1.00)
[2017-05-24] MEDS: LACTULOSE SYRUP 20 GM/30 ML CUP PO PRN (06:59)
--- NOTE | 2017-05-24 08:26 | HHI.PR ---
Subjective Remarks Follow up neck pain. Patient states that her pain is worse today. She reported numbness in her arms and legs that improved when she got out of bed and was sitting in the chair. She has a different cervical collar in place, and states that it is "a little" more comfortable. Objective Vitals Vital Signs Date Time Temp Pulse Resp B/P (MAP) Pulse Ox O2 Delivery O2 Flow Rate FiO2 05/24/17 06:00 95 05/24/17 04:00 81 05/24/17 04:00 17 159/70 (99) 93 05/24/17 02:00 90 05/24/17 00:00 83 05/24/17 00:00 18 168/78 (108) 96 05/23/17 22:00 68 05/23/17 20:00 97.5 72 16 165/75 (105) 92 05/23/17 20:00 89 05/23/17 19:00 99 Room Air 05/23/17 18:00 79 05/23/17 16:00 98.1 77 17 121/61 (81) 96 05/23/17 16:00 72 05/23/17 15:00 68 05/23/17 14:00 64 05/23/17 12:00 97.6 68 10 149/63 (91) 94 05/23/17 12:00 68 05/23/17 10:00 75 I/O 05/23/17 05/23/17 05/23/17 05/24/17 05/24/17 05/24/17 07:00 15:00 23:00 07:00 15:00 23:00 Intake Total 450 ml 1765 ml 665 ml Output Total 0 ml 1 ml 0 ml Balance 450 ml 1764 ml 665 ml Intake Oral 450 ml 800 ml 480 ml IV Total 965 ml 185 ml Output Stool Total 0 ml 1 ml 0 ml # Voids 3 5 1 Result Diagram: 05/22/17 0419 05/24/17 0525 Imaging Last Impressions Head CT 05/22/17 0000 Signed Impressions: Service Date/Time: Monday, May 22, 2017 03:02 - CONCLUSION: Unremarkable study. Alexander Figueroa MD Cervical Spine CT 05/22/17 0000 Signed Impressions: Service Date/Time: Monday, May 22, 2017 03:02 - CONCLUSION: Fracture of dens and anterior arch of C1 not present previously without any significant thecal sac stenosis. Alexander Figueroa MD Objective Remarks General: Elderly female in no acute distress. In cervical collar. Sitting up in a chair. Heart: Regular rate and rhythm. No murmur. Lungs: Clear to auscultation bilaterally. No wheezes, rales, or rhonchi. Breathing is nonlabored. Abdomen: Soft, nontender, nondistended. Extremities: No lower extremity edema. Psych: Alert and oriented. Procedures none Urinary Catheter: No Vascular Central Line Catheter: No A/P Assessment and Plan 1. Status post fall with C1 fracture: Management per neurosurgery. Increased pain overnight. Continue pain control. Surgery planned for today. 2. Hypertension: Lopressor on hold secondary to bradycardia. 3. Chronic kidney disease: Monitor BUN and creatinine. Continue gentle IV fluid hydration. Lasix decreased. Avoid NSAIDs. 4. History of depression: Continue Effexor. 5. Restless leg syndrome: Continue Requip. 6. Chronic pain, fibromyalgia, arthritis: Patient takes Lortab 10 as outpatient. She is followed by pain management. Currently on IV pain medication per neurosurgery. 7. DVT prophylaxis: GIRISH Alvarado. Zev Salcedo MD May 24, 2017 08:26
[2017-05-24] MEDS: POTASSIUM CHLORIDE 10 MEQ CONTROLLED RELEASE TAB PO SCH ×2 (09:00→20:42)
[2017-05-24] MEDS: PANTOPRAZOLE SOD 40 MG DELAYED RELEASE TAB PO SCH (09:00)
[2017-05-24] MEDS: FUROSEMIDE 40 MG TAB PO SCH (09:00)
[2017-05-24] MEDS: BACLOFEN 10 MG TAB PO SCH ×3 (09:00→17:50)
[2017-05-24] MEDS: DOCUSATE SODIUM 50 MG/SENNA 8.6 MG TAB PO SCH ×2 (09:00→20:41)
[2017-05-24] MEDS: HYDROXYCHLOROQUINE SULFATE 200 MG TAB PO SCH (09:00)
[2017-05-24] MEDS: SODIUM CHLORIDE 0.9% FLUSH 10 ML FLUSH IV FLUSH SCH ×2 (09:00→21:08)
[2017-05-24] MEDS: VENLAFAXINE HCL 75 MG TAB PO SCH ×2 (09:00→21:08)
[2017-05-24] MEDS: oxyCODONE/ACETAMINOPHEN 10 MG/325 MG TAB PO PRN ×3 (09:50→20:42)
[2017-05-24] MEDS ORDERED: LIDOCAINE 2%/EPINEPHrine 1:100,000 20ML MDV INFIL ONE (10:00)
[2017-05-24] MEDS ORDERED: MIDAZOLAM HCL 5 MG/ML VIAL (1 ML) IV PUSH ONE (10:15)
[2017-05-24] MEDS ORDERED: MORPHINE SULFATE 2 MG/ML INJ IV PUSH ONE (10:15)
--- NOTE | 2017-05-24 10:58 | HHI.NSPN ---
(Aldair Mcclain) History Chief Complaint: Neck pain, occipital head pain. (Aldair Mcclain) Interval History 67-year-old obese female who apparently two nights ago was on the toilet commode and she fell asleep and fell forward and struck her head on the ground and noticed severe neck pain radiating to the occipital aspect and the temporofrontal aspect. She did not seek immediate attention but early this morning the pain was intractable despite the use of pain medications and muscle relaxants which she takes on a regular basis. She presented to the [facility] Emergency Room and workup included CT scan of the head, which was negative, and CT of the cervical spine reveals a C1 anterior arch fracture with 3 mm separation as well as a C2 type 2 odontoid fracture with slight posterior angulation. She has extensive multilevel degenerative changes with severe kyphosis and subluxation at C3-4 and C4-5 levels in particular. She relates chronic neck pain and also suffers from fibromyalgia which has affected her balance and she has fallen on multiple occasions because of this. She uses a walker at home. She was placed in a [place] collar and transferred to [facility] for further management. She denies any numbness or paresthesias in the upper or lower extremities or any incontinence. 05/23/17: Pt awake and alert. Complains of neck pain and cervical collar irritation. No radiculopathy in UEs. No paresthesias in UEs. [place] cervical collar in place but complains its irritating the back of her head. 05/24/17: Patient awake and alert sitting up in a chair. Complains of neck pain and numbness in her hands. She also complains of pain in her left foot with numbness in the anterior left leg. (Aldair Mcclain) Review of Systems General: Negative for: fever, chills, insomnia Respiratory: Negative for: shortness of breath, cough, sputum Cardiovascular: Negative for: chest pain Gastrointestinal: Negative for: nausea, vomitting, diarrhea, constipation ( Aldair Mcclain) Exam Results Vital Signs Date Time Temp Pulse Resp B/P (MAP) Pulse Ox O2 Delivery O2 Flow Rate FiO2 05/24/17 10:00 86 05/24/17 08:00 98.4 19 158/74 (102) 94 05/24/17 07:00 Room Air 05/23/17 07:00 2.00 Intake and Output 05/24/17 05/24/17 05/25/17 08:00 16:00 00:00 Intake Total 665 ml Output Total 0 ml Balance 665 ml (Aldair Mcclain) Physical Examination General: Pt resting in bed, not appearing in any distress. Eyes: Pupils equal. Resp: CTA bilaterally Heart: NSR. no murmurs. Abd: Soft positive bs Skin: No cyanosis or erythema. SCDs in place. Muscle: Moves all 4 extremities well, 5/5. [place] cervical collar in place. Neuro: Pt awakens to voice. Follows commands well. Speech clear and appropriate. Sensation intact in extremities to light touch although subjective complaints of numbness in hands and left anterior leg from foot to her thigh. (Aldair Mcclain) Lab, Micro, Other Results Last Impressions Head CT 05/22/17 0000 Signed Impressions: Service Date/Time: Monday, May 22, 2017 03:02 - CONCLUSION: Unremarkable study. Alexander Figueroa MD Cervical Spine CT 05/22/17 0000 Signed Impressions: Service Date/Time: Monday, May 22, 2017 03:02 - CONCLUSION: Fracture of dens and anterior arch of C1 not present previously without any significant thecal sac stenosis. Alexander Figueroa MD Laboratory Tests Test 05/24/17 05:25 Blood Urea Nitrogen 26 MG/DL Creatinine 1.01 MG/DL Random Glucose 88 MG/DL Calcium Level 8.7 MG/DL Sodium Level 143 MEQ/L Potassium Level 3.9 MEQ/L Chloride Level 107 MEQ/L Carbon Dioxide Level 29.6 MEQ/L Anion Gap 6 MEQ/L Estimat Glomerular Filtration Rate 55 ML/MIN (Aldair Mcclain) Medical Decision Making Impression and Plan A: 67 y/o FM s/p C1 anterior arch slightly displaced fracture along with C2 type 2 odontoid fracture with slight posterior dens displacement. She also has severe kyphosis with multilevel degenerative disc disease and anterior subluxation of C3-4 and C4-5 levels, which appear to be within physiologic range. 2. COPD. 3. Unregulated hypertension. 4. Chronic pain syndrome with fibromyalgia and associated unsteady gait and frequent falls despite the use of a walker. 5. Chronic kidney disease. 6. Anxiety/depression. PLAN: Halo placement today. continue with pain control. Continue with DVT prophylaxis with SCDs. (Aldair Mcclain) Attending Statement The exam, history, and the medical decision-making described in the above note were completed with the assistance of the mid-level provider. I reviewed and agree with the findings presented. I attest that I had a [id number] encounter with the patient on the same day, and personally performed and documented my assessment and findings in the medical record. Stable examination. Agrees to halo placement also discussed with her son and . They would prefer that she be discharged home with home physical therapy once she is ready. (Giuliano Khalil MD) Aldair Mcclain May 24, 2017 10:58 Giuliano Khalil MD May 24, 2017 13:04
--- NOTE | 2017-05-24 13:00 | PD.OP ---
Operative Report Date of Surgery: May 24, 2017 Preoperative Diagnosis: Type II C2 slightly displaced odontoid fracture; C1 anterior arch is slightly displaced fracture Postoperative Diagnosis: Same Procedure: Closed reduction and internal fixation of C1 and C2 fractures with manipulation ; HALO placement Anesthesia: Local with conscious sedation Surgeon: Giuliano Khalil M.D. Analysis Evaluator(s): None Operation and Findings: Informed consent was obtained from the patient. Procedure undertaken at the bedside in the surgical intensive care unit with oxygen saturation and hemodynamic monitoring. Patient received the intravenous morphine and Versed. Neck was maintained in a [place] J collar during the placement of the halo. A bifrontal and occipital regions were then shaved and prepped with Betadine solution and infiltrated with 1% lidocaine with epinephrine solution avoiding the laceration sites. The halo ring was in place with 2 frontal and occipital pins tightened to 8 pounds of torque pressure. With the serial lateral x-ray imaging studies the dens to vertebral body alignment was restored with manipulation. The halo vest was then also placed in the ring connectors of the vest with rods and locked in place at 30 pounds of pressure at each connection maintaining a neutral neck position. A final lateral cervical spine x-ray was obtained which confirmed cervical spinal alignment. Patient tolerated the procedure well without any complications or blood loss. Giuliano Khalil MD May 24, 2017 13:00
--- NOTE | 2017-05-24 13:13 | RADRPT ---
EXAM DATE/TIME: 05/24/2017 12:47 [place] COMPARISON: CT CERVICAL SPINE W/O CONTRAST, May 22, 2017, 3:02. INDICATIONS : Evaluate halo placement, C1 fracture. MEDICAL HISTORY : Hypertension. Lupus. FIbromyalgia SURGICAL HISTORY : None. ENCOUNTER: Initial ACUITY: 1 day PAIN SCORE: Non-responsive. LOCATION: neck FINDINGS: A single lateral view of the cervical spine was performed. Craniocervical and cervical vertebral body alignment are unchanged following halo placement. CONCLUSION: Stable craniocervical and cervical vertebral body alignment following halo placement Manuel Mcgee MD on May 24, 2017 at 13:09 Board Certified Radiologist. This report was verified electronically.
[2017-05-24] MEDS: buPROPion HCL 150 MG SUSTAINED RELEASE TAB PO SCH (20:41)
[2017-05-24] MEDS: LATANOPROST 0.005% OPHT SOLN 2.5 ML BTL EACH EYE SCH (21:00)
[2017-05-25] VITALS (12 sets, daily range): BP systolic 138–176; BP diastolic 70–88; PULSE 58–84; RESP 18–26; TEMP 97.7–98.5; O2SAT 95–97
[2017-05-25] MEDS: oxyCODONE/ACETAMINOPHEN 10 MG/325 MG TAB PO PRN ×4 (00:45→21:15)
[2017-05-25] MEDS: HYDROXYCHLOROQUINE SULFATE 200 MG TAB PO SCH (08:21)
[2017-05-25] MEDS: PANTOPRAZOLE SOD 40 MG DELAYED RELEASE TAB PO SCH (08:22)
[2017-05-25] MEDS: VENLAFAXINE HCL 75 MG TAB PO SCH ×2 (08:22→21:16)
[2017-05-25] MEDS: FUROSEMIDE 40 MG TAB PO SCH (08:22)
[2017-05-25] MEDS: DOCUSATE SODIUM 50 MG/SENNA 8.6 MG TAB PO SCH ×2 (08:22→21:06)
[2017-05-25] MEDS: POTASSIUM CHLORIDE 10 MEQ CONTROLLED RELEASE TAB PO SCH ×2 (08:23→21:12)
[2017-05-25] MEDS: MORPHINE SULFATE 2 MG/ML INJ IV PUSH PRN (08:23)
[2017-05-25] MEDS: SODIUM CHLORIDE 0.9% FLUSH 10 ML FLUSH IV FLUSH SCH ×2 (08:23→21:00)
[2017-05-25] MEDS: BACLOFEN 10 MG TAB PO SCH ×3 (08:23→17:26)
--- NOTE | 2017-05-25 08:42 | HHI.PR ---
Subjective Remarks Follow-up neck pain, cervical spine fracture. The patient reports headache. No other complaints at this time. Denies shortness of breath or chest pain. Objective Vitals Vital Signs Date Time Temp Pulse Resp B/P (MAP) Pulse Ox O2 Delivery O2 Flow Rate FiO2 05/25/17 06:00 58 05/25/17 04:00 97.8 71 21 138/72 (94) 96 05/25/17 04:00 71 05/25/17 02:00 59 05/25/17 00:00 69 05/25/17 00:00 69 26 176/88 (117) 96 05/24/17 22:00 70 05/24/17 20:35 95 21 05/24/17 20:00 77 05/24/17 20:00 97.9 77 21 173/78 (109) 94 05/24/17 19:00 97 Room Air 05/24/17 18:00 67 05/24/17 16:00 69 05/24/17 16:00 98.2 71 14 121/60 (80) 96 05/24/17 14:00 75 05/24/17 12:00 98.3 82 20 132/62 (85) 98 05/24/17 12:00 70 05/24/17 10:00 86 I/O 05/24/17 05/24/17 05/24/17 05/25/17 05/25/17 05/25/17 07:00 15:00 23:00 07:00 15:00 23:00 Intake Total 665 ml 460 ml 500 ml Output Total 0 ml 200 ml 200 ml Balance 665 ml 260 ml 300 ml Intake Oral 480 ml 460 ml 500 ml IV Total 185 ml Output Urine Total 200 ml 200 ml Stool Total 0 ml # Voids 1 3 # Bowel Movements 1 0 Result Diagram: 05/22/17 0419 05/24/17 0525 Imaging Last Impressions Cervical Spine X-Ray 05/24/17 0000 Signed Impressions: Service Date/Time: Wednesday, May 24, 2017 12:47 - CONCLUSION: Stable craniocervical and cervical vertebral body alignment following halo placement Manuel Mcgee MD Head CT 05/22/17 0000 Signed Impressions: Service Date/Time: Monday, May 22, 2017 03:02 - CONCLUSION: Unremarkable study. Alexander Figueroa MD Cervical Spine CT 05/22/17 0000 Signed Impressions: Service Date/Time: Monday, May 22, 2017 03:02 - CONCLUSION: Fracture of dens and anterior arch of C1 not present previously without any significant thecal sac stenosis. Alexander Figueroa MD Objective Remarks General: Elderly female in no acute distress. In halo. Heart: Regular rate and rhythm. No murmur. Lungs: Clear to auscultation bilaterally. No wheezes, rales, or rhonchi. Breathing is nonlabored. Abdomen: Soft, nontender, nondistended. Extremities: No lower extremity edema. Psych: Alert and oriented. Procedures none Urinary Catheter: No Vascular Central Line Catheter: No A/P Assessment and Plan 1. Status post fall with C1 fracture: Management per neurosurgery. Continue pain control. Halo placed by neurosurgery. 2. Hypertension: Lopressor on hold secondary to bradycardia. 3. Acute kidney injury superimposed on chronic kidney disease: Improving. Monitor BUN and creatinine. Continue gentle IV fluid hydration. Lasix decreased. Avoid NSAIDs. 4. History of depression: Continue Effexor. 5. Restless leg syndrome: Continue Requip. 6. Chronic pain, fibromyalgia, arthritis: Patient takes Lortab 10 as outpatient. She is followed by pain management. Currently on IV pain medication per neurosurgery. 7. DVT prophylaxis: Christiano, GIRISH caba. Zev Salcedo MD May 25, 2017 08:42
--- NOTE | 2017-05-25 09:42 | HHI.NSPN ---
(Aldair Mcclain) History Chief Complaint: Neck pain, occipital head pain. (Aldair Mcclain) Interval History 67-year-old obese female who apparently two nights ago was on the toilet commode and she fell asleep and fell forward and struck her head on the ground and noticed severe neck pain radiating to the occipital aspect and the temporofrontal aspect. She did not seek immediate attention but early this morning the pain was intractable despite the use of pain medications and muscle relaxants which she takes on a regular basis. She presented to the [facility] Emergency Room and workup included CT scan of the head, which was negative, and CT of the cervical spine reveals a C1 anterior arch fracture with 3 mm separation as well as a C2 type 2 odontoid fracture with slight posterior angulation. She has extensive multilevel degenerative changes with severe kyphosis and subluxation at C3-4 and C4-5 levels in particular. She relates chronic neck pain and also suffers from fibromyalgia which has affected her balance and she has fallen on multiple occasions because of this. She uses a walker at home. She was placed in a [place] collar and transferred to [facility] for further management. She denies any numbness or paresthesias in the upper or lower extremities or any incontinence. 05/23/17: Pt awake and alert. Complains of neck pain and cervical collar irritation. No radiculopathy in UEs. No paresthesias in UEs. [place] cervical collar in place but complains its irritating the back of her head. 05/24/17: Patient awake and alert sitting up in a chair. Complains of neck pain and numbness in her hands. She also complains of pain in her left foot with numbness in the anterior left leg. 05/25/17: Pt awake and alert. Complains of right sided neck pain and pain extending into the right side of her head improves when not moving. No radiculopathy in UEs. (Aldair Mcclain) Review of Systems General: Negative for: fever, chills, insomnia Respiratory: Negative for: shortness of breath, cough, sputum Cardiovascular: Negative for: chest pain Gastrointestinal: Negative for: nausea, vomitting, diarrhea, constipation ( Aldair Mcclain) Exam Results Vital Signs Date Time Temp Pulse Resp B/P (MAP) Pulse Ox O2 Delivery O2 Flow Rate FiO2 05/25/17 08:00 98.3 76 22 163/81 (108) 96 05/25/17 07:00 Room Air 05/24/17 20:35 21 05/23/17 07:00 2.00 Intake and Output 05/25/17 05/25/17 05/26/17 08:00 16:00 00:00 Intake Total 500 ml Output Total 200 ml Balance 300 ml (Aldair Mcclain) Physical Examination General: Pt resting in bed, not appearing in any distress with halo intact. Eyes: Pupils equal. Resp: CTA bilaterally upper lung bradley limited lower bradley secondary to halo. Heart: NSR. no murmurs. Abd: Soft positive bs Skin: No cyanosis or erythema. SCDs in place. halo pin sites with Betadine gauze. Muscle: Moves all 4 extremities well, 5/5. Halo intact. Neuro: Pt awakens to voice. Follows commands well. Speech clear and appropriate. Sensation intact in extremities to light touch although subjective complaints of numbness in hands and left anterior leg from foot to her thigh. (Aldair Mcclain) Lab, Micro, Other Results Last Impressions Cervical Spine X-Ray 05/24/17 0000 Signed Impressions: Service Date/Time: Wednesday, May 24, 2017 12:47 - CONCLUSION: Stable craniocervical and cervical vertebral body alignment following halo placement Manuel Mcgee MD Head CT 05/22/17 0000 Signed Impressions: Service Date/Time: Monday, May 22, 2017 03:02 - CONCLUSION: Unremarkable study. Alexander Figueroa MD Cervical Spine CT 05/22/17 0000 Signed Impressions: Service Date/Time: Monday, May 22, 2017 03:02 - CONCLUSION: Fracture of dens and anterior arch of C1 not present previously without any significant thecal sac stenosis. Alexander Figueroa MD (Aldair Mcclain) Medical Decision Making Impression and Plan A: 67 y/o FM s/p C1 anterior arch slightly displaced fracture along with C2 type 2 odontoid fracture with slight posterior dens displacement. She also has severe kyphosis with multilevel degenerative disc disease and anterior subluxation of C3-4 and C4-5 levels, which appear to be within physiologic range. 2. COPD. 3. Unregulated hypertension. 4. Chronic pain syndrome with fibromyalgia and associated unsteady gait and frequent falls despite the use of a walker. 5. Chronic kidney disease. 6. Anxiety/depression. PLAN: Halo placement today. continue with pain control. Continue with DVT prophylaxis with SCDs. (Aldair Mcclain) Attending Statement The exam, history, and the medical decision-making described in the above note were completed with the assistance of the mid-level provider. I reviewed and agree with the findings presented. I attest that I had a [id number] encounter with the patient on the same day, and personally performed and documented my assessment and findings in the medical record. Stable examination. Ambulated with physical therapy and recommendations for discharge home with home therapy. Transfer to the floor anticipate discharge tomorrow if stable with home physical therapy. (Giuliano Khalil MD) Aldair Mcclain May 25, 2017 09:42 Giuliano Khalil MD May 25, 2017 15:50
[2017-05-25] MEDS: ONDANSETRON HCL 4 MG/2 ML VIAL IV PUSH PRN (11:47)
[2017-05-25] MEDS: BISACODYL 10 MG SUPP RECTAL PRN (15:03)
[2017-05-25] MEDS: cloNIDine HCL 0.1 MG TAB PO PRN (17:32)
[2017-05-25] MEDS: LACTULOSE SYRUP 20 GM/30 ML CUP PO PRN (17:32)
[2017-05-25] MEDS: buPROPion HCL 150 MG SUSTAINED RELEASE TAB PO SCH (21:07)
[2017-05-25] MEDS: LATANOPROST 0.005% OPHT SOLN 2.5 ML BTL EACH EYE SCH (21:17)
[2017-05-26] MEDS: DIAZEPAM 5 MG TAB PO PRN (00:26)
[2017-05-26] MEDS: MORPHINE SULFATE 2 MG/ML INJ IV PUSH PRN (00:27)
[2017-05-26] MEDS: cloNIDine HCL 0.1 MG TAB PO PRN (01:15)
[2017-05-26 01:42] VITALS: BP 173/79; PULSE 69; RESP 20; TEMP 97.3; O2SAT 96
[2017-05-26] MEDS: oxyCODONE/ACETAMINOPHEN 10 MG/325 MG TAB PO PRN ×3 (04:23→12:02)
[2017-05-26 05:15] VITALS: BP 187/88; PULSE 65; RESP 18; TEMP 97.7; O2SAT 98
[2017-05-26] MEDS: VENLAFAXINE HCL 75 MG TAB PO SCH (08:05)
[2017-05-26] MEDS: FUROSEMIDE 40 MG TAB PO SCH (08:05)
[2017-05-26] MEDS: HYDROXYCHLOROQUINE SULFATE 200 MG TAB PO SCH (08:05)
[2017-05-26] MEDS: DOCUSATE SODIUM 50 MG/SENNA 8.6 MG TAB PO SCH (08:07)
[2017-05-26] MEDS: SODIUM CHLORIDE 0.9% FLUSH 10 ML FLUSH IV FLUSH SCH (08:07)
[2017-05-26] MEDS: PANTOPRAZOLE SOD 40 MG DELAYED RELEASE TAB PO SCH (08:07)
[2017-05-26] MEDS: BACLOFEN 10 MG TAB PO SCH ×2 (08:08→12:00)
[2017-05-26] MEDS: BISACODYL 10 MG SUPP RECTAL PRN (08:08)
[2017-05-26] MEDS: POTASSIUM CHLORIDE 10 MEQ CONTROLLED RELEASE TAB PO SCH (08:08)
[2017-05-26] MEDS: ONDANSETRON HCL 4 MG/2 ML VIAL IV PUSH PRN (08:11)
[2017-05-26 08:19] VITALS: BP 149/65; PULSE 73; RESP 18; TEMP 97.4; O2SAT 97
--- NOTE | 2017-05-26 10:29 | HHI.PR ---
Subjective Remarks Follow up neck pain, hypertension. Patient states that she feels better today and hopes to go home. She still has pain on the right side of her head and neck. No chest pain, dyspnea, nausea, vomiting. Objective Vitals Vital Signs Date Time Temp Pulse Resp B/P (MAP) Pulse Ox O2 Delivery O2 Flow Rate FiO2 05/26/17 08:19 97.4 73 18 149/65 (93) 97 05/26/17 05:15 97.7 65 18 187/88 (121) 98 05/26/17 01:42 97.3 69 20 173/79 (110) 96 05/25/17 21:50 97.7 73 18 168/81 (110) 97 05/25/17 21:12 97 05/25/17 18:10 84 05/25/17 16:00 78 05/25/17 16:00 98.5 78 20 153/76 (101) 96 05/25/17 14:00 78 05/25/17 12:00 77 05/25/17 12:00 98.5 77 20 166/70 (102) 95 I/O 05/25/17 05/25/17 05/25/17 05/26/17 05/26/17 05/26/17 07:00 15:00 23:00 07:00 15:00 23:00 Intake Total 500 ml 780 ml Output Total 200 ml 451 ml Balance 300 ml 329 ml Intake Oral 500 ml IV Total 780 ml Output Urine Total 200 ml 450 ml Emesis 1 ml # Voids 1 # Bowel Movements 0 1 Result Diagram: 05/22/17 0419 05/24/17 0525 Imaging Last Impressions Cervical Spine X-Ray 05/24/17 0000 Signed Impressions: Service Date/Time: Wednesday, May 24, 2017 12:47 - CONCLUSION: Stable craniocervical and cervical vertebral body alignment following halo placement Manuel Mcgee MD Head CT 05/22/17 0000 Signed Impressions: Service Date/Time: Monday, May 22, 2017 03:02 - CONCLUSION: Unremarkable study. Alexander Figueroa MD Cervical Spine CT 05/22/17 0000 Signed Impressions: Service Date/Time: Monday, May 22, 2017 03:02 - CONCLUSION: Fracture of dens and anterior arch of C1 not present previously without any significant thecal sac stenosis. K. Willis Figueroa MD Objective Remarks General: Elderly female in no acute distress. In halo. Heart: Regular rate and rhythm. No murmur. Lungs: Clear to auscultation bilaterally. No wheezes, rales, or rhonchi. Breathing is nonlabored. Abdomen: Soft, nontender, nondistended. Extremities: No lower extremity edema. Psych: Alert and oriented. Procedures 05/24/17 Closed reduction and internal fixation of C1 and C2 fractures with manipulation; HALO placement Urinary Catheter: No Vascular Central Line Catheter: No A/P Assessment and Plan 1. Status post fall with C1 fracture: Management per neurosurgery. Continue pain control. Halo placed by neurosurgery. 2. Hypertension: BP has been elevated. Restart metoprolol at lower dose. 3. Acute kidney injury superimposed on chronic kidney disease: BUN and creatinine trending down. Lasix decreased. Avoid NSAIDs. 4. History of depression: Continue Effexor. 5. Restless leg syndrome: Continue Requip. 6. Chronic pain, fibromyalgia, arthritis: Patient takes Lortab 10 as outpatient. She is followed by pain management. Currently on pain medication per neurosurgery. 7. DVT prophylaxis: GIRISH Alvarado. Discharge Planning Per neurosurgery. Zev Salcedo MD May 26, 2017 10:29
[2017-05-26] MEDS ORDERED: PILL SPLITTER OTHER PRN (10:45)
--- NOTE | 2017-05-26 10:49 | HHI.NSPN ---
History Chief Complaint: Neck pain, occipital head pain. Interval History 67-year-old obese female who apparently two nights ago was on the toilet commode and she fell asleep and fell forward and struck her head on the ground and noticed severe neck pain radiating to the occipital aspect and the temporofrontal aspect. She did not seek immediate attention but early this morning the pain was intractable despite the use of pain medications and muscle relaxants which she takes on a regular basis. She presented to the [facility] Emergency Room and workup included CT scan of the head, which was negative, and CT of the cervical spine reveals a C1 anterior arch fracture with 3 mm separation as well as a C2 type 2 odontoid fracture with slight posterior angulation. She has extensive multilevel degenerative changes with severe kyphosis and subluxation at C3-4 and C4-5 levels in particular. She relates chronic neck pain and also suffers from fibromyalgia which has affected her balance and she has fallen on multiple occasions because of this. She uses a walker at home. She was placed in a Cushing collar and transferred to [facility] for further management. She denies any numbness or paresthesias in the upper or lower extremities or any incontinence. 05/23/17: Pt awake and alert. Complains of neck pain and cervical collar irritation. No radiculopathy in UEs. No paresthesias in UEs. Cushing cervical collar in place but complains its irritating the back of her head. 05/24/17: Patient awake and alert sitting up in a chair. Complains of neck pain and numbness in her hands. She also complains of pain in her left foot with numbness in the anterior left leg. 05/25/17: Pt awake and alert. Complains of right sided neck pain and pain extending into the right side of her head improves when not moving. No radiculopathy in UEs. 05/26/17: Pt awake and alert. States comfortable. States she did well with PT yesterday and pt and son want her to go home with home health and home PT. Review of Systems General: Negative for: fever, chills, insomnia Respiratory: Negative for: shortness of breath, cough, sputum Cardiovascular: Negative for: chest pain Gastrointestinal: Negative for: nausea, vomitting, diarrhea, constipation Exam Results Vital Signs Date Time Temp Pulse Resp B/P (MAP) Pulse Ox O2 Delivery O2 Flow Rate FiO2 05/26/17 08:19 97.4 73 18 149/65 (93) 97 05/25/17 07:00 Room Air 05/24/17 20:35 21 05/23/17 07:00 2.00 Physical Examination General: Pt resting in bed, not appearing in any distress with halo intact. Eyes: Pupils equal. Resp: CTA bilaterally upper lung bradley limited lower bradley secondary to halo. Heart: NSR. no murmurs. Abd: Soft positive bs Skin: No cyanosis or erythema. SCDs in place. halo pin sites clean and dry. Muscle: Moves all 4 extremities well, 5/5. Halo intact. Neuro: Pt awakens to voice. Follows commands well. Speech clear and appropriate. Sensation intact, pt states numbness in left anterior leg and left hand resolved and states it was from Baclofen. She has intermittent numbness in right 2-5th fingers which is chronic and doesn't affect the hand or arm at all. Lab, Micro, Other Results Last Impressions Cervical Spine X-Ray 05/24/17 0000 Signed Impressions: Service Date/Time: Wednesday, May 24, 2017 12:47 - CONCLUSION: Stable craniocervical and cervical vertebral body alignment following halo placement Manuel Mcgee MD Head CT 05/22/17 0000 Signed Impressions: Service Date/Time: Monday, May 22, 2017 03:02 - CONCLUSION: Unremarkable study. Alexander Figueroa MD Cervical Spine CT 05/22/17 0000 Signed Impressions: Service Date/Time: Monday, May 22, 2017 03:02 - CONCLUSION: Fracture of dens and anterior arch of C1 not present previously without any significant thecal sac stenosis. Alexander Figueroa MD Medical Decision Making Impression and Plan A: 67 y/o FM s/p C1 anterior arch slightly displaced fracture along with C2 type 2 odontoid fracture with slight posterior dens displacement. She also has severe kyphosis with multilevel degenerative disc disease and anterior subluxation of C3-4 and C4-5 levels, which appear to be within physiologic range. S/p Halo placement for C2 fx. 2. COPD. 3. Unregulated hypertension. 4. Chronic pain syndrome with fibromyalgia and associated unsteady gait and frequent falls despite the use of a walker. 5. Chronic kidney disease. 6. Anxiety/depression. PLAN: Halo placement today. continue with pain control. Continue with DVT prophylaxis with SCDs. Aldair Mcclain May 26, 2017 10:49 am
--- NOTE | 2017-05-26 10:56 | HHI.FF ---
Face to Face Verification Diagnosis: (1) Dens fracture (2) Closed C1 fracture Physical Therapy Order: Evaluate and Treat, Improve ambulation, Strength and gait training Home Health Nursing Order: Wound care and dressing changes Nursing assessment with vital signs Instructions: Halo pin site care bid with NS and Hydrogen Peroxide 1:1 mixture. I have seen patient Rivka Lind on 05/26/17. My clinical findings support the need for the requested home health care services because: Deconditioned w/ increased weakness High risk of falls I certify that my clinical findings support that this patient is homebound because: Unsteady gait/balance Unable to use public transportation Aldair Mcclain May 26, 2017 10:56 am
[2017-05-26] MEDS ORDERED: METOPROLOL TARTRATE 25 MG TAB PO SCH (11:00)
[2017-05-26 12:34] VITALS: BP 150/73; PULSE 67; RESP 18; TEMP 98.1; O2SAT 94
[2017-05-26] MEDS ORDERED: COMMODE 3-IN-11 MIS (13:20)
== END 2017-05-26 15:55 | disposition home health service (06) | DRG 552 ==
LOC: PHED 02:27 → PHEDA 04:04 → N03B 08:01 → N05B 05-25 18:45
PROVIDERS: ADMIT Neurological Surgery; ATTEND Neurological Surgery
PROC: 2W60X0Z Traction of Head using Traction Apparatus (ICD-10-PCS; principal; 2017-05-24)
PROC: 0PS3XZZ Reposition Cervical Vertebra, External Approach (ICD-10-PCS; 2017-05-24)
DX: S12.090A Other displaced fracture of first cervical vertebra, initial encounter for closed fracture (principal); S12.190A Other displaced fracture of second cervical vertebra, initial encounter for closed fracture; N17.9 Acute kidney failure, unspecified; W18.12XA Fall from or off toilet with subsequent striking against object, initial encounter; Y92.002 Bathroom of unspecified non-institutional (private) residence as the place of occurrence of the external cause; F32.9 Major depressive disorder, single episode, unspecified; G89.4 Chronic pain syndrome; M06.9 Rheumatoid arthritis, unspecified; M79.7 Fibromyalgia; I12.9 Hypertensive chronic kidney disease with stage 1 through stage 4 chronic kidney disease, or unspecified chronic kidney disease; N18.9 Chronic kidney disease, unspecified; G25.81 Restless legs syndrome; J44.9 Chronic obstructive pulmonary disease, unspecified; F41.9 Anxiety disorder, unspecified; E78.5 Hyperlipidemia, unspecified; E66.9 Obesity, unspecified; Z68.36 Body mass index [BMI] 36.0-36.9, adult; R26.9 Unspecified abnormalities of gait and mobility; R29.6 Repeated falls; R00.1 Bradycardia, unspecified; M25.512 Pain in left shoulder; M25.511 Pain in right shoulder; Z96.651 Presence of right artificial knee joint
CPT/HCPCS: 70450; 72020; 72125; 80048; 80053; 83735; 85025; 85610; 85730; 86850; 86900; 86901; 87641; 93005; 94150; 96372; J1885; J2250; J2270; J2360; J2405; J7042; L0150; L0810

== ENCOUNTER 2017-07-10 04:15 | Emergency (ER) | payer MEDICARE, OTHER ==
[~2017-07-10] VITALS: Ht 152.4 cm; Wt 81.5 kg
[~2017-07-10 04:15] MED LIST changes: -BACL10TA PO; +COMMODE 3-IN-11 MIS; -IBUP-232 PO; +OXYC1TAB36 PO; -PERC7.5T13 PO
[2017-07-10 04:16] VITALS: BP 204/95; PULSE 65; RESP 16; TEMP 97.8; O2SAT 99
[2017-07-10] MEDS ORDERED: GABA300C5 PO (04:46)
[2017-07-10] MEDS ORDERED: HYDR1CAP30 PO (04:46)
[2017-07-10] MEDS ORDERED: IBUP1TAB7 PO (04:46)
[2017-07-10] MEDS ORDERED: SUMA100T2 PO (04:46)
[2017-07-10] MEDS ORDERED: FURO20TA PO (04:46)
[2017-07-10] MEDS ORDERED: VITA500T4 PO (04:46)
[2017-07-10] MEDS ORDERED: AZAT50 PO (04:46)
--- NOTE | 2017-07-10 04:48 | PD ---
HPI Chief Complaint: Headache Time Seen by Provider: 04:47 Travel History International Travel<30 days: No Contact w/Intl Traveler<30days: No Traveled to known affect area: No History of Present Illness HPI 67-year-old female came to the emergency room brought by her with history of headache that is chronic at this point but has distress the patient significantly. Patient had a fall that caused C2 fracture on . Patient was operated and put on a hill low by the neurosurgeon in this hospital. The patient is supposed to be on for 6 weeks. Meanwhile patient has been complaining of this headache. She says that when she gets Dilaudid or takes OxyContin the headache feels little better. She took her last OxyContin yesterday. She is out of her OxyContin then has to go to her pain management doctor to get more prescriptions. She tried calling the neurosurgeon's office and was asked to come to the emergency room. Patient has been extremely anxious and jittery. At the time I went to see her she has been unable to sit still. She says she has restless leg syndrome. PFSH Past Medical History Narrative Medical List of her past medical, surgical, social and family history is reviewed from the nursing note. Hx Anticoagulant Therapy: No Arthritis: Yes Asthma: Yes Autoimmune Disease: Yes (LUPUS ) Blood Disorders: No Anxiety: Yes Depression: Yes Cancer: No Cardiovascular Problems: No High Cholesterol: Yes COPD: No Cerebrovascular Accident: No Diabetes: No Diminished Hearing: No Endocrine: No Fibromyalgia: Yes Gastrointestinal Disorders: Yes GERD: Yes Glaucoma: Yes Gout: Yes Genitourinary: No Headaches: Yes Hiatal Hernia: Yes Hypertension: Yes Immune Disorder: No Implanted Vascular Access Dvce: No Musculoskeletal: Yes (LEFT ELBOW FX, C1-C2 FX) Neurologic: Yes (NEUROPATHY) Psychiatric: Yes Reproductive: No Respiratory: Yes Immunizations Current: Yes Migraines: Yes Seizures: No Sleep Apnea: No Ulcer: Yes Menopausal: Yes Past Surgical History Abdominal Surgery: No AICD: No Arteriovenous Shunt: No Cardiac Surgery: No Ear Surgery: No Endocrine Surgery: No Eye Surgery: No Genitourinary Surgery: No Gynecologic Surgery: No Insulin Pump: No Joint Replacement: No Oral Surgery: Yes (2 POLYPS REMOVED FROM GUMS ) Pacemaker: No Thoracic Surgery: No Other Surgery: Yes (HEMORRHOIDECTOMY) Social History Alcohol Use: No Tobacco Use: No Substance Use: No Allergies-Medications (Allergen,Severity, Reaction): Coded Allergies: cephalexin (Unverified Allergy, Severe, ANAPHYLAXIS, 07/10/17) cat dander (Unverified Allergy, Intermediate, rhinitis, 07/10/17) grass pollen (Unverified Allergy, Intermediate, "Pollen Allergy" per patient report, 07/10/17) house dust (Unverified Allergy, Intermediate, environmental allergy, ) mold (Unverified Allergy, Intermediate, environmental , 07/10/17) pregabalin (Unverified Allergy, Intermediate, rash, 07/10/17) Sulfa (Sulfonamide Antibiotics) (Unverified Allergy, Mild, oral sores, 05/15) penicillin G (Unverified Allergy, Mild, itching, 07/10/17) gabapentin (Unverified Adverse Reaction, Mild, falls, 07/10/17) Comments List of allergies reviewed from the nursing note. Reported Meds & Prescriptions Reported Meds & Active Scripts Active Reported Vitamin B-12 (Cyanocobalamin) 500 Mcg Tab 1,000 Mcg PO DAILY Gabapentin 300 Mg Cap 300 Mg PO TID Ibuprofen 800 Mg Tab 800 Mg PO TID Azathioprine 50 Mg Tab 25 Mg PO DAILY Hazardous agent use appropriate precautions for handling and disposal. Furosemide 20 Mg Tab 20 Mg PO BID Hydroxyzine Pamoate 25 Mg Cap 25 Mg PO BID Sumatriptan (Sumatriptan Succinate) 100 Mg Tab 100 Mg PO ONCE PRN If a satisfactory response has not been obtained at 2 hours, a second dose may be administered Effexor (Venlafaxine HCl) 75 Mg Tab 75 Mg PO BID Oxycodone-Acetaminophen 10-325 mg Tab 1 Tab PO TID PRN Metoprolol Tartrate 25 Mg Tab 25 Mg PO BID Latanoprost Opth Drops (Latanoprost) 0.005% Drops 1 Drop EACH EYE HS Refrigerate until opened. Hydroxychloroquine (Hydroxychloroquine Sulfate) 200 Mg Tab 200 Mg PO DAILY Takw with food Bupropion Sr 12 HR (Bupropion ER 12 HR (Smoking Deterrent)) 150 Mg Tab 150 Mg PO HS Take 1 tablet daily x 3 days then twice daily thereafter. Tizanidine (Tizanidine HCl) 4 Mg Tab 4 Mg PO BID PRN K-Tab (Potassium Chloride) 10 Meq Tab 10 Meq PO BID Ropinirole 2 Mg Tab 4 Mg PO BID Narrative Medication List of her home medications reviewed from the nursing note. Review of Systems Except as stated in HPI: all other systems reviewed are Neg Musculoskeletal: Positive: Pain Physical Exam Narrative GENERAL: Awake, alert, anxious, restless SKIN: Focused skin assessment warm/dry. HEAD: Head or on the head and based on the neck EYES: Pupils equal and round. No scleral icterus. No injection or drainage. ENT: No nasal bleeding or discharge. Mucous membranes pink and moist. NECK: Trachea midline. No JVD. CARDIOVASCULAR: Regular rate and rhythm. No murmur appreciated. RESPIRATORY: No accessory muscle use. Clear to auscultation. Breath sounds equal bilaterally. GASTROINTESTINAL: Abdomen soft, non-tender, nondistended. Hepatic and splenic margins not palpable. MUSCULOSKELETAL: No obvious deformities. No clubbing. No cyanosis. No edema. NEUROLOGICAL: Awake and alert. No obvious cranial nerve deficits. Motor grossly within normal limits. Normal speech. PSYCHIATRIC: Appropriate mood and affect; insight and judgment normal. Data Data Last Documented VS Vital Signs Date Time Temp Pulse Resp B/P (MAP) Pulse Ox O2 Delivery O2 Flow Rate FiO2 07/10/17 06:59 07/10/17 04:16 97.8 65 16 99 Room Air Orders Orders Prochlorperazine Inj (Compazine Inj) (07/10/17 05:00) Sodium Chlor 0.9% 1000 Ml Inj (Ns 1000 M (07/10/17 05:00) Diphenhydramine Inj (Benadryl Inj) (07/10/17 05:30) Complete Blood Count With Diff (07/10/17 05:37) Basic Metabolic Panel (Bmp) (07/10/17 05:37) Morphine Inj (Morphine Inj) (07/10/17 06:15) Lorazepam Inj (Ativan Inj) (07/10/17 06:15) Ed Discharge Order (07/10/17 06:52) Labs Laboratory Tests Test 07/10/17 05:44 White Blood Count 7.1 TH/MM3 Red Blood Count 4.09 MIL/MM3 Hemoglobin 12.0 GM/DL Hematocrit 35.3 % Mean Corpuscular Volume 86.2 FL Mean Corpuscular Hemoglobin 29.4 PG Mean Corpuscular Hemoglobin Concent 34.1 % Red Cell Distribution Width 14.7 % Platelet Count 193 TH/MM3 Mean Platelet Volume 6.8 FL Neutrophils (%) (Auto) 62.1 % Lymphocytes (%) (Auto) 25.3 % Monocytes (%) (Auto) 7.3 % Eosinophils (%) (Auto) 4.2 % Basophils (%) (Auto) 1.1 % Neutrophils # (Auto) 4.4 TH/MM3 Lymphocytes # (Auto) 1.8 TH/MM3 Monocytes # (Auto) 0.5 TH/MM3 Eosinophils # (Auto) 0.3 TH/MM3 Basophils # (Auto) 0.1 TH/MM3 CBC Comment DIFF FINAL Differential Comment Blood Urea Nitrogen 24 MG/DL Creatinine 1.05 MG/DL Random Glucose 105 MG/DL Calcium Level 9.1 MG/DL Sodium Level 140 MEQ/L Potassium Level 4.0 MEQ/L Chloride Level 106 MEQ/L Carbon Dioxide Level 28.2 MEQ/L Anion Gap 6 MEQ/L Estimat Glomerular Filtration Rate 52 ML/MIN MDM Medical Decision Making Medical Screen Exam Complete: Yes Emergency Medical Condition: Yes Medical Record Reviewed: Yes Differential Diagnosis Acute on chronic pain, headache NOS, possible opiate withdrawal Narrative Course 6:05 AM patient initially was given IV Compazine and IV fluid bolus for her headache. However patient started getting more and more agitated. Thinking that this was akathisia patient was given IV Benadryl to counter the effect. Patient however has escalated with her agitation. She pulled her IV out. She wanted Dilaudid for her restless leg syndrome. Patient will be given IM morphine 6 mg and IM Ativan to calm her down. Given the way I'm looking at her currently it seems like she is more in the possible opiate withdrawal. Looking at her previous chart patient has been insignificant amount of narcotics in the past. Seems like quite a few of those have been withheld since her recurrent fall and eventually the cervical fracture. This might have led to this condition that I'm witnessing today. I will see how she does with the current medication that I have ordered. If she continues to be in distress and Dr. Khalil's to be called at that point. I was told that is not on and will start taking calls at 7:00 in the morning. Case will probably be signed out to the oncoming ER physician to speak with Dr. Khalil. 6:15 AM blood test results of back and within acceptable limits. Patient started getting very claustrophobic and anxious in the room. The nurse has in her sit in the wheelchair and asked the to stroke or in the vicinity till the Ativan kicks in. 6:51 AM patient has calmed down a little bit. She wants to go home and call her neurosurgeon from home. I'm okay with this plan. Procedures EKG Prior to Arrival: No Diagnosis Primary Impression: acute on chronic headache Additional Impression: Anxiety Referrals: Primary Care Physician Additional Instructions: Follow-up with your neurosurgeon. Return to ER if condition worsens or any other new concerns. Disposition: 01 DISCHARGE HOME Condition: Stable Lamin Mac MD Jul 10, 2017 04:48
[2017-07-10] MEDS ORDERED: PROCHLORPERAZINE INJ 10 MG/2 ML VIAL IV PUSH ONE (05:00)
[2017-07-10] MEDS ORDERED: SODIUM CHLOR 0.9% 1000 ML INJ 1,000 ML IV ONE (05:00)
[2017-07-10] MEDS ORDERED: diphenhydrAMINE HCL 50 MG/ML VIAL IV PUSH ONE (05:30)
[2017-07-10 05:56] LABS: AUTOMATED NEUTROPHIL # 4.4 TH/MM3 (1.8-7.7); BASOPHIL # 0.1 TH/MM3 (0-0.2); BASOPHIL % 1.1 % (0.0-2.0); EOSINOPHIL # 0.3 TH/MM3 (0-0.4); EOSINOPHIL % 4.2 % (0.0-4.0); HEMATOCRIT 35.3 % (35.0-46.0); LYMPH % 25.3 % (9.0-44.0); LYMPHOCYTE # 1.8 TH/MM3 (1.0-4.8); MEAN CELL VOLUME 86.2 FL (80.0-100.0); MEAN CORPUSCULAR HEMOGLOBIN 29.4 PG (27.0-34.0); MEAN CORPUSCULAR HGB CONC 34.1 % (32.0-36.0); MEAN PLATELET VOLUME 6.8 FL (7.0-11.0); MONO % 7.3 % (0.0-8.0); MONOCYTE # 0.5 TH/MM3 (0-0.9); NEUT % 62.1 % (16.0-70.0); PLATELET COUNT 193 TH/MM3 (150-450); RED BLOOD COUNT 4.09 MIL/MM3 (4.00-5.30); RED CELL DISTRIBUTION WIDTH 14.7 % (11.6-17.2); WHITE BLOOD COUNT 7.1 TH/MM3 (4.0-11.0)
[2017-07-10 06:13] LABS: BICARBONATE 28.2 MEQ/L (21.0-32.0); CALCIUM 9.1 MG/DL (8.5-10.1); CREATININE 1.05 MG/DL (0.50-1.00)
[2017-07-10] MEDS ORDERED: LORazepam 2 MG/ML VIAL IM ONE (06:15)
[2017-07-10] MEDS ORDERED: MORPHINE SULFATE 8 MG/ML INJ IM ONE (06:15)
== END 2017-07-10 07:42 | disposition home or self-care (01) ==
LOC: NEPC 04:15
DX: R51 Headache (principal); F41.9 Anxiety disorder, unspecified; I10 Essential (primary) hypertension; E78.00 Pure hypercholesterolemia, unspecified; J45.909 Unspecified asthma, uncomplicated; M32.9 Systemic lupus erythematosus, unspecified; M79.7 Fibromyalgia; F32.9 Major depressive disorder, single episode, unspecified; Z88.0 Allergy status to penicillin; Z88.2 Allergy status to sulfonamides; Z79.899 Other long term (current) drug therapy
CPT/HCPCS: 80048; 85025; 96361; 96372; 96374; 96375; 99284; J0780; J1200; J2060; J2270; J7030

== ENCOUNTER 2017-07-11 09:44 | Emergency (ER) | payer OTHER ==
[~2017-07-11] VITALS: Ht 152.4 cm; Wt 180.0 kg
[~2017-07-11 09:44] MED LIST changes: +AZAT50 PO; -COMMODE 3-IN-11 MIS; +FURO20TA PO; -FURO80TA PO; +GABA300C5 PO; +HYDR1CAP30 PO; +IBUP1TAB7 PO; +SUMA100T2 PO; +VITA500T4 PO
[2017-07-11 09:47] VITALS: BP 175/119; PULSE 69; RESP 16; TEMP 98.3; O2SAT 99
[2017-07-11] MEDS ORDERED: PROPOFOL 200 MG/20 ML AMP IV ONE (10:15)
--- NOTE | 2017-07-11 10:21 | PD ---
HPI . halo removal Chief Complaint: Route Delivery Manager Problem Time Seen by Provider: 10:13 Travel History International Travel<30 days: No Contact w/Intl Traveler<30days: No Traveled to known affect area: No History of Present Illness HPI This patient is here for removal of her halo. This will be done by the [facility]. We are seeing the patient because she needs conscious sedation procedure. PFSH Past Medical History Hx Anticoagulant Therapy: No Arthritis: Yes Asthma: Yes Autoimmune Disease: Yes (LUPUS ) Blood Disorders: No Anxiety: Yes Depression: Yes Cancer: No Cardiovascular Problems: No High Cholesterol: Yes COPD: No Cerebrovascular Accident: No Diabetes: No Diminished Hearing: No Endocrine: No Fibromyalgia: Yes Gastrointestinal Disorders: Yes GERD: Yes Glaucoma: Yes Gout: Yes Genitourinary: No Headaches: Yes Hiatal Hernia: Yes Hypertension: Yes Immune Disorder: No Implanted Vascular Access Dvce: No Musculoskeletal: Yes (LEFT ELBOW FX, C1-C2 FX) Neurologic: Yes (NEUROPATHY) Psychiatric: Yes Reproductive: No Respiratory: Yes Immunizations Current: Yes Migraines: Yes Seizures: No Sleep Apnea: No Ulcer: Yes Menopausal: Yes Past Surgical History Abdominal Surgery: No AICD: No Arteriovenous Shunt: No Cardiac Surgery: No Ear Surgery: No Endocrine Surgery: No Eye Surgery: No Genitourinary Surgery: No Gynecologic Surgery: No Insulin Pump: No Joint Replacement: No Oral Surgery: Yes (2 POLYPS REMOVED FROM GUMS ) Pacemaker: No Thoracic Surgery: No Other Surgery: Yes (HEMORRHOIDECTOMY) Social History Alcohol Use: No Tobacco Use: No Substance Use: No Allergies-Medications (Allergen,Severity, Reaction): Coded Allergies: cephalexin (Unverified Allergy, Severe, ANAPHYLAXIS, 07/10/17) cat dander (Unverified Allergy, Intermediate, rhinitis, 07/10/17) grass pollen (Unverified Allergy, Intermediate, "Pollen Allergy" per patient report, 07/10/17) house dust (Unverified Allergy, Intermediate, environmental allergy, ) mold (Unverified Allergy, Intermediate, environmental , 07/10/17) pregabalin (Unverified Allergy, Intermediate, rash, 07/10/17) Sulfa (Sulfonamide Antibiotics) (Unverified Allergy, Mild, oral sores, 05/15) penicillin G (Unverified Allergy, Mild, itching, 07/10/17) gabapentin (Unverified Adverse Reaction, Mild, falls, 07/10/17) Reported Meds & Prescriptions Reported Meds & Active Scripts Active Reported Vitamin B-12 (Cyanocobalamin) 500 Mcg Tab 1,000 Mcg PO DAILY Gabapentin 300 Mg Cap 300 Mg PO TID Ibuprofen 800 Mg Tab 800 Mg PO TID Azathioprine 50 Mg Tab 25 Mg PO DAILY Hazardous agent use appropriate precautions for handling and disposal. Furosemide 20 Mg Tab 20 Mg PO BID Hydroxyzine Pamoate 25 Mg Cap 25 Mg PO BID Sumatriptan (Sumatriptan Succinate) 100 Mg Tab 100 Mg PO ONCE PRN If a satisfactory response has not been obtained at 2 hours, a second dose may be administered Effexor (Venlafaxine HCl) 75 Mg Tab 75 Mg PO BID Oxycodone-Acetaminophen 10-325 mg Tab 1 Tab PO TID PRN Metoprolol Tartrate 25 Mg Tab 25 Mg PO BID Latanoprost Opth Drops (Latanoprost) 0.005% Drops 1 Drop EACH EYE HS Refrigerate until opened. Hydroxychloroquine (Hydroxychloroquine Sulfate) 200 Mg Tab 200 Mg PO DAILY Takw with food Bupropion Sr 12 HR (Bupropion ER 12 HR (Smoking Deterrent)) 150 Mg Tab 150 Mg PO HS Take 1 tablet daily x 3 days then twice daily thereafter. Tizanidine (Tizanidine HCl) 4 Mg Tab 4 Mg PO BID PRN K-Tab (Potassium Chloride) 10 Meq Tab 10 Meq PO BID Ropinirole 2 Mg Tab 4 Mg PO BID Review of Systems Except as stated in HPI: all other systems reviewed are Neg HENT: Positive: Other (TMJ syndrome) Physical Exam Narrative GENERAL: Awake and alert and in no acute distress. Halo is in place. SKIN: Warm and dry. HEAD: Normocephalic/atraumatic. EYES: Pupils are equal. Extraocular movements are intact. ENT: Patient is able to open her mouth such that I can see her uvula could not sit up. NECK: Neck has no range of motion because it is immobilized by a Halo. Delivery RESPIRATORY: Nonlabored respirations. MUSCULOSKELETAL: Atraumatic. NEUROLOGICAL: Nonfocal. PSYCHIATRIC: Appropriate mood and affect. Data Data Last Documented VS Vital Signs Date Time Temp Pulse Resp B/P (MAP) Pulse Ox O2 Delivery O2 Flow Rate FiO2 07/11/17 09:47 98.3 69 16 175/119 (620) 99 Room Air Orders Orders Consent (07/11/17 10:15) Propofol 200 Mg/20 Ml Inj (Diprivan 200 (07/11/17 10:15) [facility] Request For Service (07/11/17 10:29) MDM Medical Decision Making Medical Screen Exam Complete: Yes Emergency Medical Condition: Yes Differential Diagnosis Differential diagnosis includes anxiety, pain, poor pain tolerance Narrative Course This patient presents requesting conscious sedation for removal of her halo. I will provide the conscious sedation while the [facility] removes the halo. She will be sedated with propofol. Procedures Procedure Narrative After the risks and benefits were discussed the following procedure was performed: MODERATE SEDATION: The patient was placed on a strike warfare/missile systems officer and pulse oximetry. An ambu bag and suction were immediately available at bedside. The patient was monitored by the nurse and respiratory therapy. Oxygen saturation, end tidal CO2, heart rate and blood pressure were monitored. Procedural sedation was acheived using propofol. The patient was observed until awake and alert. Procedural Sedation time in attendance was 20 minutes. Diagnosis Primary Impression: Situational anxiety Disposition: 01 DISCHARGE HOME Condition: Stable Dolores Preston MD Jul 11, 2017 10:21
[2017-07-11 11:52] VITALS: BP 178/76
== END 2017-07-11 11:52 | disposition home or self-care (01) ==
LOC: NEPD 09:44
DX: F41.8 Other specified anxiety disorders (principal); J45.909 Unspecified asthma, uncomplicated; M32.9 Systemic lupus erythematosus, unspecified; E78.00 Pure hypercholesterolemia, unspecified; F32.9 Major depressive disorder, single episode, unspecified; M79.7 Fibromyalgia; I10 Essential (primary) hypertension; Z88.0 Allergy status to penicillin; Z88.2 Allergy status to sulfonamides; Z88.8 Allergy status to other drugs, medicaments and biological substances; Z91.048 Other nonmedicinal substance allergy status
CPT/HCPCS: 99152; 99285

== ENCOUNTER 2017-11-09 10:29 | Emergency (ER) | payer OTHER ==
[2017-11-09 10:51] VITALS: BP 206/88; PULSE 106; RESP 18; TEMP 97.9; O2SAT 97
--- NOTE | 2017-11-09 11:13 | PD ---
HPI Chief Complaint: Fall Time Seen by Provider: 11:03 Travel History International Travel<30 days: No Contact w/Intl Traveler<30days: No Traveled to known affect area: No History of Present Illness HPI 67-year-old female presents emergency department for evaluation of her neck and head. Patient has been having several falls over the last several weeks. Her primary care provider is working this about patient and yesterday he decided that it was secondary to a medication for her restless legs. He did stop this however he recommended the patient come to the emergency department for CT imaging of her head and neck due to the frequent falls. Her most fall being a week and a half ago. During that fall she did fall backwards and hit her head and neck. Patient does ambulate with a walker at home but states the walker "just falls with her." She does not lose consciousness. She has no other symptoms to report. PFSH Past Medical History Hx Anticoagulant Therapy: No Arthritis: Yes Asthma: Yes Autoimmune Disease: Yes (LUPUS ) Blood Disorders: No Anxiety: Yes Depression: Yes Cancer: No Cardiovascular Problems: No High Cholesterol: Yes COPD: No Cerebrovascular Accident: No Diabetes: No Diminished Hearing: No Endocrine: No Fibromyalgia: Yes Gastrointestinal Disorders: Yes GERD: Yes Glaucoma: Yes Gout: Yes Genitourinary: No Headaches: Yes Hiatal Hernia: Yes Hypertension: Yes Immune Disorder: No Implanted Vascular Access Dvce: No Musculoskeletal: Yes (LEFT ELBOW FX, C1-C2 FX) Neurologic: Yes (NEUROPATHY) Psychiatric: Yes Reproductive: No Respiratory: Yes Immunizations Current: Yes Migraines: Yes Seizures: No Sleep Apnea: No Ulcer: Yes ?: Not Menopausal: Yes Past Surgical History Abdominal Surgery: No AICD: No Arteriovenous Shunt: No Cardiac Surgery: No Ear Surgery: No Endocrine Surgery: No Eye Surgery: No Genitourinary Surgery: No Gynecologic Surgery: No Insulin Pump: No Joint Replacement: No Neurologic Surgery: No Oral Surgery: Yes (2 POLYPS REMOVED FROM GUMS ) Pacemaker: No Thoracic Surgery: No Other Surgery: Yes (HEMORRHOIDECTOMY) Social History Alcohol Use: No Tobacco Use: No Substance Use: No Allergies-Medications (Allergen,Severity, Reaction): Coded Allergies: cephalexin (Unverified Allergy, Severe, ANAPHYLAXIS, 11/09/17) cat dander (Unverified Allergy, Intermediate, rhinitis, 11/09/17) grass pollen (Unverified Allergy, Intermediate, "Pollen Allergy" per patient report, 11/09/17) house dust (Unverified Allergy, Intermediate, environmental allergy, ) mold (Unverified Allergy, Intermediate, environmental , 11/09/17) pregabalin (Unverified Allergy, Intermediate, rash, 11/09/17) Sulfa (Sulfonamide Antibiotics) (Unverified Allergy, Mild, oral sores, ) penicillin G (Unverified Allergy, Mild, itching, 11/09/17) gabapentin (Unverified Adverse Reaction, Mild, falls, 11/09/17) Reported Meds & Prescriptions Reported Meds & Active Scripts Active Reported [place] (Hydrocodone-Acetaminophen) 10-325 Mg Tab 1 Tab PO Q6H PRN Mucus Relief ER (Guaifenesin) 600 Mg Tab 600 Mg PO BID PRN Mack Mag Zinc + D3 (Multiple Vitamins W/ Minerals) 1 Tab 1 Tab PO DAILY Pramipexole (Pramipexole Dihydrochloride) 1.5 Mg Tab 1.5 Mg PO HS Clonidine (Clonidine HCl) 0.1 Mg Tab 0.1 Mg PO BID Sentry (Multiple Vitamins W/ Minerals) 18 Mg-500 Mcg-300 Mcg-250 Mcg Tab 1 Tab PO DAILY Colace (Docusate Sodium) 100 Mg Capsule 100 Mg PO DAILY Ropinirole 4 Mg Tab 8 Mg PO BID Take 2 tablets (8mg) at 12noon and at bedtime Furosemide 20 Mg Tab 20 Mg PO BID Hydroxyzine Pamoate 25 Mg Cap 25 Mg PO TID PRN Effexor (Venlafaxine HCl) 75 Mg Tab 150 Mg PO BID Metoprolol Tartrate 25 Mg Tab 25 Mg PO TID Latanoprost Opth Drops (Latanoprost) 0.005% Drops 1 Drop EACH EYE HS Refrigerate until opened. Bupropion Sr 12 HR (Bupropion ER 12 HR (Smoking Deterrent)) 150 Mg Tab 150 Mg PO BID K-Tab (Potassium Chloride) 10 Meq Tab 10 Meq PO BID Review of Systems Except as stated in HPI: all other systems reviewed are Neg Physical Exam Narrative GENERAL: Well-nourished elderly female patient, no acute distress SKIN: Focused skin assessment warm/dry. Multiple ecchymotic spots of different healing times on the extremities. HEAD: Atraumatic. Normocephalic. EYES: Pupils equal and round. No scleral icterus. No injection or drainage. ENT: No nasal bleeding or discharge. Mucous membranes pink and moist. NECK: Trachea midline. No JVD. No cervical spine tenderness. Patient has full range of motion of the cervical spine. CARDIOVASCULAR: Regular rate and rhythm. 2/6 systolic murmur appreciated. RESPIRATORY: No accessory muscle use. Clear to auscultation. Breath sounds equal bilaterally. GASTROINTESTINAL: Abdomen soft, non-tender, nondistended. Hepatic and splenic margins not palpable. MUSCULOSKELETAL: No obvious deformities. No clubbing. No cyanosis. No edema. NEUROLOGICAL: Awake and alert. No obvious cranial nerve deficits. Motor grossly within normal limits. Normal speech. PSYCHIATRIC: Appropriate mood and affect; insight and judgment normal. Data Data Last Documented VS Vital Signs Date Time Temp Pulse Resp B/P (MAP) Pulse Ox O2 Delivery O2 Flow Rate FiO2 11/09/17 13:38 90 18 179/89 (119) 98 11/09/17 10:[address] Brain W/O Iv Contrast(Rout) (11/09/17 ) Ct Cerv Spine W/O Contrast (11/09/17 ) Shoulder, Complete (>2vws) (11/09/17 ) Ed Discharge Order (11/09/17 13:08) MDM Medical Decision Making Medical Screen Exam Complete: Yes Emergency Medical Condition: Yes Medical Record Reviewed: Yes Differential Diagnosis Normal exam versus cervical strain versus fracture versus intracranial hemorrhage Narrative Course 67-year-old female presents to the emergency department for evaluation following multiple falls. Patient has no focal deficits or weakness. Her last fall was a week and half ago. Patient is concerned because she does have recent C-spine fracture followed by Dr. Khalil. She reports no pain. There is no cervical spine tenderness. Last Impressions Shoulder X-Ray 11/09/17 0000 Signed Impressions: CONCLUSION: Osteoarthritis without acute abnormality. Head CT 11/09/17 0000 Signed Impressions: CONCLUSION: 1. Negative CT Head non contrast. Cervical Spine CT 11/09/17 0000 Signed Impressions: CONCLUSION: 1. No acute fracture or prevertebral soft tissue swelling. 2. Ununited fractures involving the anterior arch of C1 and the base of the od ontoid process. 3. Chronic grade I anterolisthesis of C3 in relation to C4 and C4 in relation to C5. 4. Diffuse cervical spondylosis. 5. Moderate bilateral foraminal narrowing is noted at C3-4 and C5-6. I discussed the patient in the findings with my attending physician. She too has assessed the patient. patient will be discharged home. Patient is provided a taxi pass to get home. She is encouraged to follow-up with primary care provider and Dr. Khalil. She agrees to return immediately with acute worsening symptoms. Diagnosis Primary Impression: Frequent falls Additional Impression: Shoulder pain, left Qualified Codes: M25.512 - Pain in left shoulder Referrals: Neurosurgeon Orthopaedic Surgeon Primary Care Physician Patient Instructions: General Instructions, Shoulder Sprain (ED) Additional Instructions: Ice and/or warm moist heat may help to alleviate symptoms Make sure you are walking with either your walker or your cane Discuss with your primary care provider alternative options for moving around her home Tylenol or ibuprofen as directed on the package as needed for pain Return immediately with any acute worsening symptoms Med/Other Pt SpecificInfo: No Change to Meds Disposition: 01 DISCHARGE HOME Condition: Stable [facility] Nov 09, 2017 11:13
--- NOTE | 2017-11-09 11:36 | RADRPT ---
EXAM DATE: 11/09/2017 11:32 AM EDT AGE/SEX: 67 years / Female INDICATIONS: Trauma; fell backwards out of bathtub. CLINICAL DATA: This is the patient's initial encounter. Patient reports that signs and symptoms have been present for 1 day and indicates a pain score of 3/10. MEDICAL/SURGICAL HISTORY: Lupus. Hypertension. Asthma. Neuropathy. None. RADIATION DOSE: 56.35 CTDI (mGy) COMPARISON: [facility], CT BRAIN W/O CONTRAST, 05/22/2017. . TECHNIQUE: CT of the head without contrast. Using automated exposure control and adjustment of the mA and/or kV according to patient size, radiation dose was kept as low as reasonably achievable to ob tain optimal diagnostic quality images. FINDINGS: Cerebrum: The ventricles are normal for age. No evidence of midline shift, mass lesion, hemorrhage or acute infarction. No extraaxial fluid collections are seen. Posterior Fossa: The cerebellum and brainstem are intact. The 4th ventricle is midline. The cerebe llopontine angle is unremarkable. Extracranial: The visualized portion of the orbits is intact. Skull: The calvaria is intact. No evidence of skull fracture. CONCLUSION: 1. Negative CT Head non contrast. Electronically signed by: Torito Huang MD 11/09/2017 11:35 AM EDT
[2017-11-09] MEDS ORDERED: MULT-116 PO (11:40)
[2017-11-09] MEDS ORDERED: COLA100C5 PO (11:40)
[2017-11-09] MEDS ORDERED: HYDR-3366 PO (11:40)
[2017-11-09] MEDS ORDERED: ROPI4TAB PO (11:40)
[2017-11-09] MEDS ORDERED: MULT-106 PO (11:40)
[2017-11-09] MEDS ORDERED: GUAI600T11 PO (11:40)
[2017-11-09] MEDS ORDERED: CLON0.1T PO (11:40)
[2017-11-09] MEDS ORDERED: PRAM1.5T PO (11:40)
--- NOTE | 2017-11-09 12:08 | RADRPT ---
EXAM DATE: 11/09/2017 11:46 AM EDT AGE/SEX: 67 years / Female INDICATIONS: Trauma; fell backwards out of bathtub. CLINICAL DATA: This is the patient's initial encounter. Patient reports that signs and symptoms have been present for 1 day and indicates a pain score of 7/10. MEDICAL/SURGICAL HISTORY: Lupus. Asthma. Hypertension. Neuropathy. None. RADIATION DOSE: 21.52 CTDI (mGy) COMPARISON: [facility], CT CERVICAL SPINE W/O CONTRAST, 05/22/2017. [facility], CT CERVICAL SPINE W/O CONTR AST, 04/29/2017. . TECHNIQUE: Contiguous axial images were obtained using helical multirow detector technique. The vol umetric data was post-processed with multiplanar reconstruction in oblique axial, sagittal, and coron al planes. Using automated exposure control and adjustment of the mA and/or kV according to patient s ize, radiation dose was kept as low as reasonably achievable to obtain optimal diagnostic quality terrance ges. FINDINGS: There is evidence of ununited fractures involving the anterior arch of C1 and the base of t he odontoid process. No acute fracture is noted. There is evidence of chronic grade I anterolisthesis of C3 in relation to C4 and C4 in relation to C5. Diffuse cervical spondylosis is noted. No spinal s tenosis is noted. Moderate bilateral foraminal narrowing is noted at C3-4 and C5-6. CONCLUSION: 1. No acute fracture or prevertebral soft tissue swelling. 2. Ununited fractures involving the anterior arch of C1 and the base of the odontoid process. 3. Chronic grade I anterolisthesis of C3 in relation to C4 and C4 in relation to C5. 4. Diffuse cervical spondylosis. 5. Moderate bilateral foraminal narrowing is noted at C3-4 and C5-6. Electronically signed by: Fredis Rockwell MD 11/09/2017 12:06 PM EDT
--- NOTE | 2017-11-09 13:00 | RADRPT ---
EXAM DATE: 11/09/2017 12:12 PM EDT AGE/SEX: 67 years / Female INDICATIONS: Patient complaining of left lateral shoulder pain post fall a week and a half ago. CLINICAL DATA: This is the patient's initial encounter. Patient reports that signs and symptoms have been present for 1 week and indicates a pain score of 10/10. MEDICAL/SURGICAL HISTORY: None. None. COMPARISON: [facility], SHOULDER LEFT COMPLETE (>2VWS), 04/29/2017. . FINDINGS: 5 views of the left shoulder reveal advanced osteoarthritis involving the glenohumeral joint. Mild os teoarthritis involving the acromioclavicular joint. No fractures or dislocations. No high riding maddy ral head. Soft tissues are unremarkable. CONCLUSION: Osteoarthritis without acute abnormality. Electronically signed by: Fritz Campos MD 11/09/2017 12:59 PM EDT
--- NOTE | 2017-11-09 13:09 | PD ---
Physical Exam Date Seen by Provider: Nov 09, 2017 Narrative This patient presents for the evaluation of a possible neck injury. She reports frequent falls. She has had a previous C-spine fracture. Data Data Last Documented VS Vital Signs Date Time Temp Pulse Resp B/P (MAP) Pulse Ox O2 Delivery O2 Flow Rate FiO2 11/09/17 10:51 97.9 106 18 206/88 (127) [address] Brain W/O Iv Contrast(Rout) (11/09/17 ) Ct Cerv Spine W/O Contrast (11/09/17 ) Shoulder, Complete (>2vws) (11/09/17 ) MDM Supervised Visit with JEANNE: Yes Narrative Course I, Dr. Preston, have reviewed the advance practice practitioner's documentation and am in agreement, met with the patient face to face, made the diagnosis, and the medical decision making was done by me. *My assessment and Findings: Patient is awake and alert. She is noted to be moving her head without difficulty. Last Impressions Shoulder X-Ray 11/09/17 0000 Signed Impressions: CONCLUSION: Osteoarthritis without acute abnormality. Head CT 11/09/17 0000 Signed Impressions: CONCLUSION: 1. Negative CT Head non contrast. Cervical Spine CT 11/09/17 0000 Signed Impressions: CONCLUSION: 1. No acute fracture or prevertebral soft tissue swelling. 2. Ununited fractures involving the anterior arch of C1 and the base of the od ontoid process. 3. Chronic grade I anterolisthesis of C3 in relation to C4 and C4 in relation to C5. 4. Diffuse cervical spondylosis. 5. Moderate bilateral foraminal narrowing is noted at C3-4 and C5-6. Please see [facility] [employer] DNP's note for a more detailed H&P, final diagnosis and disposition Dolores Preston MD Nov 09, 2017 13:09
[2017-11-09 13:38] VITALS: BP 179/89
== END 2017-11-09 13:48 | disposition home or self-care (01) ==
LOC: NEPE 10:29
DX: M25.512 Pain in left shoulder (principal); R29.6 Repeated falls; G25.81 Restless legs syndrome; J45.909 Unspecified asthma, uncomplicated; M32.9 Systemic lupus erythematosus, unspecified; F32.9 Major depressive disorder, single episode, unspecified; E78.00 Pure hypercholesterolemia, unspecified; M79.7 Fibromyalgia; I10 Essential (primary) hypertension
CPT/HCPCS: 70450; 72125; 73030

== ENCOUNTER 2017-11-12 20:42 | Emergency (ER) | payer OTHER ==
[~2017-11-12 20:42] MED LIST changes: -AZAT50 PO; +CLON0.1T PO; +COLA100C5 PO; -GABA300C5 PO; +GUAI600T11 PO; +HYDR-3366 PO; -HYDR200T3 PO; -IBUP1TAB7 PO; +MULT-106 PO; +MULT-116 PO; -OXYC1TAB36 PO; +PRAM1.5T PO; -ROPI2TAB PO; +ROPI4TAB PO; -SUMA100T2 PO; -TIZA4TAB PO; -VITA500T4 PO
[2017-11-12 20:53] VITALS: BP 192/113; PULSE 87; RESP 18; TEMP 97.7; O2SAT 100
[2017-11-12] MEDS ORDERED: LORazepam 1 MG TAB PO ONE (22:00)
--- NOTE | 2017-11-12 22:19 | PD ---
HPI Chief Complaint: Fall Time Seen by Provider: 21:15 Travel History International Travel<30 days: No Contact w/Intl Traveler<30days: No Traveled to known affect area: No History of Present Illness HPI Patient is a 67-year-old female that presented to emergency department stating that she has not slept in 37 years. Patient is requesting a pill to help her sleep. Patient states that her primary doctor took her off of her pain medication and her restless leg medicine. She states he felt that this is why she is falling. Patient reports a history of chronic fatigue, restless leg, rheumatoid arthritis, fibromyalgia, hypertension. She has no new emergent complaints today. PFSH Past Medical History Hx Anticoagulant Therapy: No Arthritis: Yes (RA) Asthma: Yes Autoimmune Disease: Yes (LUPUS ) Blood Disorders: No Anxiety: Yes Depression: Yes Cancer: No Cardiovascular Problems: No High Cholesterol: Yes COPD: Yes Cerebrovascular Accident: No Diabetes: No Diminished Hearing: No Endocrine: No Fibromyalgia: Yes Gastrointestinal Disorders: Yes GERD: Yes Glaucoma: Yes Gout: Yes Genitourinary: No Headaches: Yes Hiatal Hernia: Yes Hypertension: Yes Musculoskeletal: Yes (LEFT ELBOW FX, C1-C2 FX, CHRONIC NECK PAIN ) Neurologic: Yes (NEUROPATHY) Psychiatric: Yes Reproductive: No Respiratory: Yes Immunizations Current: Yes Migraines: Yes Ulcer: Yes Menopausal: Yes Past Surgical History Abdominal Surgery: No AICD: No Arteriovenous Shunt: No Cardiac Surgery: No Ear Surgery: No Endocrine Surgery: No Eye Surgery: No Genitourinary Surgery: No Gynecologic Surgery: No Joint Replacement: No Neurologic Surgery: No Oral Surgery: Yes (2 POLYPS REMOVED FROM GUMS ) Thoracic Surgery: No Other Surgery: Yes (HEMORRHOIDECTOMY) Social History Alcohol Use: No Tobacco Use: No Substance Use: No Allergies-Medications (Allergen,Severity, Reaction): Coded Allergies: cephalexin (Unverified Allergy, Severe, ANAPHYLAXIS, 11/12/17) cat dander (Unverified Allergy, Intermediate, rhinitis, 11/12/17) grass pollen (Unverified Allergy, Intermediate, "Pollen Allergy" per patient report, 11/12/17) house dust (Unverified Allergy, Intermediate, environmental allergy, ) mold (Unverified Allergy, Intermediate, environmental , 11/12/17) pregabalin (Unverified Allergy, Intermediate, rash, 11/12/17) Sulfa (Sulfonamide Antibiotics) (Unverified Allergy, Mild, oral sores, ) penicillin G (Unverified Allergy, Mild, itching, 11/12/17) gabapentin (Unverified Adverse Reaction, Mild, falls, 11/12/17) Reported Meds & Prescriptions Reported Meds & Active Scripts Active Reported [place] (Hydrocodone-Acetaminophen) 10-325 Mg Tab 1 Tab PO Q6H PRN Mucus Relief ER (Guaifenesin) 600 Mg Tab 600 Mg PO BID PRN Mack Mag Zinc + D3 (Multiple Vitamins W/ Minerals) 1 Tab 1 Tab PO DAILY Pramipexole (Pramipexole Dihydrochloride) 1.5 Mg Tab 1.5 Mg PO HS Clonidine (Clonidine HCl) 0.1 Mg Tab 0.1 Mg PO BID [place] (Multiple Vitamins W/ Minerals) 18 Mg-500 Mcg-300 Mcg-250 Mcg Tab 1 Tab PO DAILY Colace (Docusate Sodium) 100 Mg Capsule 100 Mg PO DAILY Ropinirole 4 Mg Tab 8 Mg PO BID Take 2 tablets (8mg) at 12noon and at bedtime Furosemide 20 Mg Tab 20 Mg PO BID Hydroxyzine Pamoate 25 Mg Cap 25 Mg PO TID PRN Effexor (Venlafaxine HCl) 75 Mg Tab 150 Mg PO BID Metoprolol Tartrate 25 Mg Tab 25 Mg PO TID Latanoprost Opth Drops (Latanoprost) 0.005% Drops 1 Drop EACH EYE HS Refrigerate until opened. Bupropion Sr 12 HR (Bupropion ER 12 HR (Smoking Deterrent)) 150 Mg Tab 150 Mg PO BID K-Tab (Potassium Chloride) 10 Meq Tab 10 Meq PO BID Review of Systems Except as stated in HPI: all other systems reviewed are Neg Cardiovascular: No: Chest Pain or Discomfort Respiratory: No: Shortness of Breath Gastrointestinal: No: Abdominal Pain Musculoskeletal: Positive: Other (Restless leg) Physical Exam Narrative GENERAL: Obese, well-developed, alert elderly female. Presenting in no acute distress. SKIN: Warm and dry. HEAD: Atraumatic. Normocephalic. EYES: Pupils equal and round. No scleral icterus. No injection or drainage. ENT: No nasal bleeding or discharge. Mucous membranes pink and moist. NECK: Trachea midline. No JVD. CARDIOVASCULAR: Regular rate and rhythm. RESPIRATORY: No accessory muscle use. Clear to auscultation. Breath sounds equal bilaterally. GASTROINTESTINAL: Abdomen soft, non-tender, nondistended. Hepatic and splenic margins not palpable. MUSCULOSKELETAL: Extremities without clubbing, cyanosis, or edema. No obvious deformities. NEUROLOGICAL: Awake and alert. No obvious cranial nerve deficits. Motor grossly within normal limits. Five out of 5 muscle strength in the arms and legs. Normal speech. Gait was steady with cane PSYCHIATRIC: Appropriate mood and affect; insight and judgment normal. Data Data Last Documented VS Vital Signs Date Time Temp Pulse Resp B/P (MAP) Pulse Ox O2 Delivery O2 Flow Rate FiO2 11/12/17 20:53 97.7 87 18 192/113 (139) 100 Orders Orders Lorazepam (Ativan) (11/12/17 22:00) [facility] Medical Decision Making Medical Screen Exam Complete: Yes Emergency Medical Condition: Yes Interpretation(s) Vital Signs Date Time Temp Pulse Resp B/P (MAP) Pulse Ox O2 Delivery O2 Flow Rate FiO2 11/12/17 20:53 97.7 87 18 192/113 (139) 100 Differential Diagnosis Muscle spasm versus restless leg versus neurological disorder versus drug- seeking versus other Narrative Course Patient is a 67-year-old female presenting for something to help her sleep. Her primary doctor recently reduced and discontinued some of her home medications. Patient has no new emergent complaints. Ativan 1 mg p.o. ordered 1 dose. Patient did not receive Ativan, she was no longer in the room nor was her . Patient eloped/left AMA. Diagnosis Primary Impression: Left against medical advice Patient Instructions: General Instructions Departure Forms: Tests/Procedures Disposition: 07 AGAINST MEDICAL ADVICE Melody Yeager Nov 12, 2017 22:19
== END 2017-11-12 22:00 | disposition left against medical advice (07) ==
LOC: NEPE 20:42
DX: G47.00 Insomnia, unspecified (principal); F41.9 Anxiety disorder, unspecified; F32.9 Major depressive disorder, single episode, unspecified; E78.00 Pure hypercholesterolemia, unspecified; J44.9 Chronic obstructive pulmonary disease, unspecified; M32.9 Systemic lupus erythematosus, unspecified; M06.9 Rheumatoid arthritis, unspecified; I10 Essential (primary) hypertension; M79.7 Fibromyalgia; K21.9 Gastro-esophageal reflux disease without esophagitis; H40.9 Unspecified glaucoma; G25.81 Restless legs syndrome; R53.82 Chronic fatigue, unspecified; Z53.20 Procedure and treatment not carried out because of patient's decision for unspecified reasons
CPT/HCPCS: 99281

== ENCOUNTER 2018-01-18 13:02 | Inpatient (IN) ==
--- NOTE | 2018-01-18 13:29 | ED ---
HPI General Chief Complaint: Psychiatric Symptoms Stated Complaint: Psych eval / POPD Time Seen by Provider: 01/18/18 16:02 Source: patient Mode of arrival: ambulatory Limitations: no limitations History of Present Illness HPI Narrative: 67-year-old female presents via EMS under Montejo act. According to the Montejo act report the patient had advised that she is in a lot of pain and does not want to live anymore. While on seen the patient stated if she had a weapon she would not be here anymore. On my evaluation the patient that she feels suicidal and thinks of many ways but does not act upon her thoughts. Denies history of suicidal attempts. Denies current plan. Denies toxic ingestions. Denies homicidal ideations. Denies auditory or visual hallucinations. Denies illicit drug use, tobacco use. Reports occasional alcohol use. Denies chest pain, shortness breath, abdominal pain, nausea, vomiting, change in urine or stool. Is complaining of chronic pain from the "tip of her toes to the top of her head." Reports history of fibromyalgia, RA, lupus, hypertension. Has not taken her metoprolol today. Symptoms are moderate to severe in severity. Aggravated by chronic pain. Takes hydrocodone and ibuprofen for her pain, but says the only thing that works is Dilaudid. Onset unknown. Duration chronic. Primary care provider is Keily. Psychiatric history of bipolar disorder. Has no other medical complaints. No other modifying factors or associated signs and symptoms. Related Data Home Medications Medication Instructions Recorded Confirmed bupropion HCl 150 mg PO BID 11/29/17 01/18/18 docusate sodium 100 mg PO DAILY 11/29/17 01/18/18 hydrocodone-acetaminophen 1 tab PO Q6H PRN 11/29/17 01/18/18 potassium chloride 10 meq PO BID 11/29/17 01/18/18 pramipexole 0.5 mg PO TID 11/29/17 01/18/18 ibuprofen 800 mg PO BID PRN 01/18/18 01/18/18 metoprolol tartrate 25 mg PO TID 01/18/18 01/18/18 pramipexole 1.5 mg PO HS 01/18/18 01/18/18 tizanidine 4 mg PO BID 01/18/18 01/18/18 venlafaxine 150 mg PO BID 01/18/18 01/18/18 Allergies Allergy/AdvReac Type Severity Reaction Status Date / Time cephalexin Allergy Severe ANAPHYLAXIS Verified 01/18/18 13:14 cat dander Allergy Intermediate rhinitis Verified 01/18/18 13:14 grass pollen Allergy Intermediate "Pollen Verified 01/18/18 13:14 Allergy" per patient report house dust Allergy Intermediate environmental Verified 01/18/18 13:14 allergy mold Allergy Intermediate environment Verified 01/18/18 13:14 al pregabalin Allergy Intermediate rash Verified 01/18/18 13:14 penicillin G Allergy Mild itching Verified 01/18/18 13:14 Sulfa (Sulfonamide Allergy Mild oral sores Verified 01/18/18 13:14 Antibiotics) gabapentin AdvReac Mild falls Verified 01/18/18 13:14 Review of Systems ROS: all other systems reviewed are negative [facility] Medical History Medical History Plantar fasciitis, bilateral (Acute) C1 cervical fracture (Acute) Depression (Acute) Elbow fracture, left (Acute) FH: total knee replacement (Acute) Fibromyalgia (Acute) Glaucoma (Acute) High blood pressure (Acute) Lupus (Acute) Migraine (Acute) Osteoporosis (Acute) Restless leg syndrome (Acute) Rheumatoid arthritis (Acute) Sleep disorder (Acute) Surgical History Surgical History History of total right knee replacement (Acute) Family History Family History Other Family history of brain aneurysm Social History Social History Substance History: No History of Abuse Second Hand Smoke Exposure: No Smoking Status: Never smoker How Often Do You Have a Drink Containing Alcohol: Monthly or less Recent Travel in [facility] within the Last 8 Weeks: No Recent Out of Country Travel within the Last 8 Weeks: No Immunization History Tetanus Immunization: Unsure Exam Narrative Exam Narrative: GENERAL: Well-nourished, well-developed female patient , in no acute distress SKIN: Warm and dry. HEAD: Atraumatic. Normocephalic. EYES: Pupils equal and round. ENT: Mucosa pink and moist. NECK: Supple. Trachea midline. CARDIOVASCULAR: Regular rate and rhythm. No murmur appreciated. 3+ radial pulses. RESPIRATORY: No accessory muscle use. Clear to auscultation. Breath sounds equal bilaterally. GASTROINTESTINAL: Abdomen soft, non-tender, nondistended. Hepatic and splenic margins not palpable. Bowel sounds are active 4 quadrants. MUSCULOSKELETAL: No obvious deformities. No clubbing. No cyanosis. No edema. BACK: No CVA tenderness. NEUROLOGICAL: Awake and alert. Oriented 3. No obvious cranial nerve deficits. Motor grossly within normal limits. Normal speech. Moves all extremities. 5/5 strength to all extremities. PSYCHIATRIC: No delusional thought processes. No hallucinations. Course Initial Documented Vital Signs Temperature 98.6 F 01/18/18 13:08 Pulse Rate 88 01/18/18 13:08 Respiratory Rate 18 01/18/18 13:08 Blood Pressure 207/93 H 01/18/18 13:08 Pulse Oximetry 100 01/18/18 13:08 Last Documented Vital Signs Temperature 97.9 F 01/19/18 16:27 Pulse Rate 57 L 01/19/18 18:10 Respiratory Rate 22 01/19/18 16:27 Blood Pressure 206/87 H 01/19/18 18:10 Pulse Oximetry 98 01/19/18 16:27 Medical Decision Making MDM Narrative Medical decision making narrative: Patient presents under a Montejo act. Physical examination and vital signs are essentially unremarkable. Patient has no medical complaints to report. Psych screen has been ordered. If the laboratory results are unremarkable, the patient will be medically cleared for psychiatric evaluation and disposition. 1525: BUN and creatinine are elevated. I reviewed the patient's record and BUN and creatinine levels are consistent with past levels. Patient medically cleared for psychiatric disposition. Medical Screen Exam Complete: Yes Emergency Medical Condition: Yes Differential Diagnosis Differential Diagnosis: Chronic pain, suicidal ideation, medical clearance for psychiatric evaluation Lab Data Result diagrams: 01/18/18 14:02 01/19/18 08:53 Lab Results 01/18/18 01/18/18 01/18/18 Range/Units 14:02 14:02 14:02 WBC 5.0 (4.0-11.0) th/mm3 RBC 4.13 (4.00-5.30) mil/mm3 Hgb 12.3 (11.6-15.3) gm/dL Hct 37.2 (35.0-46.0) % MCV 90.2 (80.0-100.0) fL MCH 29.8 (27.0-34.0) pg MCHC 33.0 (32.0-36.0) % RDW 14.7 (11.6-17.2) % Plt Count 176 (150-450) th/mm3 MPV 7.5 (7.0-11.0) fL Neut % (Auto) 61.4 (16.0-70.0) % Lymph % (Auto) 21.9 (9.0-44.0) % [place] % (Auto) 9.8 H (0.0-8.0) % Eos % (Auto) 6.1 H (0.0-4.0) % Baso % (Auto) 0.8 (0.0-2.0) % Neut # (Auto) 3.1 (1.8-7.7) th/mm3 Lymph # (Auto) 1.1 (1.0-4.8) th/mm3 [place] # (Auto) 0.5 (0.0-0.9) th/mm3 Eos # (Auto) 0.3 (0.0-0.4) th/mm3 Baso # (Auto) 0.0 (0.0-0.2) th/mm3 WBC Differential . Differential Comment Auto diff final Sodium 144 (136-145) meq/L Potassium 3.8 (3.5-5.1) meq/L Chloride 109 H (98-107) meq/L Carbon Dioxide 28.1 (21.0-32.0) meq/L Anion Gap 7 (5-15) meq/L BUN 25 H (7-18) mg/dL Creatinine 1.11 H (0.50-1.00) mg/dL Estimated GFR 49 L (>89) mL/min Random Glucose 87 (74-106) mg/dL Hemoglobin A1c (4.3-6.0) % Calcium 8.5 (8.5-10.1) mg/dL Magnesium (1.5-2.5) mg/dL Total Bilirubin 0.3 (0.2-1.0) mg/dL AST 39 H (15-37) U/L ALT 34 (10-53) U/L Alkaline Phosphatase 127 H (45-117) U/L Total Protein 7.4 (6.4-8.2) g/dL Albumin 3.5 (3.4-5.0) g/dL Triglycerides (42-150) mg/dL Cholesterol (120-200) mg/dL LDL Cholesterol, Calc (0-99) mg/dL HDL Cholesterol (40.0-60.0) mg/dL Cholesterol/HDL Ratio Ratio TSH 2.660 (0.358-3.740) uIU/mL Urine Color (Yellw/Straw) Urine Clarity (Clear) Urine pH (5.0-8.5) Ur Specific Mcloud (1.002-1.035) Urine Protein (Neg-Trace) mg/dL Urine Glucose (UA) (Negative) mg/dL Urine Ketones (Negative) mg/dL Urine Occult Blood (Negative) Urine Nitrate (Negative) Urine Bilirubin (Negative) Urine Urobilinogen (Less than 2) mg/dL Ur Leukocyte Esterase (Negative) Ur Squamous Epith Cells (0-5) /hpf Micro UA Comment Ur Microscopic Review Urine Culture Comments Salicylates Less than 1.7 L (2.8-20.0) mg/dL Urine Opiates Screen (Neg) Acetaminophen Less than 2.0 L (10.0-30.0) mcg/mL Ur Barbiturates Screen (Neg) Ur Amphetamines Screen (Neg) U Benzodiazepines Scrn (Neg) Urine Cocaine Screen (Neg) U Cannabinoids Screen (Neg) Serum Alcohol Less than 3 (0-5) mg/dL 01/18/18 01/18/18 01/19/18 Range/Units 14:02 14:02 08:53 WBC (4.0-11.0) th/mm3 RBC (4.00-5.30) mil/mm3 Hgb (11.6-15.3) gm/dL Hct (35.0-46.0) % MCV (80.0-100.0) fL MCH (27.0-34.0) pg MCHC (32.0-36.0) % RDW (11.6-17.2) % Plt Count (150-450) th/mm3 MPV (7.0-11.0) fL Neut % (Auto) (16.0-70.0) % Lymph % (Auto) (9.0-44.0) % [place] % (Auto) (0.0-8.0) % Eos % (Auto) (0.0-4.0) % Baso % (Auto) (0.0-2.0) % Neut # (Auto) (1.8-7.7) th/mm3 Lymph # (Auto) (1.0-4.8) th/mm3 [place] # (Auto) (0.0-0.9) th/mm3 Eos # (Auto) (0.0-0.4) th/mm3 Baso # (Auto) (0.0-0.2) th/mm3 WBC Differential Differential Comment Sodium 144 (136-145) meq/L Potassium 3.4 L (3.5-5.1) meq/L Chloride 106 (98-107) meq/L Carbon Dioxide 29.4 (21.0-32.0) meq/L Anion Gap 9 (5-15) meq/L BUN 22 H (7-18) mg/dL Creatinine 0.96 (0.50-1.00) mg/dL Estimated GFR 58 L (>89) mL/min Random Glucose 135 H (74-106) mg/dL Hemoglobin A1c (4.3-6.0) % Calcium 8.8 (8.5-10.1) mg/dL Magnesium (1.5-2.5) mg/dL Total Bilirubin (0.2-1.0) mg/dL AST (15-37) U/L ALT (10-53) U/L Alkaline Phosphatase (45-117) U/L Total Protein (6.4-8.2) g/dL Albumin (3.4-5.0) g/dL Triglycerides 174 H (42-150) mg/dL Cholesterol 184 (120-200) mg/dL LDL Cholesterol, Calc 91 (0-99) mg/dL HDL Cholesterol 58.2 (40.0-60.0) mg/dL Cholesterol/HDL Ratio 3.16 Ratio TSH (0.358-3.740) uIU/mL Urine Color Yellow (Yellw/Straw) Urine Clarity Clear (Clear) Urine pH 5.0 (5.0-8.5) Ur Specific Mcloud 1.012 (1.002-1.035) Urine Protein 30 H (Neg-Trace) mg/dL Urine Glucose (UA) Negative (Negative) mg/dL Urine Ketones Negative (Negative) mg/dL Urine Occult Blood Small H (Negative) Urine Nitrate Negative (Negative) Urine Bilirubin Negative (Negative) Urine Urobilinogen Less than 2 (Less than 2) mg/dL Ur Leukocyte Esterase Negative (Negative) Ur Squamous Epith Cells <1 (0-5) /hpf Micro UA Comment Culture not ind Ur Microscopic Review Not Reportable Urine Culture Comments Culture not ind Salicylates (2.8-20.0) mg/dL Urine Opiates Screen Pos H (Neg) Acetaminophen (10.0-30.0) mcg/mL Ur Barbiturates Screen Neg (Neg) Ur Amphetamines Screen Neg (Neg) U Benzodiazepines Scrn Neg (Neg) Urine Cocaine Screen Neg (Neg) U Cannabinoids Screen Neg (Neg) Serum Alcohol (0-5) mg/dL 01/19/18 01/19/18 Range/Units 08:53 08:53 WBC (4.0-11.0) th/mm3 RBC (4.00-5.30) mil/mm3 Hgb (11.6-15.3) gm/dL Hct (35.0-46.0) % MCV (80.0-100.0) fL MCH (27.0-34.0) pg MCHC (32.0-36.0) % RDW (11.6-17.2) % Plt Count (150-450) th/mm3 MPV (7.0-11.0) fL Neut % (Auto) (16.0-70.0) % Lymph % (Auto) (9.0-44.0) % [place] % (Auto) (0.0-8.0) % Eos % (Auto) (0.0-4.0) % Baso % (Auto) (0.0-2.0) % Neut # (Auto) (1.8-7.7) th/mm3 Lymph # (Auto) (1.0-4.8) th/mm3 [place] # (Auto) (0.0-0.9) th/mm3 Eos # (Auto) (0.0-0.4) th/mm3 Baso # (Auto) (0.0-0.2) th/mm3 WBC Differential Differential Comment Sodium (136-145) meq/L Potassium (3.5-5.1) meq/L Chloride (98-107) meq/L Carbon Dioxide (21.0-32.0) meq/L Anion Gap (5-15) meq/L BUN (7-18) mg/dL Creatinine (0.50-1.00) mg/dL Estimated GFR (>89) mL/min Random Glucose (74-106) mg/dL Hemoglobin A1c 5.3 (4.3-6.0) % Calcium (8.5-10.1) mg/dL Magnesium 2.3 (1.5-2.5) mg/dL Total Bilirubin (0.2-1.0) mg/dL AST (15-37) U/L ALT (10-53) U/L Alkaline Phosphatase (45-117) U/L Total Protein (6.4-8.2) g/dL Albumin (3.4-5.0) g/dL Triglycerides (42-150) mg/dL Cholesterol (120-200) mg/dL LDL Cholesterol, Calc (0-99) mg/dL HDL Cholesterol (40.0-60.0) mg/dL Cholesterol/HDL Ratio Ratio TSH (0.358-3.740) uIU/mL Urine Color (Yellw/Straw) Urine Clarity (Clear) Urine pH (5.0-8.5) Ur Specific Mcloud (1.002-1.035) Urine Protein (Neg-Trace) mg/dL Urine Glucose (UA) (Negative) mg/dL Urine Ketones (Negative) mg/dL Urine Occult Blood (Negative) Urine Nitrate (Negative) Urine Bilirubin (Negative) Urine Urobilinogen (Less than 2) mg/dL Ur Leukocyte Esterase (Negative) Ur Squamous Epith Cells (0-5) /hpf Micro UA Comment Ur Microscopic Review Urine Culture Comments Salicylates (2.8-20.0) mg/dL Urine Opiates Screen (Neg) Acetaminophen (10.0-30.0) mcg/mL Ur Barbiturates Screen (Neg) Ur Amphetamines Screen (Neg) U Benzodiazepines Scrn (Neg) Urine Cocaine Screen (Neg) U Cannabinoids Screen (Neg) Serum Alcohol (0-5) mg/dL Discharge Plan Discharge Disposition Patient Disposition: 30 Still Patient Discharge Condition Condition: Stable Physicians Team ED Provider: Zev Llanes ED Midlevel Provider: Malren Bravo Primary Care Provider: Primary Care No Mays Attending Provider: Bryan Haas Other Providers: Kerwin Holman Status ED Status: Left Department Discharge Information Discharge Date/Time: 01/18/18 18:00
[2018-01-18] MEDS: Metoprolol Tartrate 25 MG Tablet PO SCH ×2 (13:55→17:46)
[2018-01-18] MEDS ORDERED: Ibuprofen 600 MG Tablet PO ONE (14:18)
[2018-01-18 14:29] LABS: Baso % (Auto) 0.8 % (0.0-2.0); Eos # (Auto) 0.3 th/mm3 (0.0-0.4); Eos % (Auto) 6.1 % (0.0-4.0); Hematocrit 37.2 % (35.0-46.0); Hemoglobin 12.3 gm/dL (11.6-15.3); Lymph # (Auto) 1.1 th/mm3 (1.0-4.8); Lymph % (Auto) 21.9 % (9.0-44.0); Mean Corpuscular Hemoglobin 29.8 pg (27.0-34.0); Mean Corpuscular Volume 90.2 fL (80.0-100.0); Mean Platelet Volume 7.5 fL (7.0-11.0); Mono # (Auto) 0.5 th/mm3 (0.0-0.9); Mono % (Auto) 9.8 % (0.0-8.0); Neut # (Auto) 3.1 th/mm3 (1.8-7.7); Neut % (Auto) 61.4 % (16.0-70.0); Platelet Count 176 th/mm3 (150-450); Red Blood Count 4.13 mil/mm3 (4.00-5.30); Red Cell Distribution Width 14.7 % (11.6-17.2)
[2018-01-18 14:45] LABS: Amphetamine Screen,Urine Neg (Neg); Barbiturate Screen,Urine Neg (Neg); Cannabinoid Screen,Urine Neg (Neg); Cocaine Screen,Urine Neg (Neg)
[2018-01-18 14:46] LABS: Bilirubin,Urine Negative (Negative); Clarity,Urine Clear (Clear); Color,Urine Yellow (Yellw/Straw); Glucose,Urine (UA) Negative (Negative); Leukocyte Esterase,Urine Negative (Negative); Nitrite,Urine Negative (Negative); Opiate Screen,Urine Pos (Neg); Specific Gravity,Urine 1.012 (1.002-1.035); Squamous Epithelial Cell,Urine <1 /hpf (0-5)
[2018-01-18 14:54] LABS: Alanine Aminotransferase 34 U/L (10-53); Albumin 3.5 g/dL (3.4-5.0); Anion Gap 7 meq/L (5-15); Aspartate Aminotransferase 39 U/L (15-37); Blood Urea Nitrogen 25 mg/dL (7-18); Calcium 8.5 mg/dL (8.5-10.1); Carbon Dioxide 28.1 meq/L (21.0-32.0); Chloride 109 meq/L (98-107); Glomerular Filtration Rate 49 mL/min (>89); Glucose,Random 87 mg/dL (74-106); Potassium 3.8 meq/L (3.5-5.1); Sodium 144 meq/L (136-145)
[2018-01-18 14:58] LABS: Alkaline Phosphatase 127 U/L (45-117); Total Protein 7.4 g/dL (6.4-8.2)
[2018-01-18] MEDS ORDERED: Aluminum/Magnesium/Simethacone Susp 30 ML UDC PO PRN (17:22)
[2018-01-18] MEDS ORDERED: LORazepam 1 MG Tablet PO PRN (17:22)
[2018-01-18] MEDS ORDERED: PRAMIPEXOLE 0.5 MG PO SCH (18:00)
--- NOTE | 2018-01-18 18:27 | ED ---
HPI - Psych - General Source: patient Mode of arrival: ambulatory Limitations: no limitations - History of Present Illness complaint: suicidal ideation Onset (ago): year(s) Duration: intermittent History of same: Yes Relieving factors: medication Exacerbating factors: other (Pain) Context: significant life stressor, other (Chronic pain) - General Chief Complaint: Psychiatric Symptoms Stated Complaint: Psych eval / POPD Time Seen by Provider: 01/18/18 16:02 - History of Present Illness HPI Narrative: This is a 67-year-old female who presents to this facility under a Montejo act for reportedly stating that she Is "in a lot of pain and does not want to live anymore". She is previously known to this facility. Reviewed electronic medical records, labs, discuss case with staff. Patient toxicology is positive for opiates which she is prescribed. She was assessed in her room J106. She was found awake, alert, and oriented 4. Her speech is clear, logical, organized, of normal harvey and volume. She does report intermittent suicidal ideation however, she claims that she would not act upon it. She denies being homicidal or experiencing auditory or visual hallucinations. When asked about suicide she states "I do not want to but I want out of the pain". When asked about a plan she initially states no but to our discussion she reveals that she is thought about cutting her wrists. Her mood and her affect are congruently sad. She reports multiple external stressors as well as her chronic pain due to "lupus and fibromyalgia". She reports that she sees Dr. Mancilla for pain management and Dr. Bar for psychiatry. She reports a history of depression and states that she received ECT 2 times in the 1970s. She currently takes Effexor and bupropion. She reports that her mother had a severe history of ACD and clinical depression. She completed the 10th grade. She lives with her 38 years and they have 1 son. She reports that she had to quit working because the fibromyalgia. She denies smoking cigarettes states that she drinks alcohol rarely, and denies using drugs. She mentions during the interview that her son and has the king and recently had a relapse. There is also some kind of tension between her and her [id number]. (Maci Hackett) - Related Data Home Medications Medication Instructions Recorded Confirmed bupropion HCl 150 mg PO BID 11/29/17 01/18/18 docusate sodium 100 mg PO DAILY 11/29/17 01/18/18 hydrocodone-acetaminophen 1 tab PO Q6H PRN 11/29/17 01/18/18 potassium chloride 10 meq PO BID 11/29/17 01/18/18 pramipexole 0.5 mg PO TID 11/29/17 01/18/18 ibuprofen 800 mg PO BID PRN 01/18/18 01/18/18 metoprolol tartrate 25 mg PO TID 01/18/18 01/18/18 pramipexole 1.5 mg PO HS 01/18/18 01/18/18 tizanidine 4 mg PO BID 01/18/18 01/18/18 venlafaxine 150 mg PO BID 01/18/18 01/18/18 Allergies Allergy/AdvReac Type Severity Reaction Status Date / Time cephalexin Allergy Severe ANAPHYLAXIS Verified 01/18/18 13:14 cat dander Allergy Intermediate rhinitis Verified 01/18/18 13:14 grass pollen Allergy Intermediate "Pollen Verified 01/18/18 13:14 Allergy" per patient report house dust Allergy Intermediate environmental Verified 01/18/18 13:14 allergy mold Allergy Intermediate environment Verified 01/18/18 13:14 al pregabalin Allergy Intermediate rash Verified 01/18/18 13:14 penicillin G Allergy Mild itching Verified 01/18/18 13:14 Sulfa (Sulfonamide Allergy Mild oral sores Verified 01/18/18 13:14 Antibiotics) gabapentin AdvReac Mild falls Verified 01/18/18 13:14 Review of Systems All other systems reviewed negative except as stated in HPI PMFSH - History History Provided By: Patient - Medical History Medical History: Medical History (Last Reviewed 01/18/18 @ 18:32 by HORTENSIA Khalil) Plantar fasciitis, bilateral C1 cervical fracture Depression Elbow fracture, left FH: total knee replacement Fibromyalgia Glaucoma High blood pressure Lupus Migraine Osteoporosis Restless leg syndrome Rheumatoid arthritis Sleep disorder - Tobacco History Second Hand Smoke Exposure: No Smoking Status: Never smoker - Alcohol History How Often Do You Have a Drink Containing Alcohol: Monthly or less - Substance Use History Substance History: No History of Abuse - Travel History Recent Travel in the [place] Within the Last 8 Weeks: No Recent Travel Out of the Country Within the Last 8 Weeks: No - Immunization History Tetanus Immunization: Unsure Psychiatric History - Psychiatric History Psychiatric Treatment History: History of Psychiatric Treatment, History of Electroconvulsive Therapy History of Inpatient Treatment: Yes - Psychiatric History Reports a history of depression with inpatient admissions as well as established outpatient treatment. (Maci Hackett) - Family Psychiatric History Mother has multiple mental health diagnoses. (Maci Hackett) Physical Exam - General Limitations: no limitations General appearance: alert - Head Head exam: atraumatic - Neurological Exam Neurological exam: Present: alert, oriented X3 - Psychiatric Psychiatric exam: Present: depressed Mental Status Examination Appearance: Appropriate Consciousness: Alert Orientation: x4 Motor Activity: Other (Sitting on the bed) Speech: Unremarkable Language: Adequate Fund of Knowledge: Adequate Attention and Concentration: Adequate Memory: Unremarkable Mood: Sad Affect: Sad Thought Process & Associations: Intact, Goal directed Thought Content: Appropriate Hallucination Type: None Delusion Type: None Suicidal Ideation: Yes Suicidal Plan: Yes Suicidal Intention: No Homicidal Ideation: No Homicidal Plan: No Homicidal Intention: No Insight: Fair Judgment: Impulsive Initial Documented Vital Signs Temperature 98.6 F 01/18/18 13:08 Pulse Rate 88 01/18/18 13:08 Respiratory Rate 18 01/18/18 13:08 Blood Pressure 207/93 H 01/18/18 13:08 Pulse Oximetry 100 01/18/18 13:08 Last Documented Vital Signs Temperature 98.6 F 01/18/18 13:08 Pulse Rate 80 01/18/18 15:14 Respiratory Rate 18 01/18/18 15:14 Blood Pressure 209/100 H 01/18/18 17:12 Pulse Oximetry 98 01/18/18 15:14 MDM - Psych - Diagnosis (1) Major depressive disorder Status: Acute - Differential Diagnosis Likely: suicidal ideation, depression - Lab Data Result diagrams: 01/18/18 14:02 01/18/18 14:02 - [facility] Narrative Medical decision making narrative: Given this patient's extensive history, her chronic pain, and her endorsement of suicidal ideation, I am admitting her to a locked inpatient psychiatric unit for further evaluation and treatment as deemed necessary. She is admitted under the Montejo act however, I feel she does have the capacity to consent for medications. I have obtained signed consent for her current psychotropic medications as well as as needed's. (Maci Hackett) - Lab Data Lab Results 01/18/18 01/18/18 01/18/18 Range/Units 14:02 14:02 14:02 WBC 5.0 (4.0-11.0) th/mm3 RBC 4.13 (4.00-5.30) mil/mm3 Hgb 12.3 (11.6-15.3) gm/dL Hct 37.2 (35.0-46.0) % MCV 90.2 (80.0-100.0) fL MCH 29.8 (27.0-34.0) pg MCHC 33.0 (32.0-36.0) % RDW 14.7 (11.6-17.2) % Plt Count 176 (150-450) th/mm3 MPV 7.5 (7.0-11.0) fL Neut % (Auto) 61.4 (16.0-70.0) % Lymph % (Auto) 21.9 (9.0-44.0) % Pope % (Auto) 9.8 H (0.0-8.0) % Eos % (Auto) 6.1 H (0.0-4.0) % Baso % (Auto) 0.8 (0.0-2.0) % Neut # (Auto) 3.1 (1.8-7.7) th/mm3 Lymph # (Auto) 1.1 (1.0-4.8) th/mm3 Pope # (Auto) 0.5 (0.0-0.9) th/mm3 Eos # (Auto) 0.3 (0.0-0.4) th/mm3 Baso # (Auto) 0.0 (0.0-0.2) th/mm3 WBC Differential . Differential Comment Auto diff final Sodium 144 (136-145) meq/L Potassium 3.8 (3.5-5.1) meq/L Chloride 109 H (98-107) meq/L Carbon Dioxide 28.1 (21.0-32.0) meq/L Anion Gap 7 (5-15) meq/L BUN 25 H (7-18) mg/dL Creatinine 1.11 H (0.50-1.00) mg/dL Estimated GFR 49 L (>89) mL/min Random Glucose 87 (74-106) mg/dL Calcium 8.5 (8.5-10.1) mg/dL Total Bilirubin 0.3 (0.2-1.0) mg/dL AST 39 H (15-37) U/L ALT 34 (10-53) U/L Alkaline Phosphatase 127 H (45-117) U/L Total Protein 7.4 (6.4-8.2) g/dL Albumin 3.5 (3.4-5.0) g/dL TSH 2.660 (0.358-3.740) uIU/mL Urine Color (Yellw/Straw) Urine Clarity (Clear) Urine pH (5.0-8.5) Ur Specific [place] (1.002-1.035) Urine Protein (Neg-Trace) mg/dL Urine Glucose (UA) (Negative) mg/dL Urine Ketones (Negative) mg/dL Urine Occult Blood (Negative) Urine Nitrate (Negative) Urine Bilirubin (Negative) Urine Urobilinogen (Less than 2) mg/dL Ur Leukocyte Esterase (Negative) Ur Squamous Epith Cells (0-5) /hpf Micro UA Comment Ur Microscopic Review Urine Culture Comments Salicylates Less than 1.7 L (2.8-20.0) mg/dL Urine Opiates Screen (Neg) Acetaminophen Less than 2.0 L (10.0-30.0) mcg/mL Ur Barbiturates Screen (Neg) Ur Amphetamines Screen (Neg) U Benzodiazepines Scrn (Neg) Urine Cocaine Screen (Neg) U Cannabinoids Screen (Neg) Serum Alcohol Less than 3 (0-5) mg/dL 01/18/18 01/18/18 Range/Units 14:02 14:02 WBC (4.0-11.0) th/mm3 RBC (4.00-5.30) mil/mm3 Hgb (11.6-15.3) gm/dL Hct (35.0-46.0) % MCV (80.0-100.0) fL MCH (27.0-34.0) pg MCHC (32.0-36.0) % RDW (11.6-17.2) % Plt Count (150-450) th/mm3 MPV (7.0-11.0) fL Neut % (Auto) (16.0-70.0) % Lymph % (Auto) (9.0-44.0) % Pope % (Auto) (0.0-8.0) % Eos % (Auto) (0.0-4.0) % Baso % (Auto) (0.0-2.0) % Neut # (Auto) (1.8-7.7) th/mm3 Lymph # (Auto) (1.0-4.8) th/mm3 Pope # (Auto) (0.0-0.9) th/mm3 Eos # (Auto) (0.0-0.4) th/mm3 Baso # (Auto) (0.0-0.2) th/mm3 WBC Differential Differential Comment Sodium (136-145) meq/L Potassium (3.5-5.1) meq/L Chloride (98-107) meq/L Carbon Dioxide (21.0-32.0) meq/L Anion Gap (5-15) meq/L BUN (7-18) mg/dL Creatinine (0.50-1.00) mg/dL Estimated GFR (>89) mL/min Random Glucose (74-106) mg/dL Calcium (8.5-10.1) mg/dL Total Bilirubin (0.2-1.0) mg/dL AST (15-37) U/L ALT (10-53) U/L Alkaline Phosphatase (45-117) U/L Total Protein (6.4-8.2) g/dL Albumin (3.4-5.0) g/dL TSH (0.358-3.740) uIU/mL Urine Color Yellow (Yellw/Straw) Urine Clarity Clear (Clear) Urine pH 5.0 (5.0-8.5) Ur Specific [place] 1.012 (1.002-1.035) Urine Protein 30 H (Neg-Trace) mg/dL Urine Glucose (UA) Negative (Negative) mg/dL Urine Ketones Negative (Negative) mg/dL Urine Occult Blood Small H (Negative) Urine Nitrate Negative (Negative) Urine Bilirubin Negative (Negative) Urine Urobilinogen Less than 2 (Less than 2) mg/dL Ur Leukocyte Esterase Negative (Negative) Ur Squamous Epith Cells <1 (0-5) /hpf Micro UA Comment Culture not ind Ur Microscopic Review Not Reportable Urine Culture Comments Culture not ind Salicylates (2.8-20.0) mg/dL Urine Opiates Screen Pos H (Neg) Acetaminophen (10.0-30.0) mcg/mL Ur Barbiturates Screen Neg (Neg) Ur Amphetamines Screen Neg (Neg) U Benzodiazepines Scrn Neg (Neg) Urine Cocaine Screen Neg (Neg) U Cannabinoids Screen Neg (Neg) Serum Alcohol (0-5) mg/dL
[2018-01-18] MEDS ORDERED: Non-Formulary Drug (Venlafaxine [Venlafaxine] 150 MG) PO SCH (21:00)
[2018-01-18] MEDS ORDERED: buPROPion 150 MG 12 HR Tablet PO SCH (21:00)
[2018-01-18] MEDS ORDERED: PRAMIPEXOLE 1.5 MG PO SCH (21:00)
[2018-01-18] MEDS ORDERED: TIZANIDINE 4 MG PO SCH (21:00)
[2018-01-18] MEDS: VENLAFAXINE 75 MG PO SCH (23:40)
[2018-01-18] MEDS: Senna/Docusate Sodium 8.6/50 MG Tablet PO SCH (23:41)
[2018-01-19 09:50] LABS: Calcium 8.8 mg/dL (8.5-10.1); Carbon Dioxide 29.4 meq/L (21.0-32.0); Potassium 3.4 meq/L (3.5-5.1)
[2018-01-19 09:54] LABS: Chol/HDL Ratio 3.16 Ratio; HDL Cholesterol 58.2 mg/dL (40.0-60.0)
[2018-01-19] MEDS: Senna/Docusate Sodium 8.6/50 MG Tablet PO SCH ×2 (09:54→21:03)
[2018-01-19] MEDS: Metoprolol Tartrate 25 MG Tablet PO SCH ×3 (09:55→18:16)
[2018-01-19] MEDS: VENLAFAXINE 75 MG PO SCH (09:55)
[2018-01-19] MEDS: buPROPion 150 MG 12 HR Tablet PO SCH (10:00)
[2018-01-19] MEDS ORDERED: Aluminum/Magnesium/Simethacone Susp 30 ML UDC PO PRN (12:11)
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
[2018-01-19 13:41] LABS: Hemoglobin A1c 5.3 % (4.3-6.0)
[2018-01-19] MEDS ORDERED: hydrALAZINE 25 MG Tablet PO ONE (16:44)
[2018-01-19] MEDS ORDERED: Lisinopril 5 MG Tablet PO ONE (16:45)
[2018-01-19] MEDS ORDERED: amLODIPine 5 MG Tablet PO ONE (17:18)
--- NOTE | 2018-01-19 17:39 | P.CON ---
History of Present Illness Service: Hospitalist Consult date: 01/19/18 Requesting Physician: Bryan Haas Reason for Consult: Medical management Primary Care Provider: No Primary Care Physician History of Present Illness: This is a 67yo female with a PMHX significant for depression, fibromyalgia, hx of C1 and C2 fracture, HTN, chronic renal insufficiency, RA, lupus, chronic pain and migraines who presented to the ED under [place] for suicidal ideation. She has since been admitted to inpatient psychiatry and hospitalist services have been consulted for medical management. Patient has had elevated blood pressures today as high as 223/88. Patient seen and examined. Patient states her blood pressure normally is well controlled. She denies any recent change in her medication and states she has been complaint. She reports some "tightness" across the front of her head but denies any headache. She denies any vision changes, numbness, tingling, weakness, palpitations or chest pain. She denies any shortness of breath. She denies any nausea, vomiting or abdominal pain. She denies any hematuria or dysuria. She reports normal bowel movement this am. She is and lives with her who has dementia. Review of Systems All other systems reviewed negative except as stated in HPI PMFSH - History History Provided By: Patient, Medical Record - Medical History Medical History: Medical History (Last Reviewed 01/19/18 @ 07:48 by Kael Knox) Plantar fasciitis, bilateral C1 cervical fracture Depression Elbow fracture, left FH: total knee replacement Fibromyalgia Glaucoma High blood pressure Lupus Migraine Osteoporosis Restless leg syndrome Rheumatoid arthritis Sleep disorder - Surgical History Surgical History: Surgical History (Last Updated 01/19/18 @ 17:27 by Charito Nava) History of total right knee replacement - Family History Family History: Family History (Last Updated 01/19/18 @ 17:21 by Charito Nava) Other Family history of brain aneurysm - Tobacco History Second Hand Smoke Exposure: No Smoking Status: Never smoker - Alcohol History How Often Do You Have a Drink Containing Alcohol: Monthly or less - Substance Use History Substance History: No History of Abuse - Travel History Recent Travel in the [place] Within the Last 8 Weeks: No Recent Travel Out of the Country Within the Last 8 Weeks: No - Immunization History Tetanus Immunization: Unsure Hx Influenza Vaccine This Season: Yes Medications and Allergies Active Medications: Active Medications Hydrocodone Bitart/Acetaminophen ([place] 10/325) 1 tab PO Q6H PRN PRN Reason: Pain Last Admin: 01/19/18 06:15 Dose: 1 tab Al Hydrox/Mg Hydrox/Simethicone (Mag-Al Plus Susp Liq) 30 ml PO Q6H PRN PRN Reason: DYSPEPSIA Al Hydroxide/Mg Hydroxide (Milk Of Magnesia Liq) 30 ml PO Q12H PRN PRN Reason: Mild Constipation Amitriptyline HCl (Elavil) 25 mg PO HS [facility] Amlodipine Besylate (Norvasc) 5 mg PO ONCE ONE Stop: 01/19/18 16:51 Amlodipine Besylate (Norvasc) 5 mg PO DAILY [facility] Bupropion HCl (Wellbutrin Sr) 150 mg PO DAILY [facility] Last Admin: 01/19/18 10:00 Dose: 150 mg Clonidine HCl (Catapres) 0.1 mg PO Q6H PRN PRN Reason: SBP>180, DBP>95 Diphenhydramine HCl (Benadryl) 50 mg PO HS PRN PRN Reason: INSOMNIA Hydroxyzine HCl (Atarax) 50 mg PO Q6H PRN PRN Reason: ANXIETY Metoprolol Tartrate (Lopressor) 25 mg PO TID [facility] Last Admin: 01/19/18 13:29 Dose: Not Given Miscellaneous (Pill Splitter) 1 each OTHER UNSCH PRN PRN Reason: PILL SPLITTER Potassium Chloride (Klor-Con 10) 10 meq PO BID [facility] Last Admin: 01/19/18 09:55 Dose: 10 meq Pramipexole Dihydrochloride (Mirapex) 0.5 mg PO TID [facility] Last Admin: 01/19/18 12:15 Dose: 0.5 mg Pramipexole Dihydrochloride (Mirapex) 1.5 mg PO HS [facility] Last Admin: 01/18/18 23:40 Dose: 1.5 mg Senna/Docusate Sodium (Bertha-Colace) 1 tab PO BID [facility] Last Admin: 01/19/18 09:54 Dose: 1 tab Tizanidine HCl (Zanaflex) 4 mg PO BID [facility] Last Admin: 01/19/18 09:55 Dose: 4 mg Allergies Allergy/AdvReac Type Severity Reaction Status Date / Time cephalexin Allergy Severe ANAPHYLAXIS Verified 01/18/18 13:14 cat dander Allergy Intermediate rhinitis Verified 01/18/18 13:14 grass pollen Allergy Intermediate "Pollen Verified 01/18/18 13:14 Allergy" per patient report house dust Allergy Intermediate environmental Verified 01/18/18 13:14 allergy mold Allergy Intermediate environment Verified 01/18/18 13:14 al pregabalin Allergy Intermediate rash Verified 01/18/18 13:14 penicillin G Allergy Mild itching Verified 01/18/18 13:14 Sulfa (Sulfonamide Allergy Mild oral sores Verified 01/18/18 13:14 Antibiotics) gabapentin AdvReac Mild falls Verified 01/18/18 13:14 Home Medications Medication Instructions Recorded Confirmed Type bupropion HCl 150 mg PO BID 11/29/17 01/18/18 History docusate sodium 100 mg PO DAILY 11/29/17 01/18/18 History hydrocodone-acetaminophen 1 tab PO Q6H PRN 11/29/17 01/18/18 History potassium chloride 10 meq PO BID 11/29/17 01/18/18 History pramipexole 0.5 mg PO TID 11/29/17 01/18/18 History ibuprofen 800 mg PO BID PRN 01/18/18 01/18/18 History metoprolol tartrate 25 mg PO TID 01/18/18 01/18/18 History pramipexole 1.5 mg PO HS 01/18/18 01/18/18 History tizanidine 4 mg PO BID 01/18/18 01/18/18 History venlafaxine 150 mg PO BID 01/18/18 01/18/18 History Physical Exam Vital signs: Vital Signs 01/18/18 18:15 01/18/18 19:30 01/19/18 06:38 Temperature 98.1 F 98.2 F Pulse Rate 70 74 Respiratory Rate 17 Blood Pressure 210/91 H 164/80 H 200/93 H Pulse Oximetry 97 96 01/19/18 06:44 01/19/18 06:48 01/19/18 08:00 Temperature Pulse Rate Respiratory Rate 17 Blood Pressure 152/91 H 152/91 H Pulse Oximetry 01/19/18 09:43 01/19/18 11:15 01/19/18 13:28 Temperature 98.2 F Pulse Rate 63 69 55 L Respiratory Rate 16 16 16 Blood Pressure 212/93 H 223/88 H 135/63 Pulse Oximetry 96 95 01/19/18 16:27 Temperature 97.9 F Pulse Rate 70 Respiratory Rate 22 Blood Pressure 195/82 H Pulse Oximetry 98 Intake & Output 01/18/18 01/19/18 01/19/18 18:59 06:59 18:59 Weight 81.647 kg Other: Weight On Admission 81.647 kg Narrative: GENERAL: WDWN female, INAD. Awake and alert. Appears comfortable sitting in dayroom eating dinner. SKIN: Warm and dry. +chronic venous stasis changes noted BLEs. HEAD: Atraumatic. Normocephalic. EYES: Pupils equal and round. No scleral icterus. No injection or drainage. ENT: No nasal bleeding or discharge. Mucous membranes pink and moist. NECK: Trachea midline. CARDIOVASCULAR: Regular rate and rhythm. RESPIRATORY: No accessory muscle use. Clear to auscultation. Breath sounds equal bilaterally. GASTROINTESTINAL: Abdomen soft, non-tender, nondistended. Hepatic and splenic margins not palpable. MUSCULOSKELETAL: Extremities without clubbing or cyanosis. Left elbow deformity. +Mild pitting edema BLEs. NEUROLOGICAL: Awake and alert. No obvious cranial nerve deficits. 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 Normal speech. PSYCHIATRIC: Appropriate mood and affect. Calm and cooperative. Assessment and Plan - Plan 67yo female with a PMHX significant for depression, fibromyalgia, hx of C1 and C2 fracture, HTN, chronic renal insufficiency, RA, lupus, chronic pain and migraines who presented to the ED under [place] for suicidal ideation. She has since been admitted to inpatient psychiatry and hospitalist services have been consulted for medical management. Depression Suicidal ideation -Management per psychiatric team Hypertensive urgency BP 223/88, now 195/82 -continue on home dose of Metoprolol with parameters -start Norvasc 5mg daily -Clonidine 0.1mg prn with parameters -monitor BP and adjust treatment accordingly CRI Cr appears to be near baseline -avoid nephrotoxic agents -monitor kidney function as indicated Hypokalemia, chronic -patient resumed on her home dose of potassium 10meq BID -give one time dose of K 20meq -Monitor K and replete as indicated Deconditioned Weakness -fall precautions -PT/OT eval/tx -check B12 and Vit D level Other stable chronic conditions include fibromyalgia, RA, lupus, migraines and chronic pain, continue on home medications DVT prophylaxis -patient is ambulatory Thank you very kindly for this consultation. We will continue to follow along with you. Code Status: FULL Discussed Condition With: patient, nursing staff, Dr. Holman
[2018-01-19 18:41] LABS: Magnesium 2.3 mg/dL (1.5-2.5)
[2018-01-20] MEDS ORDERED: amLODIPine 5 MG Tablet PO SCH (09:00)
[2018-01-20] MEDS ORDERED: Lisinopril 5 MG Tablet PO SCH (09:00)
[2018-01-20] MEDS ORDERED: amLODIPine 10 MG Tablet PO SCH (09:00)
[2018-01-20] MEDS: buPROPion 150 MG 12 HR Tablet PO SCH (10:07)
[2018-01-20] MEDS: Metoprolol Tartrate 25 MG Tablet PO SCH ×4 (10:08→20:45)
[2018-01-20] MEDS: Senna/Docusate Sodium 8.6/50 MG Tablet PO SCH ×2 (10:12→20:46)
[2018-01-20] MEDS: Lisinopril 5 MG Tablet PO SCH (10:46)
[2018-01-20] MEDS ORDERED: Furosemide 40 MG Tablet PO ONE (12:00)
[2018-01-20] MEDS: hydrALAZINE 25 MG Tablet PO SCH ×2 (12:15→20:45)
--- NOTE | 2018-01-20 13:37 | P.PN ---
Subjective Interval history: Follow-up visit uncontrolled hypertension, chronic pain, RA. Patient seen and examined today. Reports severe pain. Bilateral lower extremity edema. Patient states that she has chronic kidney disease and follows with Dr. Piña and outpatient. States that she is on Lasix 80 mg if she has swelling of the feet as per recommendation of Dr. Piña she uses it as needed only. Patient states that she is not on any RA medications because of her lupus. Previously following Dr. Barillas and outpatient but now she is switching to Dr. Kellogg which she has an appointment supposedly on January 24 but she has canceled it because she was in the hospital. Patient states she reports she takes clonidine every day once a day as prescribed by her PCP. Not listed on her medications currently. Discussed adjustments of medication. Patient reports she is on chronic pain management and also has been taking muscle relaxants. Denies SOB/ dyspnea. Denies chest pain, palpitations, headaches, dizziness. Denies fevers, chills, n/v/d. Denies hematuria, dysuria. Physical Exam Vital signs: Vital Signs 01/19/18 16:27 01/19/18 18:10 01/20/18 05:59 Temperature 97.9 F 98.4 F Pulse Rate 70 57 L 60 Respiratory Rate 22 17 Blood Pressure 195/82 H 206/87 H 197/85 H Pulse Oximetry 98 96 01/20/18 09:57 01/20/18 10:46 Temperature Pulse Rate 63 69 Respiratory Rate 24 22 Blood Pressure 220/92 H 181/85 H Pulse Oximetry 95 97 Intake & Output 01/19/18 01/20/18 01/20/18 18:59 06:59 18:59 Intake Total 120 / 120 Balance 120 / 120 Intake: Oral 120 / 120 Other: # Voids 2 Date of Last Bowel Movement 01/17/18 01/17/18 Narrative: GENERAL: This is a well-nourished, well-developed patient, in no apparent distress. SKIN: Warm and dry. HEENT: Normocephalic. Pupils equal round and reactive. Nose without bleeding. Airway patent. NECK: Trachea midline. Supple. CARDIOVASCULAR: Regular rate and rhythm without murmurs, gallops, or rubs. RESPIRATORY: Diminished bases. No wheezes, rales, or rhonchi. GASTROINTESTINAL: Abdomen soft, non-tender, nondistended. Bowel Sounds normoactive x4. MUSCULOSKELETAL: Extremities without clubbing, cyanosis. BLE edema +2, Left knee edema +1, Joint swelling bilateral digits. NEUROLOGICAL: Awake and alert. Oriented to place, person. No focal neuro deficit. Moves all extremities. Normal speech. Results - Labs CBC & Chem 7: 01/18/18 14:02 01/19/18 08:53 Laboratory Results - last 24 hr 01/19/18 01/19/18 08:53 08:53 Hemoglobin A1c 5.3 Magnesium 2.3 Vitamin B12 456 Assessment and Plan - Plan 67yo female with a PMHX significant for depression, fibromyalgia, hx of C1 and C2 fracture, HTN, chronic renal insufficiency, RA, lupus, chronic pain and migraines who presented to the ED under [place] for suicidal ideation. She has since been admitted to inpatient psychiatry and hospitalist services have been consulted for medical management. Depression Suicidal ideation -Management per psychiatric team Hypertension, uncontrolled (accelerated/urgency) -Metoprolol 25mg TID, with parameters -DC Norvasc 5mg daily, patient has BLE edema, may increase incidence -Start hydralazine 25 mg 3 times daily, start lisinopril, patient positive proteinuria also with known CKD -Clonidine 0.1mg prn, patient states she takes clonidine daily, we will get med rec. -Lasix 40mg daily -monitor BP and adjust treatment accordingly BLE edema -Lasix daily x 3 days -Monitor BMP Acute Kidney Injury on CKD Stage 3 -Baseline creatinine 0.9-1.05 -avoid nephrotoxic agents -monitor kidney function -Patient follows Dr. Piña and outpatient. Also states that taking NSAIDs at home. Discussed with patient hold off on NSAID for now. Hypokalemia, chronic -patient resumed on her home dose of potassium 10meq BID -Monitor K and replete as indicated -Lasix given Deconditioned Weakness -fall precautions -PT/OT eval/tx -check B12 and Vit D level Chronic pain Fibromyalgia RA Lupus -Patient states she follows with Dr. Mcnair. Is not on any DMARD's Biologics. Patient state that because of her lupus she is unable to take RA medications -Continue [place] use. [facility] [facility] Prescription Drug Monitoring Database has been queried and verified prior to prescribing the controlled substance. -Continue tizanidine -We will add prednisone low dose daily 5 days. Will add as needed baclofen for now. -Pain is probably contributing to increased blood pressure DVT prophylaxis ambulatory Code Status: Full code Discussed Condition With: Patient, nursing Discharge Planning: DC disposition by primary team
--- NOTE | 2018-01-20 14:07 | P.PNPSY ---
Subjective Remarks: Patient was seen and case discussed with nursing. Patient continues to complain of overall generalized pain secondary to fibromyalgia and lupus. She is seen by the medical team on a daily basis and is having labile hypertension. Patient had chest pain this morning which has since resolved and she was subsequently seen by the medical team. Mental Status Examination Appearance: Appropriate Consciousness: Alert Orientation: x4 Motor Activity: Other (Sitting on the bed patient used a walker walking slowly to get to a chair) Speech: Unremarkable Language: Adequate Fund of Knowledge: Adequate Attention and Concentration: Adequate Memory: Unremarkable Mood: Sad Affect: Anxious Thought Process & Associations: Intact, Goal directed Thought Content: Appropriate Hallucination Type: None Delusion Type: None Suicidal Plan: No Suicidal Intention: No Homicidal Ideation: No Homicidal Plan: No Homicidal Intention: No Insight: Fair Judgment: Adequate (Fair) Assessment and Plan - Assessment (1) Major depressive disorder, recurrent severe without psychotic features Code(s): F33.2 - Major depressive disorder, recurrent severe without psychotic features Status: Acute - Plan Plan: I spoke with nurse education supervisor and recommended a transfer to the psychiatry/ medical unit given labile hypertension. She continues to be monitored by the medical team Justification for Continued Inpatient Stay: Patient would decompensate in a less restrictive setting Request Healthcare Surrogate/Guardian Advocate?: No
[2018-01-21] MEDS: predniSONE 10 MG Tablet PO SCH ×2 (07:41→10:07)
[2018-01-21] MEDS: hydrALAZINE 50 MG Tablet PO SCH ×3 (10:04→17:17)
[2018-01-21] MEDS: Lisinopril 5 MG Tablet PO SCH (10:04)
[2018-01-21] MEDS: Metoprolol Tartrate 50 MG Tablet PO SCH ×2 (10:05→20:25)
[2018-01-21] MEDS: buPROPion 150 MG 12 HR Tablet PO SCH (10:05)
[2018-01-21] MEDS: Senna/Docusate Sodium 8.6/50 MG Tablet PO SCH ×2 (10:05→20:25)
[2018-01-21] MEDS: Furosemide 40 MG Tablet PO SCH (10:07)
--- NOTE | 2018-01-21 14:32 | P.PN ---
Subjective Interval history: Follow-up visit uncontrolled hypertension, chronic pain, RA. Patient seen and examined today. Patient reports improving pain, able to move around and ambulate. Reports she is doing okay but could have been better. Joints improved Denies SOB/ dyspnea. Denies chest pain, palpitations, headaches, dizziness. Denies fevers, chills, n/v/d. Denies dysuria. Physical Exam Vital signs: Vital Signs 01/20/18 17:38 01/20/18 20:35 01/20/18 22:22 Temperature 98.2 F Pulse Rate 65 68 Respiratory Rate 20 16 Blood Pressure 175/81 H 166/83 H Pulse Oximetry 97 01/20/18 23:22 01/21/18 00:08 01/21/18 05:45 Temperature 98.3 F Pulse Rate 61 Respiratory Rate 16 16 20 Blood Pressure 185/81 H Pulse Oximetry 97 01/21/18 05:53 01/21/18 06:48 01/21/18 12:17 Temperature Pulse Rate Respiratory Rate 20 18 18 Blood Pressure Pulse Oximetry Intake & Output 01/20/18 01/21/18 01/21/18 18:59 06:59 18:59 Intake Total 600 / 600 Balance 600 / 600 Intake: Oral 600 / 600 Other: # Voids 2 Narrative: GENERAL: This is a well-nourished, well-developed patient, in no apparent distress. SKIN: Warm and dry. HEENT: Normocephalic. Pupils equal round and reactive. Nose without bleeding. Airway patent. NECK: Trachea midline. Supple. CARDIOVASCULAR: Regular rate and rhythm without murmurs, gallops, or rubs. RESPIRATORY: Diminished bases. No wheezes, rales, or rhonchi. GASTROINTESTINAL: Abdomen soft, non-tender, nondistended. Bowel Sounds normoactive x4. MUSCULOSKELETAL: Extremities without clubbing, cyanosis. BLE edema +2, Left knee edema +1, Joint swelling bilateral digits, improved NEUROLOGICAL: Awake and alert. Oriented to place, person. No focal neuro deficit. Moves all extremities. Normal speech. Results - Labs CBC & Chem 7: 01/18/18 14:02 01/19/18 08:53 Assessment and Plan - Plan 67yo female with a PMHX significant for depression, fibromyalgia, hx of C1 and C2 fracture, HTN, chronic renal insufficiency, RA, lupus, chronic pain and migraines who presented to the ED under [place] Act for suicidal ideation. She has since been admitted to inpatient psychiatry and hospitalist services have been consulted for medical management. Depression Suicidal ideation -Management per psychiatric team Hypertension, uncontrolled (accelerated/urgency) -Metoprolol 50mg BID, with parameters -DC Norvasc 5mg daily, patient has BLE edema, may increase incidence -Increase hydralazine 50 mg 3 times daily, start lisinopril, patient positive proteinuria also with known CKD -Lisinopril 5mg daily may be adjusted -Clonidine 0.1mg prn, patient states she takes clonidine daily, we will get med rec. -Lasix 40mg daily -monitor BP and adjust treatment accordingly BLE edema -Lasix daily x 3 days -Monitor BMP Acute Kidney Injury on CKD Stage 3 -Baseline creatinine 0.9-1.05 -avoid nephrotoxic agents -monitor kidney function -Patient follows Dr. Piña and outpatient. Also states that taking NSAIDs at home. Discussed with patient hold off on NSAID for now. Hypokalemia, chronic -patient resumed on her home dose of potassium 10meq BID -Monitor K and replete as indicated -Lasix given Deconditioned Weakness -fall precautions -PT/OT eval/tx -check B12 and Vit D level Chronic pain Fibromyalgia RA Lupus -Patient states she follows with Dr. Mcnair. Is not on any DMARD's Biologics. Patient state that because of her lupus she is unable to take RA medications -Continue [place] use. [facility] Prescription Drug Monitoring Database has been queried and verified prior to prescribing the controlled substance. -Continue tizanidine -We will add prednisone low dose daily 5 days. May adjust tizanidine dose -Pain is probably contributing to increased blood pressure DVT prophylaxis ambulatory Code Status: Full code Discussed Condition With: Patient, nurse Discharge Planning: DC disposition by primary team
--- NOTE | 2018-01-21 14:49 | P.PNPSY ---
Subjective Remarks: Patient was seen and case discussed with nursing. Patient is pleasant and cooperative with exam. Today, blood pressure is under better control. Per nursing, she was crying earlier wanted to go home. She is confused at times telling her family we did not want her to see them when in fact she said she did not. Pain is improved Mental Status Examination Appearance: Appropriate Consciousness: Alert Orientation: x4 Motor Activity: Other (Sitting on the bed patient used a walker walking slowly to get to a chair) Speech: Unremarkable Language: Adequate Fund of Knowledge: Adequate Attention and Concentration: Adequate Memory: Unremarkable Mood: Sad Affect: Anxious Thought Process & Associations: Intact, Goal directed Thought Content: Appropriate Hallucination Type: None Delusion Type: None Suicidal Ideation: Yes (Denies at this time states she would not take the suicide pill) Suicidal Plan: No Suicidal Intention: No Homicidal Ideation: No Homicidal Plan: No Homicidal Intention: No Insight: Fair Judgment: Adequate (Fair) Assessment and Plan - Assessment (1) Major depressive disorder, recurrent severe without psychotic features Code(s): F33.2 - Major depressive disorder, recurrent severe without psychotic features Status: Acute - Plan Plan: I spoke with nurse cosmetics supervisor and recommended a transfer to the psychiatry/ medical unit given labile hypertension. She continues to be monitored by the medical team Justification for Continued Inpatient Stay: Patient would decompensate in a less restrictive setting Request Healthcare Surrogate/Guardian Advocate?: No
[2018-01-22] MEDS ORDERED: hydrALAZINE 50 MG Tablet PO SCH (08:00)
[2018-01-22 08:17] LABS: Calcium 8.9 mg/dL (8.5-10.1); Carbon Dioxide 29.5 meq/L (21.0-32.0)
[2018-01-22 08:18] LABS: Potassium 3.3 meq/L (3.5-5.1)
[2018-01-22] MEDS: Senna/Docusate Sodium 8.6/50 MG Tablet PO SCH ×2 (09:00→21:10)
[2018-01-22] MEDS: predniSONE 10 MG Tablet PO SCH (09:22)
[2018-01-22] MEDS: Metoprolol Tartrate 50 MG Tablet PO SCH ×2 (09:22→21:10)
[2018-01-22] MEDS: Furosemide 40 MG Tablet PO SCH (09:22)
[2018-01-22] MEDS: Lisinopril 5 MG Tablet PO SCH (09:22)
[2018-01-22] MEDS: buPROPion 150 MG 12 HR Tablet PO SCH (10:53)
--- NOTE | 2018-01-22 15:39 | P.PNPSY ---
Subjective Remarks: Patient seen and examined with nurse in coverage for Dr. Haas. Chart reviewed. Case discussed with nursing staff. No behavioral issues noted. On my examination today, the patient complains of somewhat poor sleep overnight. She says that she was awake until 3 in the morning. No particular thoughts or other issues disturbing sleep, just could not get to sleep. Denies any suicidal or homicidal ideation. She insists that presenting suicidal ideation was a metaphor for her distress that her pain. It was, in her words "just a statement." She says that she would never hurt herself because she has too much to live for including her , sons and grandchildren. Denies side effects from medications. Does feel that the Elavil is may be helping somewhat to modulate her chronic pain. No acute physical complaints. Vital Signs Temp Pulse Resp BP Pulse Ox 01/22/18 06:24 98.6 F 62 18 175/89 H 96 01/21/18 23:53 16 01/21/18 21:25 18 01/21/18 20:25 20 01/21/18 20:00 67 20 157/78 H 01/21/18 18:00 97.8 F 70 16 98 01/21/18 17:00 160/75 H 01/21/18 16:00 194/80 H Intake and Output 01/22/18 01/22/18 01/22/18 06:59 14:59 22:59 Intake Total 580 / 580 Balance 580 / 580 Intake: Oral 480 / 480 Oral Supplement 100 / 100 Other: # Voids 1 # Bowel Movements 0 Laboratory Results - last 24 hr 01/22/18 07:11 Sodium 143 Potassium 3.3 L Chloride 103 Carbon Dioxide 29.5 Anion Gap 11 BUN 22 H Creatinine 1.00 Estimated GFR 55 L Random Glucose 95 Calcium 8.9 Labs reviewed. Review of Systems All other systems reviewed negative except as stated in HPI Mental Status Examination Appearance: Appropriate Consciousness: Alert Orientation: x4 Motor Activity: Other (No motor abnormalities noted) Speech: Unremarkable Language: Adequate Fund of Knowledge: Adequate Attention and Concentration: Adequate Memory: Unremarkable Mood: Sad (Improving) Affect: Appropriate Thought Process & Associations: Intact Thought Content: Appropriate Hallucination Type: None Delusion Type: None Suicidal Ideation: No Suicidal Plan: No Suicidal Intention: No Homicidal Ideation: No Homicidal Plan: No Homicidal Intention: No Mental Status Exam Remarks: Insight and judgment are fair. Assessment and Plan - Assessment (1) Major depressive disorder, recurrent severe without psychotic features Code(s): F33.2 - Major depressive disorder, recurrent severe without psychotic features Status: Acute - Plan Plan: Titrate Elavil to 37.5 mg to target residual dysphoria and to help with chronic pain. Continue to monitor on inpatient unit. Hospitalist input appreciated. Continue other medications and care as ordered. Justification for Continued Inpatient Stay: Medication changes. Monitoring for impairment in safety. Risk for decompensation in less restrictive environment. Discharge Planning: Per Dr. Haas Request Healthcare Surrogate/Guardian Advocate?: No
--- NOTE | 2018-01-22 15:42 | P.PN ---
Subjective Interval history: Follow-up on patient with uncontrolled hypertension, chronic pain, RA. Patient seen and examined. Patient complains of left shoulder and left knee pain as a result of a fall that she sustained several weeks ago. She complains of limited range of motion in the left shoulder and is unable to reach up with the left hand. She states that her joint pain is much improved. She states she is ready to be discharged home and is somewhat frustrated that she is still in the hospital. She denies any chest pain or shortness of breath. She denies any nausea, vomiting or abdominal pain. Physical Exam Vital signs: Vital Signs 01/21/18 16:00 01/21/18 17:00 01/21/18 18:00 Temperature 97.8 F Pulse Rate 70 Respiratory Rate 16 Blood Pressure 194/80 H 160/75 H Pulse Oximetry 98 01/21/18 20:00 01/21/18 20:25 01/21/18 21:25 Temperature Pulse Rate 67 Respiratory Rate 20 20 18 Blood Pressure 157/78 H Pulse Oximetry 01/21/18 23:53 01/22/18 06:24 Temperature 98.6 F Pulse Rate 62 Respiratory Rate 16 18 Blood Pressure 175/89 H Pulse Oximetry 96 Intake & Output 01/21/18 01/22/18 01/22/18 18:59 06:59 18:59 Intake Total 580 / 580 Balance 580 / 580 Intake: Oral 480 / 480 Oral Supplement 100 / 100 Other: # Voids 1 # Bowel Movements 0 Narrative: GENERAL: This is a well-nourished, well-developed elderly female patient, in no apparent distress. Awake and alert. SKIN: Warm and dry. No generalized rash. HEENT: Normocephalic. Pupils equal round and reactive. Bilateral sclera anicteric. Nose without bleeding. Airway patent. MMM. NECK: Trachea midline. CARDIOVASCULAR: Regular rate and rhythm without murmurs, gallops, or rubs. RESPIRATORY: Diminished bases. No wheezes, rales, or rhonchi. No accessory muscle use. GASTROINTESTINAL: Abdomen soft, non-tender, nondistended. Bowel Sounds normoactive x4. MUSCULOSKELETAL: Extremities without clubbing, cyanosis. BLE edema +2, Left knee edema +1, +tenderness to palpation left knee laterally. Decreased ROM. Joint swelling bilateral digits, improved. Decreased ROM left shoulder. + tender to palpation. +impingement I&II. NEUROLOGICAL: Awake and alert. Oriented to place, person. No focal neuro deficit. Moves all extremities spontaneously. Normal speech. PSYCHIATRIC: Calm and cooperative. Results - Labs CBC & Chem 7: 01/18/18 14:02 01/22/18 07:11 Laboratory Results - last 24 hr 01/22/18 07:11 Sodium 143 Potassium 3.3 L Chloride 103 Carbon Dioxide 29.5 Anion Gap 11 BUN 22 H Creatinine 1.00 Estimated GFR 55 L Random Glucose 95 Calcium 8.9 Assessment and Plan - Plan 67yo female with a PMHX significant for depression, fibromyalgia, hx of C1 and C2 fracture, HTN, chronic renal insufficiency, RA, lupus, chronic pain and migraines who presented to the ED under [place] Act for suicidal ideation. She has since been admitted to inpatient psychiatry and hospitalist services have been consulted for medical management. Depression Suicidal ideation -Management per psychiatric team Hypertension, uncontrolled -Continue on metoprolol 50 mg twice daily, hydralazine 50mg TID and lisinopril 5 mg daily. -Resume patients home dose of Clonidine 0.1mg BID -Clonidine as needed with parameters -monitor BP and adjust treatment accordingly BLE edema -continue on Lasix x 3 days -monitor BMP MARIA LUISA on CKD stage 3 Cr appears to be near baseline -avoid nephrotoxic agents -monitor kidney function as indicated Hypokalemia, chronic Mag WNL K 3.3 today -patient resumed on her home dose of potassium 10meq BID -give one time dose of K 40meq -Monitor K and replete as indicated Left shoulder and left knee pain s/p fall at home several weeks ago -obtain XR left shoulder and left knee for further evaluation -patient evaluated by PT and no needs identified Chronic pain Fibromyalgia RA Lupus -Patient states she follows with Dr. Mcnair. Is not on any DMARD's Biologics. Patient state that because of her lupus she is unable to take RA medications -Continue [place] use. [employer] Prescription Drug Monitoring Database has been queried and verified prior to prescribing the controlled substance. -Continue tizanidine prn -Continue prednisone low dose daily 5 days. DVT prophylaxis -patient is ambulatory Code Status: FULL Discussed Condition With: patient, nursing staff
--- NOTE | 2018-01-22 16:40 | XR ---
EXAM DATE: 01/22/2018 4:37 PM EDT AGE/SEX: 67 years / Female INDICATIONS: Left knee pain after fall. CLINICAL DATA: This is the patient's initial encounter. Patient reports that signs and symptoms have been present for 1 day and indicates a pain score of 6/10. MEDICAL/SURGICAL HISTORY: . Hypertension. Arthritis. Rheumatoid arthritis. Asthma. COPD. Lupus . Total knee replacement, right. Hemorrhoidectomy. [place] [facility] [place] [facility] (1 OR 2 VW), 07/11/2016. . FINDINGS: Mild degenerative changes are evident. Anatomic alignment. No fracture. No joint effusion CONCLUSION: Mild degenerative changes Electronically signed by: Kerwin Huang MD 01/22/2018 4:38 PM EDT
--- NOTE | 2018-01-22 16:45 | XR ---
EXAM DATE: 01/22/2018 4:41 PM EDT AGE/SEX: 67 years / Female INDICATIONS: Left shoulder pain after fall. CLINICAL DATA: This is the patient's initial encounter. Patient reports that signs and symptoms have been present for 1 day and indicates a pain score of 7/10. MEDICAL/SURGICAL HISTORY: . Hypertension. Arthritis. Rheumatoid arthritis. Asthma. COPD. Lupus . Total knee replacement, right. Hemorrhoidectomy. COMPARISON: [facility] – [place], SHOULDER LEFT COMPLETE (>2VWS), 11/09/2017. . FINDINGS: Degenerative changes are seen about the glenohumeral joint. Alignment anatomic. Fracture is not appre ciated. CONCLUSION: Degenerative changes without definite fracture. Fracture of the humeral head with difficult to exclud e. Electronically signed by: Kerwin Huang MD 01/22/2018 4:44 PM EDT
[2018-01-23] MEDS: hydrALAZINE 50 MG Tablet PO SCH ×2 (02:08→09:57)
[2018-01-23 08:25] LABS: Carbon Dioxide 28.8 meq/L (21.0-32.0); Potassium 3.2 meq/L (3.5-5.1)
[2018-01-23] MEDS: Senna/Docusate Sodium 8.6/50 MG Tablet PO SCH (09:56)
[2018-01-23] MEDS: predniSONE 10 MG Tablet PO SCH (09:56)
[2018-01-23] MEDS: buPROPion 150 MG 12 HR Tablet PO SCH (09:57)
[2018-01-23] MEDS: Metoprolol Tartrate 50 MG Tablet PO SCH (09:57)
[2018-01-23] MEDS: Lisinopril 5 MG Tablet PO SCH (09:57)
[2018-01-23] MEDS: Furosemide 40 MG Tablet PO SCH (09:58)
[2018-01-23] MEDS ORDERED: Potassium Chloride 25 MEQ Effervescent Tablet PO ONE (10:14)
--- NOTE | 2018-01-23 12:07 | P.PN ---
Subjective Interval history: Follow-up on patient with uncontrolled hypertension, chronic pain, RA. Patient seen and examined. Patient states she feels much better today. She reports that she is having less joint pain. She was able to ambulate without the assistance of her walker which she has not done in a long time. She denies any headaches, vision changes, numbness or tingling. She denies any chest pain or shortness of breath. She denies any nausea, vomiting or abdominal pain. Advised patient on x-ray imaging findings. Discussed with nursing staff, no acute issues noted overnight. Physical Exam Vital signs: Vital Signs 01/23/18 02:07 01/23/18 05:58 Temperature 98.1 F Pulse Rate 61 Respiratory Rate 20 19 Blood Pressure 147/75 H Pulse Oximetry 95 Intake & Output 01/22/18 01/23/18 01/23/18 18:59 06:59 18:59 Intake Total 600 / 600 Balance 600 / 600 Intake: Oral 600 / 600 Narrative: GENERAL: This is a well-nourished, well-developed elderly female patient, in no apparent distress. Awake and alert. Witnessed ambulating in the unit with the assistance of a walker without difficulty. SKIN: Warm and dry. No generalized rash. HEENT: Normocephalic. Pupils equal round and reactive. Bilateral sclera anicteric. Nose without bleeding. Airway patent. MMM. NECK: Trachea midline. CARDIOVASCULAR: Regular rate and rhythm without murmurs, gallops, or rubs. RESPIRATORY: Diminished bases. No wheezes, rales, or rhonchi. No accessory muscle use. GASTROINTESTINAL: Abdomen soft, non-tender, nondistended. Bowel Sounds normoactive x4. MUSCULOSKELETAL: Extremities without clubbing, cyanosis. Trace BLE edema, + tenderness to palpation left knee laterally. Decreased ROM. Joint swelling bilateral digits, improved. Decreased ROM left shoulder. +tender to palpation. +impingement I&II. NEUROLOGICAL: Awake and alert. Oriented to place, person. No focal neuro deficit. Moves all extremities spontaneously. Normal speech. PSYCHIATRIC: Calm and cooperative. Results - Labs CBC & Chem 7: 01/18/18 14:02 01/23/18 06:51 Laboratory Results - last 24 hr 01/23/18 06:51 Sodium 141 Potassium 3.2 L Chloride 101 Carbon Dioxide 28.8 Anion Gap 11 BUN 28 H Creatinine 1.02 H Estimated GFR 54 L Random Glucose 86 Calcium 9.0 - Imaging Impressions Knee X-Ray 01/22/18 00:00 CONCLUSION: Mild degenerative changes Shoulder X-Ray 01/22/18 00:00 CONCLUSION: Degenerative changes without definite fracture. Fracture of the humeral head with difficult to exclude. Assessment and Plan - Plan 67yo female with a PMHX significant for depression, fibromyalgia, hx of C1 and C2 fracture, HTN, chronic renal insufficiency, RA, lupus, chronic pain and migraines who presented to the ED under [place] Act for suicidal ideation. She has since been admitted to inpatient psychiatry and hospitalist services have been consulted for medical management. Depression Suicidal ideation -Management per psychiatric team Hypertension, uncontrolled -Continue on metoprolol 50 mg twice daily, hydralazine 50mg TID, lisinopril 5 mg daily and clonidine 0.1 mg twice daily. -Clonidine as needed with parameters -monitor BP and adjust treatment accordingly BLE edema, improved -continue on Lasix x 3 days - to complete today -monitor BMP MARIA LUISA on CKD stage 3 Cr appears to be near baseline -avoid nephrotoxic agents -monitor kidney function as indicated Hypokalemia, chronic, persistent while on p.o. Lasix Mag WNL K 3.2 today -patient resumed on her home dose of potassium 10meq BID, continue -Ordered one-time dose of 40meq K for today. Patient requested in liquid form, order was changed to effervescent only to find out the hospital does not have any effervescent potassium in stock. Order changed back to pill form. -Monitor K and replete as indicated Left shoulder and left knee pain s/p fall at home several weeks ago X-ray left shoulder, degenerative changes, no acute fracture identified X-ray left knee, mild degenerative changes, no fracture, no effusion -Discussed findings with patient. Recommend she follow-up with Ortho service as outpatient -Patient evaluated by PT and no needs identified Chronic pain Fibromyalgia RA Lupus -Patient states she follows with Dr. Mcnair. Is not on any DMARD's Biologics. Patient state that because of her lupus she is unable to take RA medications -Continue [place] use. [facility] Prescription Drug Monitoring Database has been queried and verified prior to prescribing the controlled substance. -Continue tizanidine prn -Continue prednisone low dose daily 5 days. DVT prophylaxis -patient is ambulatory Code Status: FULL Discussed Condition With: patient, nursing staff
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
== END 2018-01-23 16:00 | disposition home or self-care (01) ==
LOC: NEPD 13:02 → NEDA 17:19 → H260 18:00
PROVIDERS: ADMIT Psychiatry & Neurology Psychiatry; ATTEND Psychiatry & Neurology Psychiatry